=== PATIENT | female | born 1995 | race African-American/Black ===

== ENCOUNTER 2022-04-21 15:57 | Emergency (ER) | payer OTHER, SELFPAY ==
[2022-04-21 16:00] VITALS: BP 106/62; PULSE 96; RESP 16; TEMP 36.6; O2SAT 96
[2022-04-21 17:18] LABS: Basophils Percent Auto 0.5 % (0.2-1.2); Eosinophils Absolute Auto 0.1 K/mm3 (0-0.3); Eosinophils Percent Auto 1.3 % (0-4.4); Hematocrit 38.4 % (37.0-47.0); Immature Granulocyte Absolute 0.01 K/mm3 (0.00-0.031); Immature Granulocyte Percent A 0.2 % (0-0.5); Lymphocytes Absolute Auto 1.16 K/mm3 (0.9-3.2); Lymphocytes Percent Auto 19.2 % (18.3-44.2); Mean Corpuscular HGB Conc 33.9 g/dl (32-36); Mean Corpuscular Hemoglobin 33.1 pg (26-34); Mean Corpuscular Volume 97.7 fl (80-100); Mean Platelet Volume 9.3 fl (7.4-10.4); Monocytes Absolute Auto 0.4 K/mm3 (0.1-0.6); Monocytes Percent Auto 6.8 % (2.6-8.5); Neutrophils Absolute Auto 4.4 K/mm3 (1.3-6.7); Platelet Count Result 203 k/mm3 (150-375); Red Blood Count 3.93 M/mm3 (4.2-5.4); Red Cell Distribution Width 11.7 % (11.5-14.5)
[2022-04-21 17:30] LABS: Alanine Aminotransferase 39 U/L (6-35); Albumin Level 4.8 g/dL (3.5-5.1); Alkaline Phosphatase 53 U/L (38-126); Anion Gap 5 mmol/L (8-16); Aspartate Amino Transferase 30 U/L (14-36); Bilirubin,Total 0.6 mg/dL (0.2-1.3); Blood Urea Nitrogen 15 mg/dL (7-17); Calcium 8.9 mg/dL (8.4-10.2); Carbon Dioxide 26 mmol/L (22-30); Chloride 102 mmol/L (98-107); Estimated CRCL calculation 78 ml/min; Estimated Glomerular Filt Rate > 60; Glucose 132 mg/dL (65-110); Potassium 3.2 mmol/L (3.4-5.0); Sodium 133 mmol/L (137-145)
--- NOTE | 2022-04-21 18:04 | ED.FEMALEGU ---
HPI - Female Genitourinary General Chief complaint: Vaginal Bleeding Stated complaint: 6 wks , passed fetus in toilet Time Seen by Provider: 04/21/22 16:45 Source: patient Mode of arrival: ambulatory Limitations: no limitations History of Present Illness HPI Narrative: 27-year-old female presents today with complaints of vaginal bleeding and possible passing of a clot/fetus in the toilet today. Patient seen at [facility] [place] [place] in [place] on Friday for threatened miscarriage. Beta hCG on Friday was 2410 hemoglobin was in the 13's. Patient currently has no pain. Patient denies heavy vaginal bleeding, dizziness, chest pain, or shortness of breath. Related Data Allergies Allergy/AdvReac Type Severity Reaction Status Date / Time No Known Allergies Allergy Unverified 04/21/22 16:02 Review of Systems Review of Systems: CONSTITUTIONAL: Denies fever, chills, or sweats. EYES: Denies visual changes, redness, or discharge. ENT: Denies rhinorrhea, congestion, sore throat, or otalgia. CARDIOVASCULAR: Denies chest pain, palpitations, or edema. RESPIRATORY: Denies cough or dyspnea. GASTROINTESTINAL: Denies abdominal pain, nausea, vomiting, or diarrhea. GENITOURINARY: Vaginal bleeding with possible passing of a clot/fetus. Denies dysuria or hematuria. SKIN: Denies rash or itching. MUSCULOSKELETAL: Denies back pain, joint pain, or myalgia. NEUROLOGIC: Denies headache, numbness, dizziness, or weakness. PSYCHIATRIC: Denies anxiety or depression. Exam Narrative: GENERAL: Well-appearing, well-nourished, and in no acute distress. HEAD: Normocephalic, atraumatic. EYES: PERRLA and EOMI. NECK: Supple. No adenopathy or masses. No carotid bruits or JVD CHEST: Clear to auscultation. No respiratory distress. No wheezes rales or rhonchi HEART: Regular rate and rhythm. No murmur heard. Normal peripheral pulses. ABDOMEN: Soft, nontender, nondistended, normal active bowel sounds. : Patient declined pelvic exam at this time. Patient had pelvic exam and ultrasound done on Friday. SKIN: Warm, dry, no rash. NEURO: No focal deficits. Alert and oriented x3. PSYCH: Normal mood and affect. Course Course Emergency Course: 27-year-old female recently seen at another hospital on Friday. Patient was discharged with diagnosis of threatened miscarriage. Patient here with complaints of possible passing of fetus. Patient currently declining pelvic exam. Labs reviewed with patient. Patient aware she is currently having a miscarriage. She is instructed to follow-up with OB and call them on Friday. Vital Signs Vital signs: Vital Signs Temperature 36.6 C 04/21/22 16:00 Pulse Rate 96 04/21/22 16:00 Respiratory Rate 16 04/21/22 16:00 Blood Pressure 106/62 04/21/22 16:00 Pulse Oximetry 96 04/21/22 16:00 Oxygen Delivery Room Air 04/21/22 16:00 Temperature 36.6 C 04/21/22 16:00 Pulse Rate 96 04/21/22 16:00 Respiratory Rate 16 04/21/22 16:00 Blood Pressure 106/62 04/21/22 16:00 Pulse Oximetry 96 04/21/22 16:00 Oxygen Delivery Room Air 04/21/22 16:00 MDM - Female Genitourinary MDM Narrative Medical decision making narrative: 27-year-old female HPI as noted. Patient just seen in another emergency department on Friday. Patient declining vaginal exam at this time. Beta hCG on Friday was 2410 and today beta-hCG is 1613. Patient is B+. Hemoglobin today 13. RhoGAM not needed. Diagnosed with spontaneous . Patient is a 43 to follow-up with OB Friday. Differential Diagnosis Differential diagnosis: Likely other (Spontaneous , vaginal bleeding in ) Lab Data Result diagrams: 04/21/22 17:12 04/21/22 17:12 Labs: Lab Results 04/21/22 04/21/22 04/21/22 Range/Units 17:12 17:12 17:12 WBC 6.0 (4.5-10.0) K/mm3 RBC 3.93 L (4.2-5.4) M/mm3 Hgb 13.0 (12.0-15.0) g/dL Hct 38.4 (37.0-47.0) % MCV 97.7 (80-100) fl MCH 33.1 (26-34
== END 2022-04-21 18:30 | disposition home or self-care (01) ==
PROVIDERS: Emergency Provider Nurse Practitioner Family
DX: O03.9 Complete or unspecified spontaneous abortion without complication (principal)
CPT/HCPCS: 36415; 80053; 84702; 85025; 86900; 86901; 99283

== ENCOUNTER 2023-05-06 06:41 | Emergency (ER) | payer OTHER, SELFPAY ==
[2023-05-06 06:46] VITALS: BP 148/75; PULSE 93; RESP 14; TEMP 36.6; O2SAT 100
[2023-05-06 07:18] VITALS: BP 120/75; PULSE 78; RESP 18; O2SAT 100
--- NOTE | 2023-05-06 08:04 | PC.NURSE ---
pt LWBS, unable to wait. pt left with steady gait.
== END 2023-05-06 08:05 | disposition left against medical advice (07) ==
DX: G44.209 Tension-type headache, unspecified, not intractable (principal)
CPT/HCPCS: 99199

== ENCOUNTER 2024-06-05 22:45 | Outpatient (CLI) | payer OTHER, SELFPAY ==
--- NOTE | 2024-06-05 23:19 | PC.NURSE ---
Domi was notified via phone of the patient arriving to the OB department with complaints of generalized itching that started two weeks ago on her hands and feet has since spread all over. CNM notified that the patient has a OB at [facility] and was told via provider to go to the ER for her symptoms. notified that patient has taken Benadryl and it has not been working to reduce the itching. Anitra Pereyra gave orders to get a CMP, Bile Acids, and to get an NST.
[2024-06-06 00:33] LABS: Appearance Urine Clear (Clear); Bilirubin Urine Negative (Negative); Blood Urine Negative (Negative); Color Urine Yellow (Yellow); Glucose Urine UA Negative (Negative); Ketones Urine Negative (Negative); Leukocyte Esterase Ur Negative LEU/UL (Negative); Nitrate Urine Negative (Negative); Protein Urine Negative (Negative); Specific Grav Ur 1.011 (1.001-1.035); Urobilinogen Urine 0.2 mg/dL (<2.0); pH Urine 7.5 (5.0-9.0)
[2024-06-06 00:48] LABS: Add Urine Microscopic? NO
[2024-06-06 00:49] LABS: Alanine Aminotransferase 21 U/L (6-35); Albumin Level 3.7 g/dL (3.5-5.1); Alkaline Phosphatase 131 U/L (38-126); Anion Gap 7 mmol/L (4-12); Aspartate Amino Transferase 27 U/L (14-36); Bilirubin,Total 0.3 mg/dL (0.2-1.3); Blood Urea Nitrogen 8 mg/dL (7-17); Calcium 8.9 mg/dL (8.4-10.2); Carbon Dioxide 24 mmol/L (22-30); Chloride 105 mmol/L (98-107); Estimated Glomerular Filt Rate > 60; Glucose 67 mg/dL (65-110); Potassium 3.7 mmol/L (3.4-5.0); Sodium 136 mmol/L (137-145)
--- NOTE | 2024-06-06 01:30 | PC.NURSE ---
Domi in department for delivery. Update given to CNM on lab results. Anitra Pereyra reviewed tracing and talked to patient at the bedside. New orders received at this time for Ursodiol 300mg first dose given at time of care. RX sent to pharmacy.
--- NOTE | 2024-06-06 01:41 | OBADM ---
This patient, Irina Cuba, admitted to the OB room for observation. Patient/family oriented to hospital policies and general routines including ID bracelet, bed and alarms, visiting hours, pain management, procedures, bathroom and other care routines, personal items, smoking policy, room service/diet, and visiting hours. Patient/Family are encouraged to report perceived risks to care and to ask questions if they do not understand what they are told or what they should do.
[2024-06-06 02:04] VITALS: BMI 23.3
[2024-06-06] MEDS: ursodioL 300 MG CAPSULE PO (02:15)
[2024-06-12 18:57] LABS: Chenodeoxycholic Acid 1.6 umol/L (< OR = 3.9); Cholic Acid 0.6 umol/L (< OR = 2.8); Deoxycholic Acid <0.5 umol/L (< OR = 2.3); Total Bile Acids 2.2 umol/L (< OR = 8.3)
== END 2024-06-06 02:44 | disposition home or self-care (01) ==
PROVIDERS: Advanced Practice Midwife; Visit Provider Obstetrics & Gynecology
DX: Z34.90 Encounter for supervision of normal pregnancy, unspecified, unspecified trimester (principal); Z3A.00 Weeks of gestation of pregnancy not specified
CPT/HCPCS: 36415; 59025; 80053; 81003; 82542; A9270

== ENCOUNTER 2024-12-02 17:01 | Emergency (ER) | payer OTHER, SELFPAY ==
--- NOTE | ~2024-12-02 | CT_ITS ---
EXAMINATION: CT abdomen pelvis wo con DATE: 12/02/2024 19:22 INDICATION: Abdomen pain TECHNIQUE: Computed tomography (CT) of the abdomen and pelvis was performed without intravenous contr ast. The dose-length product was 192.92 mGy-cm. Automated exposure control and iterative reconstruction technique were employed. COMPARISON: None. FINDINGS: Lung bases are unremarkable. Heart size normal. No significant pleural or pericardial effus ion. The liver, spleen, pancreas, adrenal glands and kidneys are unremarkable for noncontrast CT. Gal lbladder is present. Nonobstructive bowel gas pattern. No free air or free fluid. No hydronephrosis. There are pelvic phleboliths. No lymphadenopathy. No acute osseous abnormality. IMPRESSION: 1. No acute abdominal abnormality. Reviewed, dictated and finalized at location A. [employer]
[2024-12-02 17:13] VITALS: BP 129/93; PULSE 76; RESP 18; TEMP 36.6; O2SAT 100
--- NOTE | 2024-12-02 17:31 | ED_ITS ---
HPI - Abdominal Pain General Chief Complaint: Abdominal Pain <Essie Johnson APRN - Last Filed: 12/02/24 17:33> Stated Complaint: ABDOMINAL BURNING <Essie Johnson APRN - Last Filed: 12/02/24 17:33> Time Seen by Provider: 12/02/24 17:20 <Essie Johnson APRN - Last Filed: 12/02/24 17:33> Focused HPI: Patient is a 29-year-old female who presents to the ER with vomiting and nausea that has been going on for approximately 2-3 weeks. She endorses a history of celiac disease, GERD, asthma. Patient reports she often has bouts of vomiting and nausea but has gotten exceptionally worse recently. She also endorses upper abdominal pain and ?a strange taste in my mouth. Patient endorses coughing and reports she will be sleeping and wake up ?choking. She endorses daily marijuana use to help increase her p.o. intake. Patient denies urinary symptoms, shortness of breath, lower abdominal pain, or back pain. GENERAL: Well-appearing, well-nourished, and in no acute distress. HEAD: Normocephalic, atraumatic. CHEST: Clear to auscultation. ?No respiratory distress. HEART: Regular rate and rhythm.? NEURO: ?Alert and oriented x3. Patient screened in triage and initial orders placed.? ?Additional care and disposition to be based upon?diagnostic testing and treatment. <Essie Jhonson APRN - Last Filed: 12/02/24 17:33> Related Data Home Medications: Home Medications ?Medication ?Instructions ?Recorded ?Confirmed ?Last Taken ?Type albuterol sulfate 90 mcg/actuation inhalation 06/06/24 Unknown History aerosol inhaler vitamins no.119-iron tablet PO 06/06/24 Unknown History fumarate 29 mg-folic acid 1 mg tablet (Se-Lizet-19) <Essie Johnson APRN - Last Filed: 12/02/24 17:33> Allergies/Adverse Reactions: Allergies Allergy/AdvReac Type Severity Reaction Status Date / Time Latex, Natural Rubber Allergy Rash Verified 12/02/24 18:02 <Essie Johnson APRN - Last Filed: 12/02/24 17:33> Review of Systems 2 Review of Systems: CONSTITUTIONAL: Denies fever GASTROINTESTINAL: Reports abdominal pain, nausea, vomiting <Pat Schneider PA-C - Last Filed: 12/02/24 19:53> All systems reviewed & are unremarkable except as noted in HPI and below < Pat Schneider PA-C - Last Filed: 12/02/24 19:53> PMFSH Past Medical History Medical History: Medical History (Updated 12/02/24 @ 19:50 by Pat Schneider PA-C) History of gastroesophageal reflux (GERD) <Essie Johnson RESIDENT ASSISTANT - Last Filed: 12/02/24 17:33> Social History Social History: Social History (Updated 12/02/24 @ 19:50 by Pat Schneider PA-C) Substance use: current Substance use type: marijuana <Essie Johnson, RESIDENT ASSISTANT - Last Filed: 12/02/24 17:33> Exam 2 Narrative: GENERAL: Well-appearing, well-nourished, and in no acute distress. HEAD: Normocephalic, atraumatic. EYES: EOMI. CHEST: Clear to auscultation. No respiratory distress. No wheezes rales or rhonchi HEART: Regular rate and rhythm. No murmur heard. Normal peripheral pulses. ABDOMEN: Soft, nontender, nondistended, normal active bowel sounds. EXTREMITIES: Normal range of motion. No edema. SKIN: Warm, dry, no rash. NEURO: No focal deficits. Alert and oriented x3. PSYCH: Normal mood and affect <Pat Schneider PA-C - Last Filed: 12/02/24 19:53> Course Course Emergency Course: Patient updated on her workup and agrees with plan of care <Pat Schneider PA-C - Last Filed: 12/02/24 19:53> Vital Signs Vital signs: Vital Signs Temperature 97.9 F 12/02/24 17:13 Pulse Rate 76 12/02/24 17:13 Respiratory Rate 18 12/02/24 17:13 Blood Pressure 129/93 H 12/02/24 17:13 Pulse Oximetry 100 12/02/24 17:13 Oxygen Delivery Room Air 12/02/24 17:13 Temperature 97.9 F 12/02/24 17:13 Pulse Rate 76 12/02/24 17:13 Respiratory Rate 18 12/02/24 17:13 Blood Pressure 129/93 H 12/02/24 17:13 Pulse Oximetry 100 12/02/24 17:13 Oxygen Delivery Room Air 12/02/24 17:13 <Essie Johnson, RESIDENT ASSISTANT - Last Filed: 12/02/24 17:33> Vital Signs Temperature 97.9 F 12/02/24 17:13 Pulse Rate 76 12/02/24 17:13 Respiratory Rate 18 12/02/24 17:13 Blood Pressure 129/93 H 12/02/24 17:13 Pulse Oximetry 100 12/02/24 17:13 Oxygen Delivery Room Air 12/02/24 17:13 Temperature 97.9 F 12/02/24 17:13 Pulse Rate 76 12/02/24 17:13 Respiratory Rate 18 12/02/24 17:13 Blood Pressure 129/93 H 12/02/24 17:13 Pulse Oximetry 100 12/02/24 17:13 Oxygen Delivery Room Air 12/02/24 17:13 <Pat Schneider PA-C - Last Filed: 12/02/24 19:53> MDM - Abdominal Pain MDM Narrative Medical decision making narrative: Patient presents the emergency department for abdominal discomfort, nausea and vomiting. Reporting severe acid reflux. She is afebrile and nontoxic appearing. Her vitals are stable. Cbc without leukocytosis. Metabolic panel and lipase without concerning findings. Urine without evidence of infection. CT abdomen and pelvis without concerning findings. Patient resting comfortably. Updated on her workup. 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 She was given warnings to return to the ER <Pta Schneider PA-C - Last Filed: 12/02/24 19:53> Differential Diagnosis Differential diagnosis: Likely gastroenteritis, pancreatitis and other (GERD, esophagitis, biliary colic) <Pat Schneider PA-C - Last Filed: 12/02/24 19:53> Lab Data Attestation: I reviewed the patient's lab results. <Pat Schneider PA-C - Last Filed: 12/02/24 19:53> Result diagrams: 12/02/24 17:41 12/02/24 17:41 <Essie Johnson, RESIDENT ASSISTANT - Last Filed: 12/02/24 17:33> Labs: Lab Results 12/02/24 12/02/24 12/02/24 Range/Units 17:41 18:03 18:42 WBC 5.4 (4.5-10.0) K/mm3 RBC 3.81 L (4.2-5.4) M/mm3 Hgb 11.5 L (12.0-15.0) g/dL Hct 35.1 L (37.0-47.0) % MCV 92.1 (80-100) fl MCH 30.2 (26-34) pg MCHC 32.8 (32-36) g/dl RDW 16.4 H (11.5-14.5) % Plt Count 223 (150-375) k/mm3 MPV 9.7 (7.4-10.4) fl Immature Gran % (Auto) 0.2 (0-0.5) % Neut % (Auto) 48.7 (45.5-73.1) % Lymph % (Auto) 35.2 (18.3-44.2) % Schley % (Auto) 8.7 H (2.6-8.5) % Eos % (Auto) 6.3 H (0-4.4) % Baso % (Auto) 0.9 (0.2-1.2) % Lymph # (Auto) 1.91 (0.9-3.2) K/mm3 Schley # (Auto) 0.5 (0.1-0.6) K/mm3 Eos # (Auto) 0.3 (0-0.3) K/mm3 Baso # (Auto) 0.1 (0.0-0.1) K/mm3 Abs Immat Gran (auto) 0.01 (0.00-0.031) K/mm3 Absolute Neuts (auto) 2.7 (1.3-6.7) K/mm3 Absolute Nucleated RBC 0.000 (0.0-0.012) K/mm3 Nucleated RBC % 0.0 (0.0-0.2) % Sodium 137 (137-145) mmol/L Potassium 3.8 (3.4-5.0) mmol/L Chloride 105 (98-107) mmol/L Carbon Dioxide 27 (22-30) mmol/L Anion Gap 5 (4-12) mmol/L BUN 16 (7-17) mg/dL Creatinine 0.78 (0.7-1.0) mg/dL Estim Creat Clear Calc 80 ml/min Estimated GFR > 60 (59 - ) Glucose 81 (65-110) mg/dL Calcium 9.1 (8.4-10.2) mg/dL Total Bilirubin 0.5 (0.2-1.3) mg/dL AST 29 (14-36) U/L ALT 21 (6-35) U/L Alkaline Phosphatase 53 (38-126) U/L Total Protein 7.0 (6.3-8.2) g/dL Albumin 4.5 (3.5-5.1) g/dL Lipase 102 (23-300) U/L Beta HCG, Quant < 2.39 mIU/ML Urine Color Yellow (Yellow) Urine Appearance Clear (Clear) Urine pH 6.5 (5.0-9.0) Ur Specific [place] 1.020 (1.001-1.035) Urine Protein Negative (Negative) mg/dL Urine Glucose (UA) Negative (Negative) mg/dL Urine Ketones Negative (Negative) mg/dL Ur Blood (Man) Negative (Negative) Urine Nitrate Negative (Negative) Urine Bilirubin Negative (Negative) Urine Urobilinogen 0.2 (<2.0) mg/dL Leukocyte Esterase Rfl Trace H (Negative) LEE/UL Urine RBC 0-2 (0-2) /hpf Urine WBC 0-5 (0-3) /hpf Ur Squamous Epith Cells None seen (Few) /hpf Urine Bacteria None seen /hpf Urine Casts 0-2 POC Urine HCG, Qual Negative (Negative) Influenza A (RT-PCR) Negative (Negative) Influenza B (RT-PCR) Negative (Negative) RSV (RT-PCR) Negative (Negative) SARS-CoV-2 RNA (RT-PCR) Negative (Negative) <Essie Johnson, RESIDENT ASSISTANT - Last Filed: 12/02/24 17:33> Lab Results 12/02/24 12/02/24 12/02/24 Range/Units 17:41 18:03 18:42 WBC 5.4 (4.5-10.0) K/mm3 RBC 3.81 L (4.2-5.4) M/mm3 Hgb 11.5 L (12.0-15.0) g/dL Hct 35.1 L (37.0-47.0) % MCV 92.1 (80-100) fl MCH 30.2 (26-34) pg MCHC 32.8 (32-36) g/dl RDW 16.4 H (11.5-14.5) % Plt Count 223 (150-375) k/mm3 MPV 9.7 (7.4-10.4) fl Immature Gran % (Auto) 0.2 (0-0.5) % Neut % (Auto) 48.7 (45.5-73.1) % Lymph % (Auto) 35.2 (18.3-44.2) % Schley % (Auto) 8.7 H (2.6-8.5) % Eos % (Auto) 6.3 H (0-4.4) % Baso % (Auto) 0.9 (0.2-1.2) % Lymph # (Auto) 1.91 (0.9-3.2) K/mm3 Schley # (Auto) 0.5 (0.1-0.6) K/mm3 Eos # (Auto) 0.3 (0-0.3) K/mm3 Baso # (Auto) 0.1 (0.0-0.1) K/mm3 Abs Immat Gran (auto) 0.01 (0.00-0.031) K/mm3 Absolute Neuts (auto) 2.7 (1.3-6.7) K/mm3 Absolute Nucleated RBC 0.000 (0.0-0.012) K/mm3 Nucleated RBC % 0.0 (0.0-0.2) % Sodium 137 (137-145) mmol/L Potassium 3.8 (3.4-5.0) mmol/L Chloride 105 (98-107) mmol/L Carbon Dioxide 27 (22-30) mmol/L Anion Gap 5 (4-12) mmol/L BUN 16 (7-17) mg/dL Creatinine 0.78 (0.7-1.0) mg/dL Estim Creat Clear Calc 80 ml/min Estimated GFR > 60 (59 - ) Glucose 81 (65-110) mg/dL Calcium 9.1 (8.4-10.2) mg/dL Total Bilirubin 0.5 (0.2-1.3) mg/dL AST 29 (14-36) U/L ALT 21 (6-35) U/L Alkaline Phosphatase 53 (38-126) U/L Total Protein 7.0 (6.3-8.2) g/dL Albumin 4.5 (3.5-5.1) g/dL Lipase 102 (23-300) U/L Beta HCG, Quant < 2.39 mIU/ML Urine Color Yellow (Yellow) Urine Appearance Clear (Clear) Urine pH 6.5 (5.0-9.0) Ur Specific [place] 1.020 (1.001-1.035) Urine Protein Negative (Negative) mg/dL Urine Glucose (UA) Negative (Negative) mg/dL Urine Ketones Negative (Negative) mg/dL Ur Blood (Man) Negative (Negative) Urine Nitrate Negative (Negative) Urine Bilirubin Negative (Negative) Urine Urobilinogen 0.2 (<2.0) mg/dL Leukocyte Esterase Rfl Trace H (Negative) LEE/UL Urine RBC 0-2 (0-2) /hpf Urine WBC 0-5 (0-3) /hpf Ur Squamous Epith Cells None seen (Few) /hpf Urine Bacteria None seen /hpf Urine Casts 0-2 POC Urine HCG, Qual Negative (Negative) Influenza A (RT-PCR) Negative (Negative) Influenza B (RT-PCR) Negative (Negative) RSV (RT-PCR) Negative (Negative) SARS-CoV-2 RNA (RT-PCR) Negative (Negative) <Pat Schneider PA-C - Last Filed: 12/02/24 19:53> Imaging Data Radiologist's impression: ITS Impressions Abdomen/Pelvis CT 12/02/24 19:27 IMPRESSION: 1. No acute abdominal abnormality. <Essie Johnson APRN - Last Filed: 12/02/24 17:33> ITS Impressions Abdomen/Pelvis CT 12/02/24 19:27 IMPRESSION: 1. No acute abdominal abnormality. <JANA Kingston Last Filed: 12/02/24 19:53> Critical Care Time Critical Care Time Critical Care Time: No <JANA Kingston Last Filed: 12/02/24 19:53> Discharge Plan Discharge Clinical Impression: Abdominal pain Qualifiers: Abdominal location: epigastric Qualified Code(s): R10.13 - Epigastric pain <Essie Johnson APRN - Last Filed: 12/02/24 17:33> Patient Disposition: Home, Self-Care <Essie Johnson APRN - Last Filed: 12/02/24 17:33> Condition: Improved <Essie Johnson APRN - Last Filed: 12/02/24 17:33> Instructions: GERD (Gastroesophageal Reflux Disease) (ED), Abdominal Pain (ED) <Essie Johnson APRN - Last Filed: 12/02/24 17:33> Additional Instructions: Return to the ER if you experience fever, abdominal pain with nausea and vomiting, you are unable to keep down liquids or solids, blood in the stool, pain or burning with urination, blood in the urine or any other symptoms that are concerning to you Small, frequent meals. [place] diet. Remain well hydrated. Continue your omeprazole. Avoid spicy/acidic foods. Avoid anti-inflammatories. Avoid eating just before bedtime Follow up with your motion picture actor <Essie Johnson APRN - Last Filed: 12/02/24 17:33> Patient Language: Arabic <Essie Johnson APRN - Last Filed: 12/02/24 17:33> Prescriptions: New ondansetron 4 mg tablet,disintegrating 4 mg PO Q8H PRN (Reason: nausea and vomiting) Qty: 14 0RF No Action albuterol sulfate 90 mcg/actuation HFA aerosol inhaler INHALATION Se-Lizet-19 29 mg iron- 1 mg tablet PO ursodiol 300 mg Capsule 300 mg PO BID Qty: 14 0RF <Essie Johnson APRN - Last Filed: 12/02/24 17:33> Follow-up/Referrals: UNKNOWN,DOCTOR [Primary Care Provider] - <Essie Johnson APRN - Last Filed: 12/02/24 17:33>
[2024-12-02 17:49] LABS: Basophils Absolute Auto 0.1 K/mm3 (0.0-0.1); Basophils Percent Auto 0.9 % (0.2-1.2); Eosinophils Absolute Auto 0.3 K/mm3 (0-0.3); Eosinophils Percent Auto 6.3 % (0-4.4); Hematocrit 35.1 % (37.0-47.0); Hemoglobin 11.5 g/dL (12.0-15.0); Immature Granulocyte Absolute 0.01 K/mm3 (0.00-0.031); Immature Granulocyte Percent A 0.2 % (0-0.5); Lymphocytes Absolute Auto 1.91 K/mm3 (0.9-3.2); Lymphocytes Percent Auto 35.2 % (18.3-44.2); Mean Corpuscular HGB Conc 32.8 g/dl (32-36); Mean Corpuscular Hemoglobin 30.2 pg (26-34); Mean Corpuscular Volume 92.1 fl (80-100); Mean Platelet Volume 9.7 fl (7.4-10.4); Monocytes Absolute Auto 0.5 K/mm3 (0.1-0.6); Monocytes Percent Auto 8.7 % (2.6-8.5); Neutrophils Absolute Auto 2.7 K/mm3 (1.3-6.7); Neutrophils Percent Auto 48.7 % (45.5-73.1); Platelet Count Result 223 k/mm3 (150-375); Red Blood Count 3.81 M/mm3 (4.2-5.4); Red Cell Distribution Width 16.4 % (11.5-14.5); White Blood Count 5.4 K/mm3 (4.5-10.0)
[2024-12-02 18:00] LABS: Alanine Aminotransferase 21 U/L (6-35); Albumin Level 4.5 g/dL (3.5-5.1); Alkaline Phosphatase 53 U/L (38-126); Anion Gap 5 mmol/L (4-12); Aspartate Amino Transferase 29 U/L (14-36); Bilirubin,Total 0.5 mg/dL (0.2-1.3); Blood Urea Nitrogen 16 mg/dL (7-17); Calcium 9.1 mg/dL (8.4-10.2); Carbon Dioxide 27 mmol/L (22-30); Chloride 105 mmol/L (98-107); Estimated CRCL calculation 80 ml/min; Estimated Glomerular Filt Rate > 60; Glucose 81 mg/dL (65-110); Lipase 102 U/L (23-300); Potassium 3.8 mmol/L (3.4-5.0); Sodium 137 mmol/L (137-145)
[2024-12-02] MEDS: LIDOCAINE 2% VISC SOLN 15 ML UDC 20 ML PO (18:01)
[2024-12-02] MEDS: MAG HYDROX/AL HYDROX/SIMETH 30 ML UDC PO (18:01)
[2024-12-02 18:15] LABS: Beta HCG Quantitative < 2.39 mIU/ML
[2024-12-02 18:16] LABS: Add Urine Microscopic? YES; Appearance Urine Clear (Clear); Bacteria Urine None Seen /hpf; Bilirubin Urine Negative (Negative); Blood Urine Negative (Negative); Color Urine Yellow (Yellow); Glucose Urine UA Negative (Negative); Ketones Urine Negative (Negative); Leukocyte Esterase Ur Trace LEU/UL (Negative); Nitrate Urine Negative (Negative); Non Pathogenic Casts 0-2; Protein Urine Negative (Negative); RBC Urine 0-2 /hpf (0-2); Squamous Epithelial Cell Urine None Seen /hpf (Few); Urobilinogen Urine 0.2 mg/dL (<2.0); WBC Urine 0-5 /hpf (0-3); pH Urine 6.5 (5.0-9.0)
[2024-12-02 18:25] LABS: Influenza A QL RT-PCR Negative (Negative); Influenza B QL RT-PCR Negative (Negative); RSV RNA, RT-PCR Negative (Negative); SARS-CoV-2 RNA PCR Negative (Negative)
[2024-12-02 18:43] LABS: BEDSIDEPREGUCG Negative (Negative)
[2024-12-02] MEDS: ONDANSETRON INJ 4 MG/2 ML VIAL IV PUSH (18:57)
[2024-12-02] MEDS: FAMOTIDINE 20 MG/2 ML VIAL IV PUSH (18:57)
[2024-12-02 20:16] VITALS: BP 126/88; PULSE 82; RESP 16; O2SAT 99
[2024-12-02 20:17] VITALS: BP 126/88; PULSE 82; RESP 16; O2SAT 99
== END 2024-12-02 20:19 | disposition home or self-care (01) ==
PROVIDERS: Registered Nurse; Emergency Provider Physician Assistant
DX: R10.13 Epigastric pain (principal); J45.909 Unspecified asthma, uncomplicated; K90.0 Celiac disease; K21.9 Gastro-esophageal reflux disease without esophagitis; Z20.822 Contact with and (suspected) exposure to COVID-19
CPT/HCPCS: 36415; 74176; 80053; 81001; 81025; 83690; 84702; 85025; 87637; 96374; 96375; 99284; A9270; J2405

== ENCOUNTER 2025-05-31 06:43 | Emergency (ER) | payer OTHER, SELFPAY ==
--- OUTSIDE RECORDS SUMMARY | 2025-05-31 06:45 | XMS_ITS | Data Portability ---
Author Organization [facility] Address [address] [place] [address] Assessment No assessment recorded. Plan of Treatment Reminders Order Date Submit Date Provider Last Modified By Organization Details Last Modified Time Details Appointments None recorded. Lab CMP, serum or plasma 2024 025 [facility] (Lab), [address] [place], [address], 20:36:55 CBC 2024 025 [facility] (Lab), [address] [place], [address], 20:57:38 CBC w/ auto diff 2021 022 [facility] (Lab), [address] [place], [address], 20:25:31 CMP, serum or plasma 2021 [facility] (Lab), [address] [place], [address], 20:45:54 Referral endocrinol ogy referral 2021 [facility] , [address], [address], [place], [address], 16:55:15 Procedures esophagoga stroduoden oscopy with esophageal dilation (PROC) - PATIENT TO FOLLOW UP 2 WEEKS IN CLINIC 2024 025 [facility] (Surgery Sched), [address] [place], [address], 15:24:39 Surgeries None recorded. Imaging None recorded. Medication Orders ondansetro n 4 mg disintegra ting tablet 2024 025 [facility][id number], [address], [place], [place], [id number], 5 11:08:16 famotidine 20 mg tablet 2024 025 [facility] #[id number], [address], [place], [place], [id number], 5 11:09:00 docusate sodium 100 mg capsule [address] [facility][id number], [address], [place], [place], [id number], 11:05:24 omeprazole 40 mg capsule,de layed release 2021 [facility] #[id number], [address], [place], [place], [id number], 10:43:14 Patient TargetsNo targets recorded. Patient InstructionsNo instructions recorded. Reason for Referral Endocrinology Referral for A bnormal weight loss Referring Physician: Wayne Jordan, Gastroenterology, Encounter Date: 09/06/2022 Results Created Date Observation Date Name Description Value Unit Range Abnormal Flag Note LastModifiedBy Organization Detail LastModifiedTime 09/06/2009/06/2022 CBC W/DIF F WBC 4.3 K/uL 3.4-10 .8 Not Available [facility] (Lab) [address], [place], [address], 09/06/2022 20:25:31 09/06/20 22 09/06/2022 CBC W/DIF F red blood count 3.9 M/uL 4.2-5. 4 low Not Available [facility] (Lab) [address], [place], [address], 09/06/2022 20:25:31 09/06/20 22 09/06/2022 CBC W/DIF F hemoglobin 13.1 g/dL 11.5-1 5.5 Not Available [facility] (Lab) [address], [place], [address], 09/06/2022 20:25:31 09/06/20 22 09/06/2022 CBC W/DIF F hematocrit 37.5 % 36.0-4 8.0 Not Available [facility] (Lab) [address] [facility], [place], [address], 09/06/2022 20:25:31 09/06/20 22 09/06/2022 CBC W/DIF F MCV 97 fL 80-95 high Not Available [facility] (Lab) [address] [facility], [place], [address], 09/06/2022 20:25:31 09/06/20 22 09/06/2022 CBC W/DIF F MCH 34 pg 27-32 high Not Available [facility] (Lab) [address], [place], [address], 09/06/2022 20:25:31 09/06/20 22 09/06/2022 CBC W/DIF F MCHC 35 g/dL 32-36 Not Available [facility] (Lab) [address] [place], [address], 09/06/2022 20:25:31 09/06/20 22 09/06/2022 CBC W/DIF F platelets 241 K/uL 155-37 9 Not Available [facility] (Lab) [address] [place], [address], 09/06/2022 20:25:31 09/06/20 22 09/06/2022 CBC W/DIF F RDW 12.4 % 11.5-1 4.5 Not Available [facility] (Lab) [address] [place], [address], 09/06/2022 20:25:31 09/06/20 22 09/06/2022 CBC W/DIF F MPV 10.5 fL 8.9-12 .7 Not Available [facility] (Lab) [address] [facility], [place], [address], 09/06/2022 20:25:31 09/06/20 22 09/06/2022 CBC W/DIF F NRBC (auto) 0 % Not Available [facility] (Lab) [address] [facility], [place], [address], 09/06/2022 20:25:31 09/06/20 22 09/06/2022 CBC W/DIF F neutrophils absolute 2.2 K/uL 1.4-7. 0 Not Available [facility] (Lab) [address] [facility], [place], [address], 09/06/2022 20:25:31 09/06/20 22 09/06/2022 CBC W/DIF F lymphs (absolute) 1.1 K/uL 0.7-3. 1 Not Available [facility] (Lab) [address] [place], [address], 09/06/2022 20:25:31 09/06/20 22 09/06/2022 CBC W/DIF F monocytes (absolute) 0.4 K/uL 0.1-0. 9 Not Available [facility] (Lab) [address] [place], [address], 09/06/2022 20:25:31 09/06/20 22 09/06/2022 CBC W/DIF F eos (absolute) 0.5 K/uL 0.0-0. 4 high Not Available [facility] (Lab) [address] [place], [address], 09/06/2022 20:25:31 09/06/20 22 09/06/2022 CBC W/DIF F baso (absolute) 0.1 K/uL 0.0-0. 3 Not Available [facility] (Lab) [address] [facility], [place], [address], 09/06/2022 20:25:31 09/06/20 22 09/06/2022 CBC W/DIF F immature grans( abs) 0.0 K/uL Not Available [facility] (Lab) [address] [facility], [place], [address], 09/06/2022 20:25:31 09/06/20 22 09/06/2022 CBC W/DIF F neut % 51.8 % 40.0-7 4.0 Not Available [facility] (Lab) [address] [facility], [place], [address], 09/06/2022 20:25:31 09/06/20 22 09/06/2022 CBC W/DIF F lymphs % 26.1 % 14.0-4 6.0 Not Available [facility] (Lab) [address] [facility], [place], [address], 09/06/2022 20:25:31 09/06/20 22 09/06/2022 CBC W/DIF F mono % 8.2 % 4.0-12 .0 Not Available [facility] (Lab) [address] [facility], [place], [address], 09/06/2022 20:25:31 09/06/20 22 09/06/2022 CBC W/DIF F eos % 13 % 0-5 high Not Available [facility] (Lab) [address] [facility], [place], [address], 09/06/2022 20:25:31 09/06/20 22 09/06/2022 CBC W/DIF F baso % 1.2 % 0.0-1. 0 high Not Available [facility] (Lab) [address] [facility], [place], [address], 09/06/2022 20:25:31 09/06/20 22 09/06/2022 CBC W/DIF F immature grans% 0.0 % Not Available [facility] ([facility]) [address] [facility], [place], [address], 09/06/2022 20:25:31 09/06/20 22 09/06/2022 COMPR EHENS CITLALLI METAB OLIC PANEL glucose, serum 82 mg/dL 65-99 Not Available [facility] (Lab) [address] [place], [address], 09/06/2022 20:45:54 09/06/20 22 09/06/2022 COMPR EHENS CITLALLI METAB OLIC PANEL BUN 15 mg/dL 8-26 Not Available [facility] (Lab) [address] [facility], [place], [address], 09/06/2022 20:45:54 09/06/20 22 09/06/2022 COMPR EHENS CITLALLI METAB OLIC PANEL creatinine, serum 0.67 mg/dL 0.50-1 .40 Not Available [facility] (Lab) [address] [facility], [place], [address], 09/06/2022 20:45:54 09/06/20 22 09/06/2022 COMPR EHENS CITLALLI METAB OLIC PANEL BUN/creatnin e ratio 21.9 Not Available [facility] (Lab) [address] [place], [address], 09/06/2022 20:45:54 09/06/20 22 09/06/2022 COMPR EHENS CITLALLI METAB OLIC PANEL sodium, serum 136.0 mmol/ L 136.0- 144.0 Not Available [facility] (Lab) [address] [place], [address], 09/06/2022 20:45:54 09/06/20 22 09/06/2022 COMPR EHENS CITLALLI METAB OLIC PANEL potassium, serum 4.0 mmol/ L 3.5-5. 3 Not Available [facility] (Lab) [address] [place], [address], 09/06/2022 20:45:54 09/06/20 22 09/06/2022 COMPR EHENS CITLALLI METAB OLIC PANEL chloride, serum 102 mmol/ l 101-11 1 Not Available [facility] (Lab) [address], [place], [address], 09/06/2022 20:45:54 09/06/20 22 09/06/2022 COMPR EHENS CITLALLI METAB OLIC PANEL carbon dioxide total 25.2 mmol/ L 21.0-3 2.0 Not Available [facility] (Lab) [address], [place], [address], 09/06/2022 20:45:54 09/06/20 22 09/06/2022 COMPR EHENS CITLALLI METAB OLIC PANEL aniongp 13.0 mmol/ L Not Available [facility] (Lab) [address], [place], [address], 09/06/2022 20:45:54 09/06/20 22 09/06/2022 COMPR EHENS CITLALLI METAB OLIC PANEL calcium, serum 9.3 mg/dL 8.2-10 .0 Not Available [facility] (Lab) [address] [place], [address], 09/06/2022 20:45:54 09/06/20 22 09/06/2022 COMPR EHENS CITLALLI METAB OLIC PANEL total protein 6.7 g/dL 6.7-8. 2 Not Available [facility] (Lab) [address] [place], [address], 09/06/2022 20:45:54 09/06/20 22 09/06/2022 COMPR EHENS CITLALLI METAB OLIC PANEL albumin, serum 4.5 g/dL 3.5-5. 5 Not Available [facility] (Lab) [address] [place], [address], 09/06/2022 20:45:54 09/06/20 22 09/06/2022 COMPR EHENS CITLALLI METAB OLIC PANEL total globulin 2.2 g/dL 1.5-4. 5 Not Available [facility] (Lab) [address], [place], [address], 09/06/2022 20:45:54 09/06/20 22 09/06/2022 COMPR EHENS CITLALLI METAB OLIC PANEL agratio 2.0 Not Available [facility] (Lab) [address] [facility], [place], [address], 09/06/2022 20:45:54 09/06/20 22 09/06/2022 COMPR EHENS CITLALLI METAB OLIC PANEL bilt 0.3 mg/dL 0.0-1. 2 Not Available [facility] (Lab) [address] [place], [address], 09/06/2022 20:45:54 09/06/20 22 09/06/2022 COMPR EHENS CITLALLI METAB OLIC PANEL AST 31.0 U/L 10.0-4 2.0 Not Available [facility] (Lab) [address] [facility], [place], [address], 09/06/2022 20:45:54 09/06/20 22 09/06/2022 COMPR EHENS CITLALLI METAB OLIC PANEL ALT 24.6 U/L 10.0-6 0.0 Not Available [facility] (Lab) [address] [place], [address], 09/06/2022 20:45:54 09/06/20 22 09/06/2022 COMPR EHENS CITLALLI METAB OLIC PANEL alk phos 59.1 IU/L 42.0-1 21.0 Not Available [facility] (Lab) [address] [place], [address], 09/06/2022 20:45:54 09/06/20 22 09/06/2022 COMPR EHENS CITLALLI METAB OLIC PANEL osmol 272.0 mOsm/ L 275.0- 301.0 low Not Available [facility] (Lab) [address] [place], [address], 09/06/2022 20:45:54 09/06/20 22 09/06/2022 COMPR EHENS CITLALLI METAB OLIC PANEL eGFR 123 mL/mi n/1.7 3 >=60 Not Available [facility] (Lab) [address] [place], [address], 09/06/2022 20:45:54 12/17/19 24 12/25/2023 Human papil amita virus 16+18 +31+3 3+35+ 39+45 +51+5 2+56+ 58+59 +66+6 8 DNA [Pres ence] in Cervi x by Probe with signa l ampli ficat ion pathology report final diagnosis narrative Commen t abnormal Diagn osis Comme nt (A) 12/25 11:12 AM [facility] ([facility] ) Not Available Not Available 01/12/2025 10:19:03 12/17/19 24 12/25/2023 Human papil amita virus 16+18 +31+3 3+35+ 39+45 +51+5 2+56+ 58+59 +66+6 8 DNA [Pres ence] in Cervi x by Probe with signa l ampli ficat ion recommendati on Commen t abnormal Recom menda tion Comme nt (A) 12/25 11:12 AM [facility] ([facility] ) Not Available Not Available 01/12/2025 10:19:03 12/17/19 24 12/25/2023 Human papil amita virus 16+18 +31+3 3+35+ 39+45 +51+5 2+56+ 58+59 +66+6 8 DNA [Pres ence] in Cervi x by Probe with signa l ampli ficat ion statement of adequacy [interpretat ion] of cervical or vaginal smear or scraping by cyto stain Commen t Speci men Adequ acy Comme nt 12/25 11:12 AM [facility] ([facility] ) Not Available Not Available 01/12/2025 10:19:03 12/17/19 24 12/25/2023 Human papil amita virus 16+18 +31+3 3+35+ 39+45 +51+5 2+56+ 58+59 +66+6 8 DNA [Pres ence] in Cervi x by Probe with signa l ampli ficat ion performed by Hui Amor rmed by Anabel nt 12/25 11:12 AM [facility] ([facility] ) Not Available Not Available 01/12/2025 10:19:03 12/17/19 24 12/25/2023 Human papil amita virus 16+18 +31+3 3+35+ 39+45 +51+5 2+56+ 58+59 +66+6 8 DNA [Pres ence] in Cervi x by Probe with signa l ampli ficat ion electronical ly signed by Hui Mendoza d by Comme nt 12/25 11:12 AM [facility] ([facility] ) Not Available Not Available 01/12/2025 10:19:03 12/17/19 24 12/25/2023 Human papil amita virus 16+18 +31+3 3+35+ 39+45 +51+5 2+56+ 58+59 +66+6 8 DNA [Pres ence] in Cervi x by Probe with signa l ampli ficat ion microscopic observation [identifier] in specimen by other stain . Comme nt . 12/25 11:12 AM [facility] ([facility] ) Not Available Not Available 01/12/2025 10:19:03 12/17/19 24 12/25/2023 Human papil amita virus 16+18 +31+3 3+35+ 39+45 +51+5 2+56+ 58+59 +66+6 8 DNA [Pres ence] in Cervi x by Probe with signa l ampli ficat ion pathologist provided ICD10 Hui irvin Provi ded ICD10 Comme nt 12/25 11:12 AM [facility] ([facility] ) Not Available Not Available 01/12/2025 10:19:03 12/17/19 24 12/25/2023 Human papil amita virus 16+18 +31+3 3+35+ 39+45 +51+5 2+56+ 58+59 +66+6 8 DNA [Pres ence] in Cervi x by Probe with signa l ampli ficat ion note Commen t Note Comme nt 12/25 11:12 AM [facility] ([facility] ) Not Available Not Available 01/12/2025 10:19:03 12/17/19 24 12/25/2023 Human papil amita virus 16+18 +31+3 3+35+ 39+45 +51+5 2+56+ 58+59 +66+6 8 DNA [Pres ence] in Cervi x by Probe with signa l ampli ficat ion iglbp CPT code automation Commen t IGLBP CPT Code Autom ation Comme nt 12/25 11:12 AM [facility] ([facility] ) Not Available Not Available 01/12/2025 10:19:03 12/17/19 24 12/25/2023 Human papil amita virus 16+18 +31+3 3+35+ 39+45 +51+5 2+56+ 58+59 +66+6 8 DNA [Pres ence] in Cervi x by Probe with signa l ampli ficat ion note Commen t Note Comme nt 12/25 11:12 AM [facility] ([facility] ) Not Available Not Available 01/12/2025 10:19:03 12/17/19 24 12/25/2023 Human papil amita virus 16+18 +31+3 3+35+ 39+45 +51+5 2+56+ 58+59 +66+6 8 DNA [Pres ence] in Cervi x by Probe with signa l ampli ficat ion Unknown Analyte Perfor med at: 01 - [facility] [address] [place] [place], [place] [address] Lab Direct or: Marisol Rodas MD, Perfor med at: 02 - [facility] [place] [address] [facility], [place], [place] [address] Lab Direct or: Catrachito Marino MD, Specim en Commen t: No. of contai ners.. 01 ThinPr ep Vial Perfo rmed at: 01 - [facility] [place] [address] , [place] [address] Lab Direc tor: Maris monaco MD, Phone : [phone] Perfo rmed at: 02 - [facility] [place] [address] [address] [address] [facility] , [place] [address] Lab Direc tor: Catrachito mahoney MD, Phone : [phone] Speci men Comme nt: No. of conta iners ..01 ThinP rep Vial Not Available Not Available 01/12/2025 10:19:03 12/17/19 24 12/25/2023 Human papil amita virus 16+18 +31+3 3+35+ 39+45 +51+5 2+56+ 58+59 +66+6 8 DNA [Pres ence] in Cervi x by Probe with signa l ampli ficat ion interpretati on and review of laboratory results Abnorm al Not Available Not Available 10:19:03 12/17/19 24 12/17/2023 HIV 1+2 Ab+HI V1 p24 Ag [Pres ence] in Serum or Plasm a by Immun oassa y HIV 1+2 Ab+HIV1 P24 Ag [presence] in serum or plasma by immunoassay Non Reacti ve text: non reacti ve HIV1/ 2 Ab + P24 Ag Non React citlalli Non React citlalli 12/17 3:35 PM [facility] SUPER[facility] [facility] Not Available Not Available 01/12/2025 10:19:03 12/17/19 24 12/17/2023 HIV 1+2 Ab+HI V1 p24 Ag [Pres ence] in Serum or Plasm a by Immun oassa y Unknown Analyte No Labora tory eviden ce of HIV infect ion. No Labor atory evide nce of HIV infec tion. Not Available Not Available 01/12/2025 10:19:03 12/17/19 24 12/17/2023 HIV 1+2 Ab+HI V1 p24 Ag [Pres ence] in Serum or Plasm a by Immun oassa y interpretati on and review of laboratory results Normal Not Available Not Available 12/19 10:19:03 12/17/19 24 12/17/2023 Hepat itis C virus Ab [Pres ence] in Serum hepatitis C virus Ab [presence] in serum Non Reacti ve text: non reacti ve HCV Antib coco Scree n Non React citlalli Non React citlalli 12/17 3:15 PM [facility] SU[employer] [facility] Not Available Not Available 01/12/2025 10:19:03 12/17/19 24 12/17/2023 Hepat itis C virus Ab [Pres ence] in Serum Unknown Analyte Non Reacti ve - Antibo dies to Hepati tis C virus (HCV) were not detect ed, result does not exclud e early acute HCV infect ion. Non React citlalli - Antib odies to Hepat itis C virus (HCV) were not detec jaswant, resul t does not exclu de early acute HCV infec tion. Not Available Not Available 01/12/2025 10:19:03 12/17/19 24 12/17/2023 Hepat itis C virus Ab [Pres ence] in Serum interpretati on and review of laboratory results Normal Not Available Not Available 12/19 10:19:03 03/02/20 24 03/02/2024 CBC W Auto Diffe renti al panel - Blood leukocytes [#/volume] in blood by automated count 8.8 text: 4.0 - 10.7 x10e9/ L WBC 8.8 4.0 - 10.7 x10E9 /L 03/02 8:34 PM CDT [facility] Not Available Not Available 01/12/2025 10:18:54 03/02/20 24 03/02/2024 CBC W Auto Diffe renti al panel - Blood erythrocytes [#/volume] in blood by automated count 2.97 text: 3.90 - 5.20 x10e12 /L low RBC Count 2.97 (L) 3.90 - 5.20 x10E1 2/L 03/02 8:34 PM CDT [facility] Not Available Not Available 01/12/2025 10:18:54 03/02/20 24 03/02/2024 CBC W Auto Diffe renti al panel - Blood hemoglobin [mass/volume ] in blood 10.1 g/dL low: 11.9g/ dLhigh : 15.8g/ dL low Hemog lobin 10.1 (L) 11.9 - 15.8 g/dL 03/02 8:34 PM CDT [facility] Not Available Not Available 01/12/2025 10:18:54 03/02/20 24 03/02/2024 CBC W Auto Diffe dominga al panel - Blood hematocrit [volume fraction] of blood by automated count 28.8 % low: 34.8%h igh: 46.1% low Hemat ocrit 28.8 (L) 34.8 - 46.1 % 03/02 8:34 PM CDT [facility] Not Available Not Available 01/12/2025 10:18:54 03/02/20 24 03/02/2024 CBC W Auto Diffe dominga al panel - Blood MCV [entitic volume] by automated count 97 fL low: 80fLhi gh: 98fL MCV 97.0 80.0 - 98.0 fL 03/02 8:34 PM CDT [facility] Not Available Not Available 01/12/2025 10:18:54 03/02/20 24 03/02/2024 CBC W Auto Diffe dominga cabrera panel - Blood MCH [entitic mass] by automated count 34 pg low: 26.7pg high: 33.6pg high MCH 34.0 (H) 26.7 - 33.6 pg 03/02 8:34 PM CDT [facility] Not Available Not Available 01/12/2025 10:18:54 03/02/20 24 03/02/2024 CBC W Auto Diffe dominga al panel - Blood MCHC [mass/volume ] by automated count 35.1 g/dL low: 31.7g/ dLhigh : 36.3g/ dL MCHC 35.1 31.7 - 36.3 g/dL 03/02 8:34 PM CDT [facility] Not Available Not Available 01/12/2025 10:18:54 03/02/20 24 03/02/2024 CBC W Auto Diffe dominga al panel - Blood erythrocyte distribution width [ratio] by automated count 13.3 % low: 11.3%h igh: 14.8% RDW-C V 13.3 11.3 - 14.8 % 03/02 8:34 PM CDT [facility] Not Available Not Available 01/12/2025 10:18:54 03/02/20 24 03/02/2024 CBC W Auto Diffe renti al panel - Blood platelets [#/volume] in blood by automated count 212 text: 150 - 420 x10e9/ L Plate let Count 212 150 - 420 x10E9 /L 03/02 8:34 PM CDT [facility] Not Available Not Available 01/12/2025 10:18:54 03/02/20 24 03/02/2024 CBC W Auto Diffe renti al panel - Blood platelet mean volume [entitic volume] in blood by automated count 10.4 fL low: 7.8fLh igh: 11.4fL MPV 10.4 7.8 - 11.4 fL 03/02 8:34 PM CDT [facility] Not Available Not Available 01/12/2025 10:18:54 03/02/20 24 03/02/2024 CBC W Auto Diffe renti al panel - Blood neutrophils/ 100 leukocytes in blood by automated count 66.8 % low: 41%hig h: 74% Neutr ophil % 66.8 41.0 - 74.0 % 03/02 8:34 PM CDT [facility] Not Available Not Available 01/12/2025 10:18:54 03/02/20 24 03/02/2024 CBC W Auto Diffe renti al panel - Blood lymphocytes/ 100 leukocytes in blood by automated count 19.4 % low: 17%hig h: 47% Lymph ocyte % 19.4 17.0 - 47.0 % 03/02 8:34 PM CDT [facility] Not Available Not Available 01/12/2025 10:18:54 03/02/20 24 03/02/2024 CBC W Auto Diffe renti al panel - Blood monocytes/10 0 leukocytes in blood by automated count 8.4 % low: 3%high : 11% Monoc yte % 8.4 3.0 - 11.0 % 03/02 8:34 PM CDT [facility] Not Available Not Available 01/12/2025 10:18:54 03/02/20 24 03/02/2024 CBC W Auto Diffe renti al panel - Blood eosinophils/ 100 leukocytes in blood by automated count 4.9 % low: 0%high : 7% Eosin ophil % 4.9 0.0 - 7.0 % 03/02 8:34 PM CDT [facility] Not Available Not Available 01/12/2025 10:18:54 03/02/20 24 03/02/2024 CBC W Auto Diffe renti al panel - Blood basophils/10 0 leukocytes in blood by automated count 0.2 % low: 0%high : 1.6% Basop hil % 0.2 0.0 - 1.6 % 03/02 8:34 PM CDT [facility] Not Available Not Available 01/12/2025 10:18:54 03/02/20 24 03/02/2024 CBC W Auto Diffe renti al panel - Blood immature granulocytes /100 leukocytes in blood by automated count 0.3 % low: 0%high : 1% Immat ure Granu locyt es % 0.3 0.0 - 1.0 % 03/02 8:34 PM CDT [facility] Not Available Not Available 01/12/2025 10:18:54 03/02/20 24 03/02/2024 CBC W Auto Diffe renti al panel - Blood neutrophils [#/volume] in blood by automated count 5.89 text: 1.60 - 7.50 x10e9/ L Neutr ophil Absol [place] 5.89 1.60 - 7.50 x10E9 /L 03/02 8:34 PM CDT [facility] Not Available Not Available 01/12/2025 10:18:54 03/02/20 24 03/02/2024 CBC W Auto Diffe renti al panel - Blood lymphocytes [#/volume] in blood by automated count 1.71 text: 1.00 - 4.40 x10e9/ L Lymph ocyte Absol [place] 1.71 1.00 - 4.40 x10E9 /L 03/02 8:34 PM CDT [facility] Not Available Not Available 01/12/2025 10:18:54 03/02/20 24 03/02/2024 CBC W Auto Diffe renti al panel - Blood monocytes [#/volume] in blood by automated count 0.74 text: 0.15 - 1.00 x10e9/ L Monoc yte Absol [place] 0.74 0.15 - 1.00 x10E9 /L 03/02 8:34 PM CDT [facility] Not Available Not Available 01/12/2025 10:18:54 03/02/20 24 03/02/2024 CBC W Auto Diffe renti al panel - Blood eosinophils [#/volume] in blood 0.43 text: 0.00 - 0.60 x10e9/ L Eosin ophil Absol [place] 0.43 0.00 - 0.60 x10E9 /L 03/02 8:34 PM CDT [facility] Not Available Not Available 01/12/2025 10:18:54 03/02/20 24 03/02/2024 CBC W Auto Diffe renti al panel - Blood basophils [#/volume] in blood by automated count 0.02 text: 0.00 - 0.13 x10e9/ L Basop hil Absol [place] 0.02 0.00 - 0.13 x10E9 /L 03/02 8:34 PM CDT [facility] Not Available Not Available 01/12/2025 10:18:54 03/02/20 24 03/02/2024 CBC W Auto Diffe renti al panel - Blood interpretati on and review of laboratory results Abnorm al Not Available Not Available 10:18:54 03/02/20 24 03/02/2024 Compr ehens citlalli metab olic 1999 panel - Serum or Plasm a glucose [mass/volume ] in serum or plasma 67 mg/dL low: 70mg/d Lhigh: 105mg/ dL low Gluco se 67 (L) 70 - 105 mg/dL 03/02 8:53 PM CDT [facility] Not Available Not Available 01/12/2025 10:18:54 03/02/20 24 03/02/2024 Compr ehens citlalli metab olic 2000 panel - Serum or Plasm a sodium [moles/volum e] in serum or plasma 137 mmol/ L low: 136mmo l/Lhig h: 145mmo l/L Sod[place] m 137 136 - 145 mmol/ L 03/02 8:53 PM CDT [facility] Not Available Not Available 01/12/2025 10:18:54 03/02/20 24 03/02/2024 Compr ehens citlalli metab olic 1999 panel - Serum or Plasm a potassium [moles/volum e] in serum or plasma 3.3 mmol/ L low: 3.5mmo l/Lhig h: 5.1mmo l/L low Potas sium 3.3 (L) 3.5 - 5.1 mmol/ L 03/02 8:53 PM CDT [facility] Not Available Not Available 01/12/2025 10:18:54 03/02/20 24 03/02/2024 Compr YOOSEens citlalli metab olic 1999 panel - Serum or Plasm a chloride [moles/volum e] in serum or plasma 108 mmol/ L low: 98mmol /Lhigh : 107mmo l/L high Chlor [place] 108 (H) 98 - 107 mmol/ L 03/02 8:53 PM CDT [facility] Not Available Not Available 01/12/2025 10:18:54 03/02/20 24 03/02/2024 Compr YOOSEens citlalli metab olic 1999 panel - Serum or Plasm a carbon dioxide, total [moles/volum e] in serum or plasma 20 mmol/ L low: 22mmol /Lhigh : 29mmol /L low CO2 20 (L) 22 - 29 mmol/ L 03/02 8:53 PM CDT [facility] Not Available Not Available 01/12/2025 10:18:54 03/02/20 24 03/02/2024 Compr YOOSEens citlalli metab olic 1999 panel - Serum or Plasm a calcium [mass/volume ] in serum or plasma 8.4 mg/dL low: 8.4mg/ dLhigh : 10.4mg /dL Calci um 8.4 8.4 - 10.4 mg/dL 03/02 8:53 PM CDT [facility] Not Available Not Available 01/12/2025 10:18:54 03/02/20 24 03/02/2024 Compr ehens citlalli metab olic 1999 panel - Serum or Plasm a anion gap in blood 9 mmol/ L low: 6mmol/ Lhigh: 16mmol /L Anion Gap 9 6 - 16 mmol/ L 03/02 8:53 PM CDT [facility] Not Available Not Available 01/12/2025 10:18:54 03/02/20 24 03/02/2024 Compr ens citlalli metab [facility] 1999 panel - Serum or Plasm a urea nitrogen [mass/volume ] in serum or plasma 10 mg/dL low: 5.3mg/ dLhigh : 18.7mg /dL BUN 10 5.3 - 18.7 mg/dL 03/02 8:53 PM CDT [facility] Not Available Not Available 01/12/2025 10:18:54 03/02/20 24 03/02/2024 Compr ens citlalli metab [facility] 1999 panel - Serum or Plasm a creatinine [mass/volume ] in serum or plasma 0.57 mg/dL low: 0.57mg /dLhig h: 1.11mg /dL Creat inine 0.57 0.57 - 1.11 mg/dL 03/02 8:53 PM CDT [facility] Not Available Not Available 01/12/2025 10:18:54 03/02/20 24 03/02/2024 Compr YOOSEens citlalli metab ic 1999 panel - Serum or Plasm a alkaline phosphatase [enzymatic activity/vol ume] in serum or plasma 45 U/L low: 40U/Lh igh: 150U/L Alkal ine Phosp hatas e 45 40 - 150 U/L 03/02 8:53 PM CDT [facility] Not Available Not Available 01/12/2025 10:18:54 03/02/20 24 03/02/2024 Compr YOOSEens citlalli metab olic 1999 panel - Serum or Plasm a alanine aminotransfe rase [enzymatic activity/vol ume] in serum or plasma 10 U/L low: 0U/Lhi gh: 55U/L ALT 10 0 - 55 U/L 03/02 8:53 PM CDT [facility] Not Available Not Available 01/12/2025 10:18:54 03/02/20 24 03/02/2024 Compr [employer] citlalli [employer] olic 1999 panel - Serum or Plasm a aspartate aminotransfe rase [enzymatic activity/vol ume] in serum or plasma 13 U/L low: 5U/Lhi gh: 34U/L AST 13 5 - 34 U/L 03/02 8:53 PM CDT [facility] Not Available Not Available 01/12/2025 10:18:54 03/02/20 24 03/02/2024 Compr YOOSEens citlalli [employer] olic 1999 panel - Serum or Plasm a protein [mass/volume ] in serum or plasma 6 text: 6.4 - 8.3 gm/dL low Prote in Total 6.0 (L) 6.4 - 8.3 gm/dL 03/02 8:53 PM CDT [facility] Not Available Not Available 01/12/2025 10:18:54 03/02/20 24 03/02/2024 Compr [employer] citlalli [employer] olic 1999 panel - Serum or Plasm a albumin [mass/volume ] in serum or plasma 3 text: 3.4 - 5.0 gm/dL low Album in 3.0 (L) 3.4 - 5.0 gm/dL 03/02 8:53 PM CDT [facility] Not Available Not Available 01/12/2025 10:18:54 03/02/20 24 03/02/2024 Compr [employer] citlalli [employer] 1999 panel - Serum or Plasm a bilirubin.to radha [mass/volume ] in serum or plasma 0.1 mg/dL low: 0.2mg/ dLhigh : 1.2mg/ dL low Bilir ubin Total 0.1 (L) 0.2 - 1.2 mg/dL 03/02 8:53 PM CDT [facility] Not Available Not Available 01/12/2025 10:18:54 03/02/20 24 03/02/2024 Compr [employer] citlalli [employer] olic 2000 panel - Serum or Plasm a glomerular filtration rate/1.73 sq M.predicted [volume rate/area] in serum, plasma or blood by creatinine-b ased formula (CKD-epi) text: >=90 mL/min /1.73 m2 eGFR by CKD-E PI >90 >=90 mL/mi n/1.7 3 m2 03/02 8:53 PM CDT [facility] Not Available Not Available 01/12/2025 10:18:54 03/02/20 24 03/02/2024 Compr ehens citlalli metab olic 2000 panel - Serum or Plasm a interpretati on and review of laboratory results Abnorm al Not Available Not Available 10:18:54 12/14/19 25 12/14/2024 COMPR EHENS CITLALLI METAB OLIC PANEL sodium 140 mmol/ L 134-14 4 normal Not Available [facility] (Lab) [address] [place], [address], 12/14/2024 20:36:55 12/14/19 25 12/14/2024 COMPR EHENS CITLALLI METAB OLIC PANEL potassium 3.5 mmol/ L 3.5-5. 2 normal Not Available [facility] (Lab) [address] [place], [address], 12/14/2024 20:36:55 12/14/19 25 12/14/2024 COMPR EHENS CITLALLI METAB OLIC PANEL chloride 104 mmol/ L 96-106 normal Not Available [facility] (Lab) [address] [place], [address], 12/14/2024 20:36:55 12/14/19 25 12/14/2024 COMPR EHENS CITLALLI METAB OLIC PANEL carbon dioxide 24 mmol/ L 20-29 normal Not Available [facility] (Lab) [address] [place], [address], 12/14/2024 20:36:55 12/14/19 25 12/14/2024 COMPR EHENS CITLALLI METAB OLIC PANEL anion gap 15.0 mmol/ L Not Available [facility] (Lab) [address] [place], [address], 12/14/2024 20:36:55 12/14/19 25 12/14/2024 COMPR EHENS CITLALLI METAB OLIC PANEL blood urea nitrogen 16 mg/dL 6-20 normal Not Available [facility] ([facility] [address] [place], [address], 12/14/2024 20:36:55 12/14/19 25 12/14/2024 COMPR EHENS CITLALLI METAB OLIC PANEL creatinine 0.83 mg/dL 0.76-1 .27 normal Not Available [facility] (Lab) [address], [place], [address], 12/14/2024 20:36:55 12/14/19 25 12/14/2024 COMPR EHENS CITLALLI METAB OLIC PANEL glomerular filtration rate 98 mL/mi n/1 Not Available [facility] (Lab) [address], [place], [address], 12/14/2024 20:36:55 12/14/19 25 12/14/2024 COMPR EHENS CITLALLI METAB OLIC PANEL BUN creatinine ratio 19 9-[address] [facility] (Lab) [address], [place], [address], 12/14/2024 20:36:55 12/14/19 25 12/14/2024 COMPR EHENS CITLALLI METAB OLIC PANEL glucose 83 mg/dL 70-99 normal Not Available [facility] (Lab) [address], [place], [address], 12/14/2024 20:36:55 12/14/19 25 12/14/2024 COMPR EHENS CITLALLI METAB OLIC PANEL osmolality calculated 280 275-29 5 normal Not Available [facility] (Lab) [address], [place], [address], 12/14/2024 20:36:55 12/14/19 25 12/14/2024 COMPR EHENS CITLALLI METAB OLIC PANEL calcium 9.1 mg/dL 8.7-10 .2 normal Not Available [facility] (Lab) [address] [place], [address], 12/14/2024 20:36:55 12/14/19 25 12/14/2024 COMPR EHENS CITLALLI METAB OLIC PANEL bilirubin total 0.3 mg/dL 0.0-1. 2 normal Not Available [facility] (Lab) [address] [place], [address], 12/14/2024 20:36:55 12/14/19 25 12/14/2024 COMPR EHENS CITLALLI METAB OLIC PANEL aspartate amino transferase 26 IU/L 0-[address] [facility] (Lab) [address] [place], [address], 12/14/2024 20:36:55 12/14/19 25 12/14/2024 COMPR EHENS CITLALLI METAB OLIC PANEL alanine aminotransfe rase 22 IU/L 0-32 normal Not Available [facility] (Lab) [address] [place], [address], 12/14/2024 20:36:55 12/14/19 25 12/14/2024 COMPR EHENS CITLALLI METAB OLIC PANEL total protein 7.0 g/dL 6.0-8. 5 normal Not Available [facility] (Lab) [address], [place], [address], 12/14/2024 20:36:55 12/14/19 25 12/14/2024 COMPR EHENS CITLALLI METAB OLIC PANEL albumin level 4.7 g/dL 4.0-5. 0 normal Not Available [facility] (Lab) [address] [place], [address], 12/14/2024 20:36:55 12/14/19 25 12/14/2024 COMPR EHENS CITLALLI METAB OLIC PANEL globulin 2.3 g/dL 1.5-4. 5 normal Not Available [facility] (Lab) [address] [place], [address], 12/14/2024 20:36:55 12/14/19 25 12/14/2024 COMPR EHENS CITLALLI METAB OLIC PANEL albumin globulin ratio 2.0 1.2-2. 2 normal Not Available [facility] (Lab) [address] [place], [address], 12/14/2024 20:36:55 12/14/19 25 12/14/2024 COMPR EHENS CITLALLI METAB OLIC PANEL alkaline phosphatase 51 IU/L 44-121 normal Not Available [facility] ([facility] [address], [place], [address], 12/14/2024 20:36:55 12/14/19 25 12/14/2024 COMPL ETE BLOOD COUNT NO DIFF white blood count 4.2 x10e3 /uL 3.4-10 .8 normal Not Available [facility] (Lab) [address], [place], [address], 12/14/2024 20:57:38 12/14/19 25 12/14/2024 COMPL ETE BLOOD COUNT NO DIFF red blood count 3.62 x10e6 /uL 3.77-5 .28 low Not Available [facility] (Lab) [address], [place], [address], 12/14/2024 20:57:38 12/14/19 25 12/14/2024 COMPL ETE BLOOD COUNT NO DIFF hemoglobin 11.0 g/dL 11.1-1 5.9 low Not Available [facility] ([facility] [address] [place], [address], 12/14/2024 20:57:38 12/14/19 25 12/14/2024 COMPL ETE BLOOD COUNT NO DIFF hematocrit 33.3 % 34.0-4 6.6 low Not Available [facility] (Lab) [address] [place], [address], 12/14/2024 20:57:38 12/14/19 25 12/14/2024 COMPL ETE BLOOD COUNT NO DIFF mean corpuscular volume 92 fL 79-97 normal Not Available [facility] (Lab) [address] [place], [address], 12/14/2024 20:57:38 12/14/19 25 12/14/2024 COMPL ETE BLOOD COUNT NO DIFF mean corpuscular hemoglobin 30.4 pg 26.6-3 3.0 normal Not Available [facility] (Lab) [address] [place], [address], 12/14/2024 20:57:38 12/14/19 25 12/14/2024 COMPL ETE BLOOD COUNT NO DIFF mean corpuscular HGB conc 33.0 g/dL 31.5-3 5.7 normal Not Available [facility] (Lab) [address] [place], [address], 12/14/2024 20:57:38 12/14/19 25 12/14/2024 COMPL ETE BLOOD COUNT NO DIFF red cell distribution width 16.2 % 11.5-1 4.5 high Not Available [facility] (Lab) [address] [facility], [place], [address], 12/14/2024 20:57:38 12/14/19 25 12/14/2024 COMPL ETE BLOOD COUNT NO DIFF platelet count 201 x10e3 /uL 150-45 0 normal Not Available [facility] (Lab) [address] [facility], [place], [address], 12/14/2024 20:57:38 12/14/19 25 12/14/2024 COMPL ETE BLOOD COUNT NO DIFF mean platelet volume 10.6 fL 8.9-12 .7 normal Not Available [facility] (Lab) [address] [place], [address], 12/14/2024 20:57:38 12/14/19 25 12/14/2024 COMPL ETE BLOOD COUNT NO DIFF nucleated red blood cells auto 0 % 0-0 normal Not Available [facility] (Lab) [address] [place], [address], 12/14/2024 20:57:38 Result Notes None recorded. Medical Equipment None Reported. Allergies Allergen ID Allergen Name Allergen Category Reaction Reaction Severity Criticality Documentation Date Start Date Code Code System Note Provider Name and Address Organization Details Recorded Time 080206 wheat gluten extract food Not available Not available Not available 09/06/2022 [id number] 81 RxNorm Elida Rincon [place], [place] - [place] 2 10:23:52 No known drug allergies Medications Name Sig Start Date Stop Date Status Note LastModified by Organization Details LastModified Time celecoxib 200 mg capsule TAKE 1 CAPSULE BY MOUTH EVERY 12 HOURS NEEDED. TAKE WITH FOOD. active Not Available Not Available No t Available cyclobenzap rine 10 mg tablet TAKE 1 TABLET BY MOUTH TWICE DAILY NEEDED FOR MUSCLE SPASMS OR PAIN. DO NOT DRIVE OR OPERATE HEAVY MACHINERY WHILE TAKING MEDICATIO N active Not Available Not Available No t Available methocarbam ol 500 mg tablet TAKE 1 TABLET BY MOUTH EVERY 8 HOURS active Not Available Not Available No t Available buspirone 5 mg tablet TK 1 T PO BID 09/06 completed Not Available Not Available Not Available hydrocodone 7.5 mg-ibuprofe n 200 mg tablet TAKE 1 TABLET BY MOUTH EVERY 8 HOURS NEEDED FOR PAIN CONTROL active Not Available Not Available No t Available nystatin 100,000 unit/mL oral suspension SHAKE LIQUID AND TAKE 5 ML BY MOUTH FOUR TIMES DAILY active Not Available Not Available No t Available labetalol 200 mg tablet active Not Available Not Available Not Available clindamycin HCl 300 mg capsule TAKE 1 CAPSULE BY MOUTH TWICE DAILY 05/27 completed Not Available Not Available Not Available fluconazole 150 mg tablet TAKE 1 TABLET BY MOUTH DAILY FOR FUNGAL INFECTION active Not Available Not Available No t Available fluconazole 200 mg tablet TAKE 1 TABLET BY MOUTH AT END OF ANTIBIOTI CS OR WHEN SYMPTOMS START AND 1 TABLET 72 HOURS LATER active Not Available Not Available No t Available metronidazo le 0.75 % (37.5 mg/5 gram) vaginal gel INSERT 1 APPLICATO RFUL VAGINALLY EVERY DAY AT BEDTIME FOR 5 DAYS active Not Available Not Available No t Available prednisone 20 mg tablet active Not Available Not Available Not Available miconazole nitrate 2 % vaginal cream FOLLOW PACKAGE DIRECTION S active Not Available Not Available No t Available clotrimazol e 1 % vaginal cream INSERT 1 APPLICATO RFUL VAGINALLY DAILY FOR 7 DAYS active Not Available Not Available No t Available metronidazo le 500 mg tablet 09/06 completed Not Available Not Available Not Available hydroxyzine HCl 50 mg tablet TAKE 1 TABLET BY MOUTH THREE TIMES DAILY NEEDED FOR BREAKTHRO UGH ANXIETY active Not Available Not Available No t Available nifedipine ER 30 mg tablet,exte nded release active Not Available Not Available Not Available amlodipine 5 mg tablet TAKE 1 TABLET BY MOUTH DAILY FOR HIGH BLOOD PRESSURE active Not Available Not Available No t Available omeprazole 40 mg capsule,del ayed release TAKE 1 CAPSULE BY MOUTH DAILY active Not Available Not Available No t Available tramadol 50 mg tablet TAKE 1 TABLET BY MOUTH EVERY 8 HOURS NEEDED FOR PAIN active Not Available Not Available No t Available acetaminoph en 500 mg tablet active Not Available Not Available Not Available famotidine 20 mg tablet TAKE 1 TABLET BY MOUTH TWICE DAILY active Not Available Not Available No t Available methocarbam ol 750 mg tablet active Not Available Not Available Not Available ciprofloxac in 0.3 % eye drops PLACE 1 TO 2 DROPS INTO RIGHT EYE FOUR TIMES DAILY FOR 5 DAYS active Not Available Not Available No t Available diazepam 2 mg tablet TAKE 1 TABLET BY MOUTH EVERY 8 HOURS NEEDED active Not Available Not Available No t Available pantoprazol e 40 mg tablet,kiya yed release TAKE 1 TABLET BY MOUTH EVERY DAY BEFORE A MEAL 12/14 completed Not Available Not Available Not Available oseltamivir 75 mg capsule active Not Available Not Available Not Available lidocaine 5 % topical patch PLACE 1 PATCH ONTO THE SKIN DAILY FOR 30 DAYS. REMOVE & DISCARD PATCH WITHIN 12 HOURS 09/06 completed Not Available Not Available Not Available ursodiol 300 mg capsule TAKE 1 CAPSULE BY MOUTH TWICE DAILY active Not Available Not Available No t Available docusate sodium 100 mg capsule Take up to 3 capsules daily as needed for constipat ion active Not Available Not Available No t Available sertraline 25 mg tablet TAKE 1 TABLET BY MOUTH DAILY FOR ANXIETY active Not Available Not Available No t Available aspirin 81 mg chewable tablet CHEW AND SWALLOW 2 TABLETS BY MOUTH EVERY DAY active Not Available Not Available No t Available montelukast 10 mg tablet TAKE 1 TABLET BY MOUTH EVERY DAY AT BEDTIME FOR ASTHMA active Not Available Not Available No t Available amoxicillin 400 mg/5 mL oral suspension TAKE 7 ML BY MOUTH TWICE A DAY FOR 10 DAYS (DISCARD REMAINDER ) 09/06 completed Not Available Not Available Not Available ibuprofen 600 mg tablet TAKE 1 TABLET (600 MG TOTAL) BY MOUTH EVERY 8 (EIGHT) HOURS NEEDED. active Not Available Not Available No t Available polyethylen e glycol 3350 17 gram/dose oral powder active Not Available Not Available Not Available methylpredn isolone 4 mg tablets in a dose pack FOLLOW PACKAGE DIRECTION S active Not Available Not Available No t Available ibuprofen 100 mg/5 mL oral suspension TAKE 30 ML (600 MG TOTAL) BY MOUTH EVERY 6 (SIX) HOURS NEEDED FOR PAIN OR FEVER. 09/06 completed Not Available Not Available Not Available albuterol sulfate HFA 90 mcg/actuati on aerosol inhaler INHALE 2 PUFFS BY MOUTH EVERY 6 HOURS NEEDED FOR WHEEZING active Not Available Not Available No t Available norethindro ne (contracept citlalli) 0.35 mg tablet TAKE 1 TABLET BY MOUTH DAILY AT SAME TIME EVERY DAY active Not Available Not Available No t Available celecoxib 100 mg capsule TAKE 1 CAPSULE BY MOUTH EVERY DAY FOR LEFT SHOULDER PAIN active Not Available Not Available No t Available ondansetron 4 mg disintegrat ing tablet DISSOLVE 1 TABLET ON THE TONGUE EVERY DAY FOR 7 DAYS active Not Available Not Available No t Available clotrimazol e 1 % topical cream APPLY GRAM TOPICALLY TO THE AFFECTED AREA THREE TIMES DAILY active Not Available Not Available No t Available sertraline 50 mg tablet TAKE 1 TABLET BY MOUTH DAILY active Not Available Not Available No t Available naproxen 500 mg tablet TAKE 1 TABLET BY MOUTH TWICE DAILY WITH FOOD active Not Available Not Available No t Available Symbicort 160 mcg-4.5 mcg/actuati on HFA aerosol inhaler INHALE 2 PUFFS BY MOUTH TWICE DAILY FOR ASTHMA active Not Available Not Available No t Available FeroSul 325 mg (65 mg iron) tablet active Not Available Not Available Not Available levonorgest rel 1.5 mg tablet active Not Available Not Available Not Available Vitamins Plus Low Iron 27 mg iron-1 mg tablet active Not Available Not Available Not Available Se- 19 29 mg iron-1 mg tablet TAKE 1 TABLET BY MOUTH EVERY DAY active Not Available Not Available No t Available Vitals Date Recorded Body height Respiratory rate Body mass index (BMI) Body weight Heart rate Oxygen saturation Oxygen saturation in Arterial blood by Pulse oximetry Body temperature Systolic And Diastolic Provider Name and Address Organization Details Last Updated DateTime 5 162.56 cm 18 /min 20.9 kg/m2 34273.4 7 g 65 /min 99 % 99 % 97.6 [degF] 159/97 mm[Hg] Akiko Tee [place] - [place] 5 11:00:03 Date Recorded Body height Body temperature Respiratory rate Body mass index (BMI) Body weight Heart rate Oxygen saturation Oxygen saturation in Arterial blood by Pulse oximetry Systolic And Diastolic Provider Name and Address Organization Details Last Updated DateTime 2 162.56 cm 97.2 [degF] 18 /min 17.8 kg/m2 44481.1 7 g 66 /min 100 % 100 % 107/65 mm[Hg] Elida Rincon [facility] 2 10:25:11 Social History Question Answer Notes LastModified by [employer] Details LastModified Time Tobacco Smoking Status Never Smoker Elida Rincon null, [facility] 09/06/2022 10:23:38 Do You Have An Advance Directive? No Information n ot available 09/06/2022 In The 14 Days Before Symptom Onset, Have You Had Close Contact With A Laboratory-confirm ed COVID-19 While That Case Was Ill? No Information n ot available 09/06/2022 In The 14 Days Before Symptom Onset, Have You Had Close Contact With A Person Who Is Under Investigation For COVID-19 While That Person Was Ill? No Information not available 09/06/2022 Have You Been To An Area Known To Be High Risk For COVID-19? No Information not available 09/06/2022 Do You Have A Medical Power Of Grape Pruner? No Information not available 09/06/2022 What Was The Date Of Your Most Recent Tobacco Screening? 12/14/2024 [email or web address] Information not available 12/14/2024 Sex: Unknown Functional Status None recorded. Mental Status None recorded. Family History Nothing Reported. Medical History No medical history recorded. Gynecological HistoryNo gynecological history recorded. Obstetrics History GPAL:G 0 P 0 0 0 0 Past Encounters Encounter ID Performer Location Encounter Start Date Encounter Closed Date Diagnosis/Indication Diagnosis SNOMED-CT Code Diagnosis ICD10 Code Diagnosis Note [id number] Maribell Fox DO [facility] [address] [place] [address] 09/06/2022 10:14:36 09/10/2022 10:00:23 Gastroesophageal reflux disease without esophagitis 554986314 K21.9 Celiac disease 306961345 K90.0 remain on gluten free diet Abnormal weight loss 267 007968 R63.4 Constipation 85968206 K5 9.00 [id number] [facility] [address] [place] [address] 12/14/2024 10:37:22 12/14/2024 12:19:18 Nausea and vomiting 17599294 R11.2 Zofran PRN until EGD Esophageal dysphagia 408 44526 R13.19 liquids > solids. Proceed with EGD for further eval and dilation for probable stricture. Epigastric pain 10808226 R10.13 d/c omeprazole . Has had to self increase to TID for nausea and not getting any relief. Trial famotidine 20 mg BID, await EGD results Health Concerns Section Related Observation LastModified by Organization Detai ls LastModified Time None Recorded Concern Status LastModified by Organization Details LastModified Time None Recorded Advance Directives Directive N: Payers Insurance Date Sequence Insurance Name Policy Number Policy Cruz Covered Member ID Cruz Member ID Guarantor Name 08/18/2023 1 [facility] - DOS PRIOR TO 2021 (MEDICAID REPLACEMENT - HMO) Irina Cuba [id number] Irina Cuba 03/04/2018 1 [facility] (MEDICAID HMO) [id number] Irina Cuba [id number] Irina Cuba 11/26/2019 1 [place] [employer] [place] [employer] Irina Cuba [id number] Irina Cuba Notes Date Note Type Note Provider Name and Address Organization Details Recorded Time 09/06/2022 text/html Patient presents today c/o nausea, GERD, constipation, and weight loss. Patient was seen by GI at outside facility and was told she had celiac's disease. Last EGD June 2021. She has been on a gluten free diet for 1 year and noticed improvement in symptoms. Today c/o constipation with BM every 2-3 days. Thinks may be due to her diet. When she is constipated she feels anal contractions. Has anorectal pain with passing gas. She has tried tablets for lactose intolerance, but those made her nausea. Has not tried stool softeners, enemas, laxatives, etc. She is nauseous every day. Has tried a medication for GERD in the past, but the med was not gluten free and she was sick to her stomach. Patient states she eats and then is immediately hungry. She has been working with an outside provider regarding concern over blood sugar, but is unsatisfied with the providers recommendation to just drink orange juice or eat candy wheh her sugar is low. She is concerned about weight loss and never feeling full. States she eats and immediately is hungry again. Yesterday tracked blood sugars and reports a reading of 140 before eating, 20 minutes later after eating 102, then an additional 30 minutes later 82. Baseline weight 115, today 103. WAYNE MIRANDA [address], [place], [address], [facility] - [facility] 09/06/2022 11:09:42 12/14/2024 text/html Patient presents today for follow up. Last seen 2021. Has been taking omeprazole 40 mg without relief. Patient self increased dose to TID recently to try to get relief from acid and constant nausea. Nausea all day, everyday. Was hopeful when she went gluten free nausea would improve and it hasn't. States she feels liquids, especially water, and occasional solids feel stuck in distal esophagus. Water increases nausea and will vomit back up. Previous EGD 2020 at [facility] WAYNE MIRANDA [address], [place], [address], [place] - [facility] 12/14/2024 11:21:20 OBGyn Episode No OBEpisode recorded.
--- OUTSIDE RECORDS SUMMARY | 2025-05-31 06:45 | XMS_ITS | Data Portability ---
Author Organization [facility], Main Office Address [address] [place] [address] Assessment No assessment recorded. Plan of Treatment Reminders Order Date Submit Date Provider Last Modified By Organization Details Last Modified Time Details Appointments None recorded. Lab pancreatic elastase, stool 2022 023 [facility], [address], [place], [address], 3 17:01:54 fecal fat, qualitative , stool 2022 023 [facility], [address], [place], [address], 3 17:01:54 food allergen panel, serum 2022 023 [facility], [address], [place], [address], 3 17:01:55 Referral None recorded. Procedures None recorded. Surgeries None recorded. Imaging NM, thyroid scan, w/ uptake 2022 023 [facility] (Imaging), [address], [place], [address], 17:06:57 Medication Orders None recorded. Patient TargetsNo targets recorded. Patient InstructionsNo instructions recorded. Reason for Referral None Reported. Results Created Date Observation Date Name Description Value Unit Range Abnormal Flag Note LastModifiedBy Organization Detail LastModifiedTime 10/24/20 22 10/31/2022 HEMOG LOBIN A1C hemoglobin A1C 5.0 %_of_ total _HGB <5.7 normal For the purpo se of miguel ruiz for the prese nce of diabe madeleine: <5.7% Consi stent with the absen ce of diabe madeliene 5.7-6 .4% Consi stent with incre ased risk for diabe madeleine (pred iabet es) > or =6.5% Consi stent with diabe madeleine This assay resul t is consi stent with a decre ased risk of diabe madeleine. Curre ntly, no conse nsus exist s dejah michel use of hemog lobin A1c for diagn osis of diabe madeleine in child abner. Accor ding to Ameri can Diabe madeleine Assoc iatio n (ADA) guide lines , hemog lobin A1c <7.0% repre sents optim al contr ol in non-p regna nt diabe tic patie nts. Diffe rent metri cs may apply to speci fic patie nt popul ation s. Stand ards of Medic al Care in Diabe madeleine(A DA). Not Available [facility] [address] [place], [address], 10/31/2022 19:38:00 10/24/20 22 10/31/2022 TSH+F REE T4 TSH 0.82 mIU/L normal Refer ence Range > or = 20 Years 0.40- 4.50 Pregn david Range s First trime ster 0.26- 2.66 Secon d trime ster 0.55- 2.73 Third trime ster 0.43- 2.91 Not Available [facility] [address] [place], [address], 10/31/2022 19:38:00 10/24/20 22 10/31/2022 TSH+F REE T4 T4, free 1.0 NG/dL 0.8-1. 8 normal Not Available [facility] [address] [place], [address], 10/31/2022 19:38:00 10/24/20 22 10/31/2022 T3, FREE T3, free 2.9 pg/mL 2.3-4. 2 normal Not Available [facility] [address] [address] [place], [address], 10/31/2022 19:37:59 10/24/20 22 10/31/2022 VITAM IN B12/F OLATE , SERUM PANEL vitamin B12 910 pg/mL 200-11 00 normal Not Available [address], [address], 10/31/2022 19:37:59 10/24/20 22 10/31/2022 VITAM IN B12/F OLATE , SERUM PANEL folate, serum 6.7 NG/mL normal Refer ence Range Low: <3.4 Borde rline : 3.4-5 .4 Lynn l: >5.4 Not Available [address] [address] [place], [address], 10/31/2022 19:37:59 10/24/20 22 10/31/2022 CORTI VIKAS, A.M. cortisol, A.M. 20.6 mcg/d L normal Refer ence Range 8 a.m. (7-9 a.m.) Speci men: 4.0-2 2.0 Not Available [address], [address], 10/31/2022 19:37:59 10/24/20 22 10/31/2022 INSUL IN insulin 3.4 uIU/m L normal Refer ence Range < or = 19.6 Risk: Optim al < or = 19.6 Moder ate NA High >19.6 Adult cardi ovasc ular event risk categ ory cut point s (opti mal, moder ate, high) are based on [facility] popul ation data from 11/05 11. This insul in assay shows stron g cross -reac tivit y for some insul in analo gs (lisp ro, aspar t, and glarg ine) and much lower cross -reac tivit y with other s (dete john, gluli sine) . Not Available [facility] [address], [address], 10/31/2022 19:37:58 10/24/20 22 10/31/2022 C-PEP TIDE C-peptide 1.33 NG/mL 0.80-3 .85 normal Not Available [address], [address], 10/31/2022 19:37:58 10/24/20 22 10/31/2022 THYRO ID PEROX IDASE ANTIB ODIES thyroid peroxidase antibodies 1 IU/mL <9 normal Not Available [address], [address], 10/31/2022 19:37:57 10/24/20 22 10/31/2022 IA-2 ANTIB NIURKA ia-2 antibody <5.4 U/mL <5.4 This test was perfo rmed using the IA-2 Antib niurka SHIVA metho d which is stand sandra padilla st the WHO Refer ence Reage nt 97/55 0. The refer ence range repor jaswant was estab lishe d speci fical ly for this test metho d. Not Available [address], [address], 10/31/2022 19:37:57 10/24/20 22 10/31/2022 CBC (INCL UDES DIFF/ PLT) white blood cell count 4.9 thous and/u L 3.8-10 .8 normal Not Available [address], [address], 10/31/2022 19:37:56 10/24/20 22 10/31/2022 CBC (INCL UDES DIFF/ PLT) red blood cell count 3.90 aristides on/uL 3.80-5 .10 normal Not Available [address], [address], 10/31/2022 19:37:56 10/24/20 22 10/31/2022 CBC (INCL UDES DIFF/ PLT) hemoglobin 13.0 g/dL 11.7-1 5.5 normal Not Available [address], [address], 10/31/2022 19:37:56 10/24/20 22 10/31/2022 CBC (INCL UDES DIFF/ PLT) hematocrit 37.9 % 35.0-4 5.0 normal Not Available [address], [address], 10/31/2022 19:37:56 10/24/20 22 10/31/2022 CBC (INCL UDES DIFF/ PLT) MCV 97.2 fL 80.0-1 00.0 normal Not Available [address], [address], 10/31/2022 19:37:56 10/24/20 22 10/31/2022 CBC (INCL UDES DIFF/ PLT) MCH 33.3 pg 27.0-3 3.0 high Not Available [address], [address], 10/31/2022 19:37:56 10/24/20 22 10/31/2022 CBC (INCL UDES DIFF/ PLT) MCHC 34.3 g/dL 32.0-3 6.0 normal Not Available [address], [address], 10/31/2022 19:37:56 10/24/20 22 10/31/2022 CBC (INCL UDES DIFF/ PLT) RDW 12.0 % 11.0-1 5.0 normal Not Available [address], [address], 10/31/2022 19:37:56 10/24/20 22 10/31/2022 CBC (INCL UDES DIFF/ PLT) platelet count 274 thous and/u L 140-40 0 normal Not Available [address] [place], [address], 10/31/2022 19:37:56 10/24/20 22 10/31/2022 CBC (INCL UDES DIFF/ PLT) MPV 10.8 fL 7.5-12 .5 normal Not Available [address], [address], 10/31/2022 19:37:56 10/24/20 22 10/31/2022 CBC (INCL UDES DIFF/ PLT) absolute neutrophils 2808 cells /uL 1500-7 800 normal Not Available [address], [address], 10/31/2022 19:37:56 10/24/20 22 10/31/2022 CBC (INCL UDES DIFF/ PLT) absolute lymphocytes 1186 cells /uL 850-39 00 normal Not Available [address], [address], 10/31/2022 19:37:56 10/24/20 22 10/31/2022 CBC (INCL UDES DIFF/ PLT) absolute monocytes 500 cells /uL 200-95 0 normal Not Available [address], [address], 10/31/2022 19:37:56 10/24/20 22 10/31/2022 CBC (INCL UDES DIFF/ PLT) absolute eosinophils 368 cells /uL 15-500 normal Not Available [address], [address], 10/31/2022 19:37:56 10/24/20 22 10/31/2022 CBC (INCL UDES DIFF/ PLT) absolute basophils 39 cells /uL 0-200 normal Not Available [address], [address], 10/31/2022 19:37:56 10/24/20 22 10/31/2022 CBC (INCL UDES DIFF/ PLT) neutrophils 57.3 % normal Not Available [facility] [address] [address] [place], [address], 10/31/2022 19:37:56 10/24/20 22 10/31/2022 CBC (INCL UDES DIFF/ PLT) lymphocytes 24.2 % normal Not Available [address] [place], [address], 10/31/2022 19:37:56 10/24/20 22 10/31/2022 CBC (INCL UDES DIFF/ PLT) monocytes 10.2 % normal Not Available [facility] [address], [address], 10/31/2022 19:37:56 10/24/20 22 10/31/2022 CBC (INCL UDES DIFF/ PLT) eosinophils 7.5 % normal Not Available [address], [address], 10/31/2022 19:37:56 10/24/20 22 10/31/2022 CBC (INCL UDES DIFF/ PLT) basophils 0.8 % normal Not Available [address], [address], 10/31/2022 19:37:56 10/24/20 22 10/31/2022 ALDOS RONAK E/KWAN SMA RENIN ACTIV ITY RATIO ,LC/M S/MS aldosterone, lc/MS/MS 3 NG/dL Adult Refer ence Range s for Aldos ronak e: Uprig ht 8:00- 10:00 am < or = 28 ng/dL Uprig ht 4:00- 6:00 pm < or = 21 ng/dL Supin e 8:00- 10:00 am 3-16 ng/dL This test was devel oped and its emmanuel tical perfo rmanc e susan cteri stics have been deter mined by [facility] Morales trancaitlin . It has not been clear ed or appro cristopher by FDA. This assay has been valid ated pursu ant to the CLIA regul ation s and is used for clini joby purpo ses. Not Available [facility] [address] [address] [place], [address], 10/31/2022 19:37:56 10/24/20 22 10/31/2022 ALDOS RONAK E/KWAN SMA RENIN ACTIV ITY RATIO ,LC/M S/MS plasma renin activity, lc/MS/MS 0.78 NG/mL /h 0.25-5 .82 Not Available [facility] [address] [place], [address], 10/31/2022 19:37:56 10/24/20 22 10/31/2022 ALDOS RONAK E/KWAN SMA RENIN ACTIV ITY RATIO ,LC/M S/MS margarito/pra ratio 3.8 ratio 0.9-28 .9 Not Available [facility] [address] [address] [place], [address], 10/31/2022 19:37:56 10/24/20 22 10/31/2022 TSI (THYR OID STIMU LATIN G IMMUN OGLOB ULIN) tsi <89 %_bas padma <140 Thyro id stimu latin g immun oglob ulins (TSI) can engag e the TSH medical records receptionist tors resul ting in hyper thyro idism in Grave s' disea se patie nts. TSI level s can be usefu l in monit oring the clini joby outco me of Grave s' disea se as well as asses sing the poten tial for hyper thyro idism from mater nal-f etal trans ceasar. TSI resul ts great er than or equal to (>=) 140% of the Refer ence Contr ol are consi dered posit citlalli. NOTE: A serum TSH level great er than 350 micro -Inte rnati onal Units /mL can inter fere with the TSI bioas say and poten tiall y give false posit citlalli resul ts. Patie nts who are pregn ant and are suspe cted of havin g hyper thyro idism shoul d have both TSI and human Chori onic Gonad otrop in (hCG) tests measu red. A serum hCG level great er than 40,62 5 mIU/m L can inter fere with the TSI bioas say and may give false negat citlalli resul ts. In these patie nts it is recom martha d that a secon d TSI be obtai enedelia when the hCG kris ntrat ion falls below 40,62 5 mIU/m L (usua lly after appro ximat brandon 20-we eks gesta tion) . The emmanuel tical perfo rmanc e ussan cteri stics of this assay have been deter mined by [facility] jason Bills . The modif icati ons have not been clear ed or appro cristopher by the FDA. This assay has been valid ated pursu ant to the CLIA regul ation s and is used for clini joby purpo ses. Not Available [facility] [address] [place], [address], 10/31/2022 19:37:56 10/24/20 22 10/31/2022 GLUTA HUONG ACID DECAR BOXYL ASE 65 AB glutamic acid decarboxylas e 65 Ab <5 IU/mL <5 This test was perfo rmed using the GAD65 SHIVA metho d, which is stand ardiz ed again st the Inter natio nal refer ence prepa ratio n 97/55 0. Not Available [facility] [address] [place], [address], 10/31/2022 19:37:55 10/24/20 22 10/31/2022 IODIN E, SERUM /PLAS MA iodine, serum/plasma 53 mcg/L 52-109 This test was devel oped and its emmanuel tical perfo rmanc e susan cteri stics have been deter mined by [employer]. It has not been clear ed or appro cristopher by the U.S. Food and Drug Admin istra tion. This assay has been valid ated pursu ant to the CLIA regul ation s and is used for clini joby purpo ses. Not Available [address], [address], 10/31/2022 19:37:55 10/24/20 22 10/31/2022 ACTH, PLASM A acth, plasma 18 pg/mL 6-50 Refer ence range appli es only to speci mens colle cted betwe en 7am-1 0am. Not Available [address], [address], 10/31/2022 19:37:54 10/24/20 22 10/31/2022 COMPR EHENS CITLALLI METAB OLIC PANEL glucose 81 mg/dL 65-99 normal Fasti ng refer ence inter digna Not Available [address], [address], 10/31/2022 19:37:54 10/24/20 22 10/31/2022 COMPR EHENS CITLALLI METAB OLIC PANEL urea nitrogen (BUN) 12 mg/dL 7-25 normal Not Available [address], [address], 10/31/2022 19:37:54 10/24/20 22 10/31/2022 COMPR EHENS CITLALLI METAB OLIC PANEL creatinine 0.70 mg/dL 0.50-0 .96 normal Not Available [address], [address], 10/31/2022 19:37:54 10/24/20 22 10/31/2022 COMPR EHENS CITLALLI METAB OLIC PANEL eGFR 121 mL/mi n/1.7 3m2 > or = 60 normal The eGFR is based on the CKD-E PI 2020 equat ion. To calcu late the new eGFR from a previ ous Creat inine or Cysta tin C resul t, go to https :[email or web address] [email or web address] leiva/piter nava s/ kdoqi /gfr% 5Fcal culat or Not Available [address] [place], [address], 10/31/2022 19:37:54 10/24/20 22 10/31/2022 COMPR EHENS CITLALLI METAB OLIC PANEL BUN/creatini ne ratio not applic able (calc ) 6-22 Not Available [address], [address], 10/31/2022 19:37:54 10/24/20 22 10/31/2022 COMPR EHENS CITLALLI METAB OLIC PANEL sodium 139 mmol/ L 135-14 6 normal Not Available [address], [address], 10/31/2022 19:37:54 10/24/20 22 10/31/2022 COMPR EHENS CITLALLI METAB OLIC PANEL potassium 4.1 mmol/ L 3.5-5. 3 normal Not Available [address], [address], 10/31/2022 19:37:54 10/24/20 22 10/31/2022 COMPR EHENS CITLALLI METAB OLIC PANEL chloride 104 mmol/ L 98-110 normal Not Available [address], [address], 10/31/2022 19:37:54 10/24/20 22 10/31/2022 COMPR EHENS CITLALLI METAB OLIC PANEL carbon dioxide 26 mmol/ L 20-32 normal Not Available [address], [address], 10/31/2022 19:37:54 10/24/20 22 10/31/2022 COMPR EHENS CITLALLI METAB OLIC PANEL calcium 9.5 mg/dL 8.6-10 .2 normal Not Available [address], [address], 10/31/2022 19:37:54 10/24/20 22 10/31/2022 COMPR EHENS CITLALLI METAB OLIC PANEL protein, total 6.9 g/dL 6.1-8. 1 normal Not Available [address], [address], 10/31/2022 19:37:54 10/24/20 22 10/31/2022 COMPR EHENS CITLALLI METAB OLIC PANEL albumin 4.3 g/dL 3.6-5. 1 normal Not Available [address], [address], 10/31/2022 19:37:54 10/24/20 22 10/31/2022 COMPR EHENS CITLALLI METAB OLIC PANEL globulin 2.6 g/dL_ (calc ) 1.9-3. 7 normal Not Available [address], [address], 10/31/2022 19:37:54 10/24/20 22 10/31/2022 COMPR EHENS CITLALLI METAB OLIC PANEL albumin/glob ulin ratio 1.7 (calc ) 1.0-2. 5 normal Not Available [address], [address], 10/31/2022 19:37:54 10/24/20 22 10/31/2022 COMPR EHENS CITLALLI METAB OLIC PANEL bilirubin, total 0.4 mg/dL 0.2-1. 2 normal Not Available [address], [address], 10/31/2022 19:37:54 10/24/20 22 10/31/2022 COMPR EHENS CITLALLI METAB OLIC PANEL alkaline phosphatase 83 U/L 31-125 normal Not Available [address], [address], 10/31/2022 19:37:54 10/24/20 22 10/31/2022 COMPR EHENS CITLALLI METAB OLIC PANEL AST 22 U/L 10-30 normal Not Available [address] [place], [address], 10/31/2022 19:37:54 10/24/20 22 10/31/2022 COMPR EHENS CITLALLI METAB OLIC PANEL ALT 23 U/L 6-29 normal Not Available [address], [address], 10/31/2022 19:37:54 10/24/20 22 10/31/2022 IRON AND TOTAL IRON NOHEMI NG CAPAC ITY iron, total 65 mcg/d L 40-190 normal Not Available [address], [address], 10/31/2022 19:37:54 10/24/20 22 10/31/2022 IRON AND TOTAL IRON NOHEMI NG CAPAC ITY iron binding capacity 358 mcg/d L_(ca lc) 250-45 0 normal Not Available [address], [address], 10/31/2022 19:37:54 10/24/20 22 10/31/2022 IRON AND TOTAL IRON NOHEMI NG CAPAC ITY % saturation 18 %_(ca lc) 16-45 normal Not Available [address], [address], 10/31/2022 19:37:54 02/25/20 23 02/24/2023 GLUCO SE KYLEIGH ANCE 2HR dose 75 gms Not Available [facility] (Lab) [address] [place], [address], 02/24/2023 17:49:18 02/25/20 23 02/24/2023 GLUCO SE KYLEIGH ANCE 2HR fasting glucose 84 mg/dL 70-105 Not Available [facility] (Lab) [address] [place], [address], 02/24/2023 17:49:18 02/25/20 23 02/24/2023 GLUCO SE KYLEIGH ANCE 2HR 1 hour glucose 150 mg/dL [facility] PJ FOR THE DIAGN OSIS OF DIABE MADELEINE: FASTI NG GLUCO SE 2 HR POST- LOAD GLUCO SE DIAGN OSIS <100 <140 NORMO GLYCE ORLIN 110-1 25 140-1 99 IFG* OR IGT* >125 >199 DIABE MADELEINE *IFG- IMPAI RED FASTI NG GLUCO SE IGT-I MPAIR ED GLUCO SE KYLEIGH ANCE NOT E: A DIAGN OSIS OF DIABE MADELEINE MUST BE CONFI RMED ON A SUBSE QUENT DAY BY MEASU REMEN T OF A FASTI NG GLUCO SE, 2HR POST- LOAD GLUCO SE OR RANDO M GLUCO SE (IF SYMPT OMS ARE PRESE NT) (REFE RENCE : CELINA PAYNE [facility]) Not Available [facility] (Lab) [address] [place], [address], 02/24/2023 17:49:18 02/25/20 23 02/24/2023 GLUCO SE KYLEIGH ANCE 2HR 2 hour glucose 98 mg/dL -140 Not Available [facility] (Lab) [address] [place], [address], 02/24/2023 17:49:18 09/06/20 22 08/27/2022 XR, cervi joby spine , 4 or 5 view No observ ation record ed. [id number] Not Available 01/16/2023 01:49:49 09/06/20 22 08/27/2022 XR, shoul katelyn No observ ation record ed. [id number] Not Available 01/16/2023 01:49:49 12/23/19 23 12/23/2022 US, thyro id No observ ation record ed. [id number] [facility] Add On Lab Orders [address] [place], [address], 01/16/2023 01:49:49 12/23/19 23 12/23/2022 US, head + neck, soft tissu e [facility] [address] [place] [address] [facility] Access ion #: [id number] Sex: F : 1994 6 Locati on: RAD Attend ing Physic beverley: RAMIREZ BARNES Orderi ng Physic beverley: RAMIREZ BARNES Exam Date: 12/23/19 23 2:37 PM Exam Name: US NECK HEAD SOFT TISSUE Admitt ing Diagno sis(es ): RADIOL OGY REPORT - FINAL EXAM: US NECK HEAD SOFT TISSUE HISTOR Y: goiter COMPAR MER: None. TECHNI QUE: Ultras ound evalua tion of the thyroi d gland was perfor med. FINDIN GS: Right thyroi d lobe: The right lobe of the thyroi d gland measur es 5.3 x 2 x 1.4 cm. The thyroi d parenc hyma is homoge neous demons tratin g a 0.5 x 0.3 x 0.4 cm comple x nodule no abnorm al color Dopple r blood flow or suspic ious calcif icatio ns. Left thyroi d lobe: The left lobe of the thyroi d gland measur es 4.9 x 1.7 x Page [address] [place] [address] [facility] Name[facility] IRINA CUBA Access ion #: [id number] Sex: F : 1994 6 Exam Date: 12/23/19 23 2:37 PM Exam Name: US NECK HEAD SOFT TISSUE Admitt ing Diagno sis(es ): 1.5 cm cm. The thyroi d parenc hyma is homoge neous withou t solid nodule s or cystic lesion s. No abnorm al color Dopple r blood flow or suspic ious calcif icatio ns. Isthmu s: The thyroi d isthmu s measur es 0.29 mm in width. The thyroi d parenc hyma is homoge neous withou t solid nodule s or cystic lesion s. No abnorm al color Dopple r blood flow or suspic ious calcif icatio ns. IMPRES SHIVA: Ti-Rad s 3: Mildly suspic ious recomm end annual survei llance . Create d and electr onical ly signed by: Mathew schmitz MD Signed Date: 12/23/19 4:51 PM (CT) Dictat ed by: Mathew schmitz MD (CT) (CT) Page 2 of 2 [id number] [facility] (Imaging) [address] [place], [address], 01/16/2023 01:49:49 Result Notes None recorded. Problems Name Problem SNOMED Code Status Onset Date Resolution Date Notes Provider Name and Address Organization Details Recorded Time Gastroesophag eal reflux disease without esophagitis 004820665 Active 2021 Not Available [facility] 3 01:48:40 Celiac disease 183022848 Active Not Available [facility] 3 01:48:40 Dizziness 968376021 Active 2021 Not Available [facility] 3 01:48:40 Dizziness of unknown cause 824534101 Active 2021 Not Available [facility] 3 01:48:40 Specialized medical examination Active 2021 Not Available [facility] 3 01:48:40 Thyroid nodule 643992516 Active 2022 Ramirez Barnes MD [address], [address] , [facility] 3 16:58:52 Unintentional weight loss 233408994 Active 2022 Ramirez Barnes MD [address], [address] , [facility] 3 16:59:58 Problem Notes None recorded. Procedures Surgical History Date Name Laterality Status Provider Name and Address Organization Details Recorded Time other completed Not Available [facility] 12/2022 01:47:46 Imaging Results None recorded. Procedure Notes None recorded. Medical Equipment None Reported. Medications Name Sig Start Date Stop Date Status Note LastModified by Organization Details LastModified Time cyclobenzap rine 10 mg tablet TAKE 1 TABLET BY MOUTH EVERY 8 HOURS active Not Available Not Available No t Available fluconazole 100 mg tablet 02/25 completed Not Available Not Available Not Available methocarbam ol 500 mg tablet TAKE 1 TABLET BY MOUTH EVERY 8 HOURS active Not Available Not Available No t Available hydrocodone 7.5 mg-ibuprofe n 200 mg tablet TAKE 1 TABLET BY MOUTH EVERY 8 HOURS NEEDED FOR PAIN CONTROL 02/25 completed Not Available Not Available Not Available nystatin 100,000 unit/mL oral suspension SHAKE LIQUID AND TAKE 5 ML BY MOUTH FOUR TIMES DAILY 02/25 completed Not Available Not Available Not Available clindamycin HCl 300 mg capsule TAKE 1 CAPSULE BY MOUTH TWICE DAILY FOR 7 DAYS active Not Available Not Available No t Available fluconazole 150 mg tablet TAKE 1 TABLET BY MOUTH NOW AND 1 TABLET ON DAYS 2-5 active Not Available Not Available No t Available metronidazo le 0.75 % (37.5 mg/5 gram) vaginal gel INSERT 1 APPLICATO RFUL VAGINALLY EVERY DAY AT BEDTIME FOR 5 DAYS active Not Available Not Available No t Available metronidazo le 500 mg tablet active Not Available Not Available Not Available amlodipine 5 mg tablet Take 1 tablet every day by oral route. 02/25 completed Not Available Not Available Not Available omeprazole 40 mg capsule,del ayed release TAKE 1 CAPSULE BY MOUTH EVERY DAY active Not Available Not Available No t Available diazepam 2 mg tablet TAKE 1 TABLET BY MOUTH EVERY 8 HOURS NEEDED 02/25 completed Not Available Not Available Not Available pantoprazol e 40 mg tablet,kiya yed release TAKE 1 TABLET BY MOUTH EVERY DAY BEFORE A MEAL 02/25 completed Not Available Not Available Not Available lidocaine 5 % topical patch 07/25 completed Not Available Not Available Not Available docusate sodium 100 mg capsule TAKE 1 CAPSULE BY MOUTH EVERY DAY 02/25 completed Not Available Not Available Not Available montelukast 10 mg tablet TAKE 1 TABLET BY MOUTH EVERY DAY AT BEDTIME FOR ASTHMA 02/25 completed Not Available Not Available Not Available ibuprofen 600 mg tablet 12/12 completed Not Available Not Available Not Available methylpredn isolone 4 mg tablets in a dose pack FOLLOW PACKAGE DIRECTION S active Not Available Not Available No t Available albuterol sulfate HFA 90 mcg/actuati on [...] No t Available Vitals Date Recorded Body mass index (BMI) Body height Oxygen saturation Oxygen saturation in Arterial blood by Pulse oximetry Heart rate Respiratory rate Body temperature Body weight Provider Name and Address Organization Details Last Updated DateTime 2 17.9 kg/m2 162.56 cm 98 % 98 % 72 /min 12 /min 98.6 [degF] 24792.6 1 g Not Available [facility] 3 01:48:04 Date Recorded Body mass index (BMI) Body height Oxygen saturation Oxygen saturation in Arterial blood by Pulse oximetry Heart rate Body temperature Body weight Systolic And Diastolic Provider Name and Address Organization Details Last Updated DateTime 2 19.2 kg/m2 162.56 cm 98 % 98 % 79 /min 97.2 [degF] 48313.3 5 g 104/72 mm[Hg] Not Available [facility] 3 01:48:04 Date Recorded Body height Body mass index (BMI) Body weight Body temperature Respiratory rate Heart rate Systolic And Diastolic Provider Name and Address Organization Details Last Updated DateTime 3 162.56 cm 18.6 kg/m2 67242.6 9 g 97.6 [degF] 18 /min 62 /min 125/79 mm[Hg] ALLYN Chong [place] [facility] 3 16:45:52 Date Recorded Body mass index (BMI) Body height Heart rate Body temperature Body weight Systolic And Diastolic Provider Name and Address Organization Details Last Updated DateTime 2 17.9 kg/m2 162.56 cm 90 /min 97.3 [degF] 03225.0 4 g 112/80 mm[Hg] Not Available [facility] 3 01:48:04 Social History Question Answer Notes LastModified by Organizat ion Details LastModified Time Tobacco Smoking Status Never Smoker Azalea Aiken RN [facility], [place] - [place] [employer] [facility] 02/25/2023 16:31:28 What Is Your Level Of Caffeine Consumption? None [id number] Information not available 01/16/2023 In The 14 Days Before Symptom Onset, Have You Had Close Contact With A Laboratory-confirm ed COVID-19 While That Case Was Ill? No Information n ot available 02/25/2023 In The 14 Days Before Symptom Onset, Have You Had Close Contact With A Person Who Is Under Investigation For COVID-19 While That Person Was Ill? No Information not available 02/25/2023 What Type Of Diet Are You Following? REGULAR [id number] Information not available 01/16/2023 Have You Ever Been Counseled For Unhealthy Alcohol Use? No Information not available 02/25/2023 Do You Have Any Pets? No Information not available 02/25/2023 What Is Your Relationship Status? Single [id number] Information not available 01/16/2023 Do You Use Your Seat Belt Or Car Seat Routinely? Yes Information not available 02/25/2023 Have You Recently Traveled Abroad? No Information not available 02/25/2023 Do You Have Any Dietary Restrictions? No Information not available 02/25/2023 Sex: Female Functional Status Question Answer Note LastModified by Organizat ion Details LastModified Time Do you use any illicit or recreational drugs? No Information not available 02/25/2023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
--- OUTSIDE RECORDS SUMMARY | 2025-05-31 06:45 | XMS_ITS | Encounter Summary ---
Author Organization [facility] Care Team Providers Care Studio Technician Video Operator Name Role Phone Leigh Nagy MD Primary Care Provider Kamala Donis Primary Care Provider [phone] Davey Benton MD Unavailable [phone] No, Physician Primary Care Provider [phone] Fay Ayala NP Primary Care Provider [phone] Encounter Details Date Type Department Care Team (Latest Contact Info) Description 07/15/2017 Orders Only [facility]IN[facility] Provider, MD Rolando [address] [place] [address] Social History Tobacco Use Types Packs/Day Years Used Date Smoking Tobacco: Never Assessed Comments Unknown Sex and Gender Information Value Date Recorded Sex Assigned at Not on file Legal Sex Female 9:13 PM PROCESSING REP Gender Identity Not on file Sexual Orientation Not on file documented as of this encounter Plan of Treatment Not on file documented as of this encounter Procedures Procedure Name Priority Date/Time Associated Diagnosis Comments PROCEDURE - RESULT 07/15/2017 12 :00 AM CDT documented in this encounter Results * PROCEDURE - RESULT (07/15/2017 12:00 AM CDT) Narrative 07/15/2017 12:00 AM CDT Ordered by an unspecified provider. Historical Provider Final Res ult documented in this encounter Visit Diagnoses Not on filedocumented in this encounter Care Teams Studio Technician Video Operator Relationship Specialty Start Date End Date Leigh Nagy MD [address] [facility] [place] [address] PCP - General 01/01/19 08/23/20 Kamala Donis PA [address] [place] [address] PCP - General Family Medicine 08/24/20 05/21/21 No, Physician PCP - General 05/24/21 11/13/23 Fay Ayala NP [address] [place] [place] [address] PCP - General Family Medicine 11/14/23 Davey Benton MD [address] [place] [address] Consulting Physician Family Medicine 08/24/20 05/21/21 documented as of this encounter
--- OUTSIDE RECORDS SUMMARY | 2025-05-31 06:45 | XMS_ITS | Data Portability ---
Author Organization [facility], [facility] Address [address] [place] [address] Care Team Providers Care Joss House Keeper Name Role Phone [facility] Assessment Encounter Date Assessment Date Assessment LastModified by Organization Details LastModified Time 04/03/2023 04/03/2023 Declined STI screen. - Reviewed vulvar hygiene: avoid tight or moist clothing, soaps, Vagisil and other wipes, cotton underwear only and sleep without, unscented detergent - Start probiotic [email or web address] Not available 04/03/2023 15:05:22 Plan of Treatment Reminders Order Date Submit Date Provider Last Modified By Organization Details Last Modified Time Details Appointments None recorded. Lab test, urine 2023 024 [facility], [address] [place], [address], 4 12:22:26 bacterial vaginosis + vaginitis panel, vaginal 2022 023 [facility], [address] [place], [address], 3 09:27:26 biopsy, tissue - ecc 2022 023 [email or web address] [facility], [address] [facility], [place], [address], 3 15:14:00 biopsy, tissue - 11 o'clock 2022 023 SAÚL [facility], [address] [place], [address], 3 16:48:30 biopsy, tissue - 1 o'clock 2022 023 [email or web address] [facility], [address] [facility], [place], [address], 3 15:14:01 biopsy, tissue - 4 o'clock 2022 023 [email or web address] [facility], [address] [facility], [place], [address], 3 15:14:01 biopsy, tissue - 7 o'clock 2022 023 [email or web address] [facility], [address] [place], [address], 3 15:14:01 test, urine 2022 023 [email or web address] [facility], [address] [place], [address], 3 13:17:33 bacterial vaginosis + vaginitis panel, vaginal 2022 023 [facility] [employer] [place], [address] [place], [address], 3 15:55:07 pap, LB 2022 023 [facility], [address] [place], [address], 3 11:31:20 unlisted lab - Pap reflex hold 2022 023 [email or web address] [place], [address] [place], [address], 3 16:26:17 Referral None recorded. Procedures None recorded. Surgeries None recorded. Imaging US, transvagi nal 2023 024 [email or web address] [facility], [address] [place], [address], 4 12:16:41 US, pelvis 2021 022 laura [facility], [address] [place], [address], 2 20:04:30 Medication Orders Vitamins with Minerals 28 mg iron-800 mcg tablet 2023 024 [id number], [address], [place], [place], [id number], 4 17:14:32 clindamyc in HCl 300 mg capsule [address] [id number], [address], [place], [place], [id number], 3 13:28:14 fluconazo le 150 mg tablet [address] [id number], [address], [place], [place], [id number], 3 13:28:18 Patient TargetsNo targets recorded. Patient Instructions Encounter Date Encounter Id Patient Instructions Last Modified By Organization Details Last Modified Time 02/19/2023 [id number] learning about dietary guidelines Not available 02/19/2023 14:46:49 eating healthy foods: care instructions Not available 02/19/2023 14:46:49 bacterial vaginosis: care instructions Not available 02/19/2023 14:46:49 04/03/2023 [id number] vaginitis: care instructions [email or web address] Not available 04/03/2023 15:03:01 11/19/2023 [id number] gluten-free diet: care instructions Not available 11/25/2023 17:50:14 *SAB precautions: f/u immediately if 1) temp>101.0, 2) abdominal pain, 3) vaginal bleeding greater than 1 pad/hr for greater than 2 hours RTC in 3 to 4 weeks for your initial OB visit, sooner if problems, questions, or concerns. Not available 11/25/2023 17:40:08 Discussed common concerns during *nausea of - advised patient to keep cracker at the bedside to eat before getting out of bed in the morning, eat smaller more frequent meals during the day, and avoid mixing solids and liquids in the same meal. add protein snack at bedtime; Vit B6 & unisom as needed * vitamins and DHA *Avoidance of heavy exertion increase fluid intake rest - *Instructed that it is important for women to get the whooping cough vaccine in the third trimester of every ; *COVID vaccine - reviewed ACOG recommendations; Advised to avoid sick contacts, practice social distancing, good handwashing. If you develop respiratory symptoms, fever, cough, or shortness of breath you should contact healthcare provider immediately. *Flu vaccine as indicated *Toxoplasmosis precautions discussed *Physical/sexual activity discussed *Nutrition discussed * Environmental/wo rk hazards discussed *Tobacco and alcohol avoidance discussed Not available 11/25/2023 17:38:25 Reason for Referral None Reported. Results Created Date Observation Date Name Description Value Unit Range Abnormal Flag Note LastModifiedBy Organization Detail LastModifiedTime 02/20/2002/21/2023 VAGIN ITIS PLUS STD PANEL bacterial vaginosis BV POS negati ve abnormal Not [place], [address], 02/21/2023 15:55:07 02/20/20 23 02/21/2023 VAGIN ITIS PLUS STD PANEL adam species C. spp neg negati ve normal [place], [address], 02/21/2023 15:55:07 02/20/20 23 02/21/2023 VAGIN ITIS PLUS STD PANEL adam glabrata C. gla neg negati ve normal Not Available [address], [address], 02/21/2023 15:55:07 02/20/20 23 02/21/2023 VAGIN ITIS PLUS STD PANEL trichomonas vaginalis CV/TV TRICH neg negati ve normal Not Available [address], [address], 02/21/2023 15:55:07 02/20/20 23 02/21/2023 VAGIN ITIS PLUS STD PANEL chlamydia trachomatis CT neg negati ve normal This repor t is inten ded for us in clini joby monit oring and manag ement of patie nts. It is not inten ded for use in medic al-le gal appli catio n. Not Available [address], [address], 02/21/2023 15:55:07 02/20/20 23 02/21/2023 VAGIN ITIS PLUS STD PANEL neisseria gonorrhoeae GC neg negati ve normal This repor t is inten ded for us in clini joby monit oring and manag ement of patie nts. It is not inten ded for use in medic al-le gal appli catio n. Not Available [address], [address], 02/21/2023 15:55:07 02/20/20 23 02/28/2023 THINP REP TIS PAP clinical information: normal None given Not Available [facility] [address] [place], [address], 02/28/2023 11:31:20 02/20/20 23 02/28/2023 THINP REP TIS PAP LMP: normal None given Not Available [facility] [address] [address] [place], [address], 02/28/2023 11:31:20 02/20/20 23 02/28/2023 THINP REP TIS PAP prev. Pap: normal None given Not Available [address], [address], 02/28/2023 11:31:20 02/20/20 23 02/28/2023 THINP REP TIS PAP prev. BX: normal None given Not Available [address], [address], 02/28/2023 11:31:20 02/20/20 23 02/28/2023 THINP REP TIS PAP source: normal Cervi x Not Available [address] [place], [address], 02/28/2023 11:31:20 02/20/20 23 02/28/2023 THINP REP TIS PAP statement of adequacy: normal Satis facto ry for evalu ation . Endoc ervic al/tr ansfo rmati on zone compo nent prese nt. 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 To steven t in maint vinay flannery the highe st degre e of accur acy and corre latio n betwe en cytol ogic and histo logic findi ngs, pleas e forwa rd follo w-up data for subse quent biops ies perfo rmed by any other non-Q uest labor atory . Not Available [address] [address] [place], [address], 02/28/2023 11:31:20 02/20/20 23 02/28/2023 THINP REP TIS PAP cytotechnolo gist: normal MVB, CT( CP) CT Scree sara Locat ion: [address] [address] [place] [address] Not Available [address] [address] [place], [address], 02/28/2023 11:31:20 02/20/20 23 02/28/2023 THINP REP TIS PAP pathologist: normal Lynn bass M.D., Board Certi fied in Anato syd Patho logy and Cytop athol ogy. Phone : [phone] (elec troni c signa ture) Not Available [address] [address], [place], [address], 02/28/2023 11:31:20 02/20/20 23 02/28/2023 THINP REP TIS PAP comment EXPLA NATOR Y NOTE: The Pap is a scree sara test for cervi joby cance r. It is not a diagn ostic test and is subje ct to false negat divine and false posit divine resul ts. It is most relia ble when a satis facto ry sampl e, regul galen obtai enedelia, is submi tted with relev ant clini joby findi ngs and histo ry, and when the Pap resul t is evalu ated along with histo ronn and curre nt clini joby infor matio n. Not Available [facility] [address] [address] [place], [address], 02/28/2023 11:31:20 03/24/20 23 03/27/2023 TISSU E PATHO LOGY clinical information Abnor mal Papan icola ou smear Not Available [address] [address] [place], [address], 03/27/2023 16:48:29 03/24/20 23 03/27/2023 TISSU E PATHO LOGY pathologist Ann mahoney M.D., Board Certi fied in Anato syd Patho logy and Clini joby Patho logy [phone] (elec troni c signa ture) Not Available [facility] [address] [address] [place], [address], 03/27/2023 16:48:29 03/24/20 23 03/27/2023 TISSU E PATHO LOGY report notes The curre nt biops y findi ngs are less advan anel than would be antic ipate d based on the recen t cytol ogy smear (s). Previ ous biops y histo ry noted . Pleas e corre late and follo w clini marcelino . This test (p16) was perfo rmed using a kit that has not been clear ed or appro cristopher by the FDA. The emmanuel tical perfo rmanc e susan cteri stics of this test have been deter mined by [facility]er. Perfo rmanc e susan cteri stics refer to the emmanuel tical perfo rmanc e of the test. Not Available [facility] [place] [address] [address] [place], [address], 03/27/2023 16:48:29 03/24/20 23 03/27/2023 TISSU E PATHO LOGY A source Endoc ervix , curet tage Not Available [facility] [address] [address] [place], [address], 03/27/2023 16:48:29 03/24/20 23 03/27/2023 TISSU E PATHO LOGY A gross description Speci men is recei cristopher in forma kimberly, label ed with multi ple patie nt ident ifier s and consi sts of multi ple fragm ents of mucoi d mater ial aggre gatin g to 0.2 x 0.2 x 0.1 cm, irreg ular in shape and yello w-whi te in color . The speci men is entir brandon submi tted in one casse tte. Gross exam( s) perfo rmed at: [facility] [place] [address] [place] [address] [place], [place] [address] Labor atory Direc tor: KAYLEY Mahoney MD Not Available [facility] [address] [place], [address], 03/27/2023 16:48:29 03/24/20 23 03/27/2023 TISSU E PATHO LOGY A diagnosis Fragm ents of benig n endoc ervic al epith elium with mucus . Not Available [facility] [address] [place] [address] [place], [address], 03/27/2023 16:48:29 03/24/20 23 03/27/2023 TISSU E PATHO LOGY B source Cervi x, 11 o'ethel ck, biops y Not Available [facility] [address] [address] [place], [address], 03/27/2023 16:48:29 03/24/20 23 03/27/2023 TISSU E PATHO LOGY B gross description Speci men is recei cristopher in forma kimberly, label ed with multi ple patie nt ident ifier (s) and consi sts of 2 fragm ent(s ) of tissu e aggre gatin g to 1.0 x 0.3 x 0.2 cm, irreg ular in shape and yello w-whi te in color . The speci men is entir brandon submi tted in one casse tte. Not Available [facility] [address] [place] [address] [place], [address], 03/27/2023 16:48:29 03/24/20 23 03/27/2023 TISSU E PATHO LOGY B diagnosis Mild chron ic cervi citis . There is no evide nce of dyspl tita. Not Available [facility] [address] [address] [address] , [place], [address], 03/27/2023 16:48:29 03/24/20 23 03/27/2023 TISSU E PATHO LOGY C source Cervi x, 1 o'ethel ck, biops y Not Available [facility] [address] , [place], [address], 03/27/2023 16:48:29 03/24/20 23 03/27/2023 TISSU E PATHO LOGY C gross description Speci men is recei cristopher in forma kimberly, label ed with multi ple patie nt ident ifier s and consi sts of one fragm ent of tissu e measu ring 0.4 x 0.3 x 0.2 cm, irreg ular in shape and yello w-whi te in color . The speci men is entir brandon submi tted in one casse tte. Not Available [address] , [place], [address], 03/27/2023 16:48:29 03/24/20 23 03/27/2023 TISSU E PATHO LOGY C diagnosis Low-g rade squam ous intra epith elial lesio n (АЛЕКСАНДР 1). Not Available [address] , [place], [address], 03/27/2023 16:48:29 03/24/2003/27/2023 TISSU E PATHO LOGY C comment Low-g rade disea se partl y invol ves atypi joby squam ous metap lasia ; speci al stain ing (p16) suppo rts the diagn osis (all posit divine and requi red negat divine contr ols stain ed appro priat brandon). Not Available [facility] [address] [address] [place], [address], 03/27/2023 16:48:29 03/24/20 23 03/27/2023 TISSU E PATHO LOGY D source Cervi x, 4 o'ethel ck, biops y Not Available [facility] [address] [address] [place], [address], 03/27/2023 16:48:29 03/24/20 23 03/27/2023 TISSU E PATHO LOGY D gross description Speci men is recei cristopher in forma kimberly, label ed with multi ple patie nt ident ifier s and consi sts of one fragm ent of tissu e measu ring 0.3 x 0.2 x 0.2 cm, irreg ular in shape and yello w-whi te in color . The speci men is entir brandon submi tted in one casse tte. Not Available [facility] [address] [address] [address] , [place], [address], 03/27/2023 16:48:29 03/24/20 23 03/27/2023 TISSU E PATHO LOGY D diagnosis Low-g rade squam ous intra epith elial lesio n (АЛЕКСАНДР 1). Not Available [facility] [address] [address] [place], [address], 03/27/2023 16:48:29 03/24/20 23 03/27/2023 TISSU E PATHO LOGY D comment A small focus of low-g rade disea se is noted . Trans forma tion zone not ident ified . Not Available [facility] [place] [address] [place], [address], 03/27/2023 16:48:29 03/24/20 23 03/27/2023 TISSU E PATHO LOGY E source Cervi x, 7 o'ethel ck, biops y Not Available [facility] [place] [address] [place], [address], 03/27/2023 16:48:29 03/24/20 23 03/27/2023 TISSU E PATHO LOGY E gross description Speci men is recei cristopher in forma kimberly, label ed with multi ple patie nt ident ifier s and consi sts of one fragm ent of tissu e measu ring 0.3 x 0.3 x 0.2 cm, irreg ular in shape and yello w-whi te in color . The speci men is entir brandon submi tted in one casse tte. Not Available [facility] [address] [address] , [place], [address], 03/27/2023 16:48:29 03/24/20 23 03/27/2023 TISSU E PATHO LOGY E diagnosis Low-g rade squam ous intra epith elial lesio n (АЛЕКСАНДР 1). Not Available [facility] [address] [address] [address] , [place], [address], 03/27/2023 16:48:29 03/24/20 23 03/27/2023 TISSU E PATHO LOGY E comment Trans forma tion zone not ident ified . Not Available [facility] [address] [address] , [place], [address], 03/27/2023 16:48:29 03/24/20 23 03/24/2023 pregn david test, urine HCG negati ve Not Available [facility] [address] [place], [address], 03/24/2023 13:16:55 04/03/20 23 04/07/2023 VAGIN ITIS PANEL bacterial vaginosis BV POS negati ve abnormal Not Available [address], [address], 04/08/2023 09:27:26 04/03/20 23 04/07/2023 VAGIN ITIS PANEL adam species C. spp neg negati ve normal Not Available [address], [address], 04/08/2023 09:27:26 04/03/20 23 04/07/2023 VAGIN ITIS PANEL adam glabrata C. gla neg negati ve normal Not Available [address], [address], 04/08/2023 09:27:26 04/03/20 23 04/07/2023 VAGIN ITIS PANEL trichomonas vaginalis CV/TV TRICH neg negati ve normal Not Available [address], [address], 04/08/2023 09:27:26 11/19/19 24 11/19/2023 pregn david test, urine HCG positi ve Not Available [address], [address], 11/18/2023 10:35:24 07/09/20 22 US, pelvi s No observ ation record ed. [address], [address], 07/09/2022 11:43:39 07/12/20 22 07/09/2022 US, pelvi s No observ ation record ed. [email or web address], [place], [id number], 07/14/2022 13:52:18 11/21/19 24 11/19/2023 US, trans vagin al No observ ation record ed. [email or web address] [address], [place], [id number], 11/25/2023 13:45:16 Result Notes None recorded. Problems Name Problem SNOMED Code Status Onset Date Resolution Date Notes Provider Name and Address Organization Details Recorded Time Pregnanc y, childbir th and puerperi um finding Completed 201702/19/2023 Encounte r for supervis ion of normal first pregnanc y, first trimeste r; Progress : Stable Added By: Nancy Narvaez Add to Current Problems : YES ProblemS tatus: Current Ayla Britsch null, [place] [facility] 3 02:09:45 Vaginola bial hernia Completed 201902/19/2023 Other specifie d noninfla mmatory disorder s of vagina; Progress : Stable Added By: Cornelia Brock Add to Current Problems : YES ProblemS tatus: Current Ayla Britsch null, [place] [facility] 3 02:09:42 Syphilis test finding [id number] Completed 201902/19/2023 Encounte r for screenin g for infectio ns with a predomin antly sexual mode of transmis asad; Progress : Stable Added By: Luther Lewis Add to Current Problems : YES ProblemS tatus: Current Ayla Britsch null, [place] [facility] 3 02:09:47 Gestatio n period, 9 weeks 285183 Completed 201702/19/2023 9 weeks gestatio n of pregnanc y; Progress : Stable Added By: Nancy Narvaez Add to Current Problems : YES ProblemS tatus: Current Ayla Britsch null, [place] [facility] 3 02:09:59 Atypical squamous cells of undeterm ined signific ance on cervical Papanico laou smear [id number] Completed 201902/19/2023 Atypical squamous cells of undeterm ined signific ance on cytologi c smear of cervix (ASC-US) ; Progress : Stable Added By: Luther Lewis Add to Current Problems : YES ProblemS tatus: Current Ayla Britsch null, [place] [facility] 3 02:09:53 Sampling of vagina for Papanico laou smear Completed 201902/19/2023 Encounte r for gynecolo gical examinat ion (general ) (routine ) without abnormal findings ; Progress : Stable Added By: Arianna Lindsay Add to Current Problems : YES ProblemS tatus: Current Ayla Britsch null, [place] [facility] 3 02:09:50 Leukorrh ea 518021048 Completed 201308/18/2014 Physiolo gic vaginal discharg e; Progress : Stable Added By: Liana Ernst Add to Current Problems : NO ProblemS tatus: Resolve Vaginal Discharg e; Progress : Stable Added By: Darryn Sanford Add to Current Problems : NO ProblemS tatus: Resolve; Start Date : 04/29/20 14 Not Available [facility] 2 19:46:28 Acute vaginiti s [id number] Completed 201902/19/2023 Acute vaginiti s; Progress : Stable Added By: Luther Lewis Add to Current Problems : YES ProblemS tatus: Current Ayla Britsch null, [facility] IV 3 02:09:36 Human papillom avirus deoxyrib onucleic acid detected , high risk on cervical specimen [id number] Completed 201902/19/2023 Cervical high risk human papillom avirus (HPV) DNA test positive ; Progress : Stable Added By: Luther Lewis Add to Current Problems : YES ProblemS tatus: Current Ayla Britsch null, [facility] [email or web address] 3 02:09:56 Screenin g for malignan t neoplasm of cervix Completed 201908/10/2023 Encounte r for screenin g for malignan t neoplasm of cervix; Progress : Stable Added By: Arianna Lindsay Add to Current Problems : YES ProblemS tatus: Current Ayla Britsch null, [email or web address] 3 23:36:17 Antenata l screenin g Completed 201702/19/2023 Encounte r for other specifie d antenata l screenin g; Progress : Stable Added By: Nancy Narvaez Add to Current Problems : YES ProblemS tatus: Current Ayla Britsch null, [facility] 3 02:09:34 Bacteria l vaginosi s 829173295 Active 2022 MARY Combs [address] [facility], [place], [address] , [place] [facility] [email or web address] IV 3 14:46:27 Celiac disease 391801189 Active 2023 Luther Sweet Debbie [address], [address] , [facility] [email or web address] IV 4 12:23:27 Multinod ular goiter 626355069 Active 2023 Kellygaby Lewis [address], [address] , [facility] [email or web address] IV 4 17:29:39 Thyroid nodule 178180832 Active 2023 Luther Micki Lewis, [address], [address] , [facility] [email or web address] IV 4 17:29:54 Problem Notes None recorded. Procedures Surgical History Date Name Laterality Status Provider Name and Address Organization Details Recorded Time 3 Colposcopy - Cervix completed Beatrice Ayala VINAY [address] [place] [address], [address], [facility] [email or web address] IV 03/24/2023 13:15:27 3 Date of Last [email or web address] 08/10/2023 23:37:17 Imaging Results None recorded. Procedure Notes None recorded. Medical Equipment None Reported. Allergies No known drug allergies Medications Name Sig Start Date Stop Date Status Note LastModified by Organization Details LastModified Time celecoxib 200 mg capsule TAKE 1 CAPSULE BY MOUTH EVERY 12 HOURS NEEDED. TAKE WITH FOOD. active Not Available Not Available No t Available cyclobenz aprine 10 mg tablet TAKE 1 TABLET BY MOUTH TWICE DAILY NEEDED FOR MUSCLE SPASMS OR PAIN. DO NOT DRIVE OR OPERATE HEAVY MACHINER Y WHILE TAKING MEDICATI ON active Not Available Not Available No t Available fluconazo le 100 mg tablet 07/09 completed Not Available Not Available Not Available methocarb donato 500 mg tablet TAKE 1 TABLET BY MOUTH EVERY 8 HOURS 04/03 completed Not Available Not Available Not Available hydrocodo ne 7.5 mg-ibupro fen 200 mg tablet TAKE 1 TABLET BY MOUTH EVERY 8 HOURS NEEDED FOR PAIN CONTROL 02/19 completed Not Available Not Available Not Available nystatin 100,000 unit/mL oral suspensio n SHAKE LIQUID AND TAKE 5 ML BY MOUTH FOUR TIMES DAILY 04/03 completed Not Available Not Available Not Available clindamyc in HCl 300 mg capsule TAKE 1 CAPSULE BY MOUTH TWICE DAILY active Not Available Not Available No t Available fluconazo le 150 mg tablet take 1 tablet (150 mg) by oral route once after completi on of antibiot ics if experien cing symptoms of yeast infectio n 03/20 completed Not Available Not Available Not Available fluconazo le 200 mg tablet TAKE 1 TABLET BY MOUTH AT END OF ANTIBIOT ICS OR WHEN SYMPTOMS START AND 1 TABLET 72 HOURS LATER active Not Available Not Available No t Available metronida zole 0.75 % (37.5 mg/5 gram) vaginal gel INSERT 1 APPLICAT ORFUL VAGINALL Y EVERY DAY AT BEDTIME FOR 5 DAYS 08/10 completed Not Available Not Available Not Available hydroxyzi ne HCl 50 mg tablet TAKE 1 TABLET BY MOUTH THREE TIMES DAILY NEEDED FOR BREAKTHR OUGH ANXIETY active Not Available Not Available No t Available amlodipin e 5 mg tablet TAKE 1 TABLET BY MOUTH DAILY FOR HIGH BLOOD PRESSURE active Not Available Not Available No t Available omeprazol e 40 mg capsule,d elayed release TAKE 1 CAPSULE BY MOUTH DAILY active Not Available Not Available No t Available tramadol 50 mg tablet TAKE 1 TABLET BY MOUTH EVERY 8 HOURS NEEDED FOR PAIN 11/18 completed Not Available Not Available Not Available Vitamin tablet Take 1 tablet(s ) by mouth daily 12/11 completed Multivit segal Tablet Allow Substitu tion: True Refill Denied: No Not Available Not Available Not Available famotidin e 20 mg tablet TAKE 1 TABLET BY MOUTH TWICE DAILY active Not Available Not Available No t Available methocarb donato 750 mg tablet TAKE 1 TABLET BY MOUTH FOUR TIMES DAILY NEEDED FOR MUSCLE SPASMS active Not Available Not Available No t Available Flagyl 500 mg tablet Take 1 tablet(s ) by mouth bid for 7 days 08/10 completed Not Available Not Available Not Available diazepam 2 mg tablet TAKE 1 TABLET BY MOUTH EVERY 8 HOURS NEEDED 02/19 completed Not Available Not Available Not Available pantopraz ole 40 mg tablet,de layed release TAKE 1 TABLET BY MOUTH EVERY DAY BEFORE A MEAL 02/19 completed Not Available Not Available Not Available ursodiol 300 mg capsule TAKE 1 CAPSULE BY MOUTH TWICE DAILY active Not Available Not Available No t Available docusate sodium 100 mg capsule TAKE 1 CAPSULE BY MOUTH EVERY DAY active Not Available Not Available No t Available sertralin e 25 mg tablet TAKE 1 TABLET BY MOUTH DAILY FOR ANXIETY active Not Available Not Available No t Available monteluka st 10 mg tablet TAKE 1 TABLET BY MOUTH EVERY DAY AT BEDTIME FOR ASTHMA 04/03 completed Not Available Not Available Not Available methylpre dnisolone 4 mg tablets in a dose pack FOLLOW PACKAGE DIRECTIO NS 03/20 completed Not Available Not Available Not Available albuterol sulfate HFA 90 mcg/actua tion aerosol inhaler INHALE 2 PUFFS BY MOUTH EVERY 6 HOURS NEEDED FOR WHEEZING active Not Available Not Available No t Available norethind cristina (contrace ptive) 0.35 mg tablet TAKE 1 TABLET BY MOUTH DAILY AT SAME TIME EVERY DAY active Not Available Not Available No t Available celecoxib 100 mg capsule TAKE 1 CAPSULE BY MOUTH EVERY DAY FOR LEFT SHOULDER PAIN active Not Available Not Available No t Available ondansetr on 4 mg disintegr ating tablet DISSOLVE 1 TABLET ON THE TONGUE EVERY DAY FOR 7 DAYS active Not Available Not Available No t Available clotrimaz ole 1 % topical cream APPLY GRAM TOPICALL Y TO THE AFFECTED AREA THREE TIMES DAILY 11/19 completed Not Available Not Available Not Available sertralin e 50 mg tablet TAKE 1 TABLET BY MOUTH DAILY active Not Available Not Available No t Available naproxen 500 mg tablet TAKE 1 TABLET BY MOUTH EVERY 12 HOURS NEEDED FOR PAIN active Not Available Not Available No t Available Vitamins with Minerals 28 mg iron-800 mcg tablet Take 1 tablet every day by oral route for 30 days. 2023 active Not Available Not Available Not Avai lable amlodipin e 02/19 completed amLODIPi ne RxNorm: 031289 Allow Substitu tion: False Refill Denied: No Refill DateOccu rred: 02/22/20 20 Edited by: Cecily eyes, Guerda ) on 03/13/20 20 Stopped by: Cecily eyes, Guerda ) on Not Available Not Available Not Available ProAir HFA 2017 active ProAir HFA RxNorm: 362666 Allow Substitu tion: True Refill Denied: No Refill DateOccu rred: 11/16/20 18 Edited by: Arianna Gore ) on 02/22/20 20 Stopped by: les(Arianna Mena ) on Not Available Not Available Not Available Symbicort 160 mcg-4.5 mcg/actua tion HFA aerosol inhaler INHALE 2 PUFFS BY MOUTH TWICE DAILY FOR ASTHMA active Not Available Not Available No t Available Se-Lizet 19 29 mg iron-1 mg tablet TAKE 1 TABLET BY MOUTH EVERY DAY active Not Available Not Available No t Available Vitals Date Recorded Body height Body mass index (BMI) Body weight Systolic And Diastolic Provider Name and Address Organization Details Last Updated DateTime 11/19/2023 162.56 cm 18.5 kg/m2 26898.98 g 118/72 mm[Hg] Carolyn Murphyer [facility] [email or web address] [facility] 11/19/2023 12:03:00 Date Recorded Body height Body mass index (BMI) Body weight Body temperature Systolic And Diastolic Provider Name and Address Organization Details Last Updated DateTime 02/19/2023 162.56 cm 18.9 kg/m2 78338.1 6 g 97.6 [degF] 98/60 mm[Hg] Aylarobin Sanchez [facility] [email or web address] IV 3 14:24:27 Date Recorded Body height Body mass index (BMI) Body weight Systolic And Diastolic Provider Name and Address Organization Details Last Updated DateTime 03/24/2023 162.56 cm 18.5 kg/m2 23244.54 g 122/80 mm[Hg] Florachelsey BrowningLuke [facility] [email or web address] [facility] 03/24/2023 13:00:31 Date Recorded Body height Body mass index (BMI) Body weight Body temperature Systolic And Diastolic Provider Name and Address Organization Details Last Updated DateTime 04/03/2023 162.56 cm 18.8 kg/m2 83249.4 4 g 98 [degF] 100/70 mm[Hg] Yessica Cuello [facility] [email or web address] [facility] 3 14:43:59 Date Recorded Body height Body mass index (BMI) Body weight Body temperature Systolic And Diastolic Provider Name and Address Organization Details Last Updated DateTime 07/09/2022 162.56 cm 18.3 kg/m2 30048.6 7 g 98 [degF] 110/66 mm[Hg] Lucy Shaw [employer] 11:44:37 Social History Question Answer Notes LastModified by Organizat ion Details LastModified Time Tobacco Smoking Status Never Smoker Lucy Shaw null, [employer] 04/29/2022 11:38:57 Are You Blind Or Do You Have Difficulty Seeing? No Information not available 04/29/2022 Are You Deaf Or Do You Have Serious Difficulty Hearing? No Information not available 04/29/2022 What Type Of Diet Are You Following? GLUTENFREE Information not available 04/29/2022 Which Illicit Or Recreational Drugs Have You Used? Marijuana Information not available 04/29/2022 How Many Children Do You Have? 2 Information not available 04/29/2022 What Is Your Relationship Status? Single Information not available 04/29/2022 Are You Sexually Active? Yes Information not available 04/29/2022 Have You Used IV Drugs? No Information not available 04/29/2022 Sex: Unknown Functional Status Question Answer Note LastModified by Organizat ion Details LastModified Time Do you use any illicit or recreational drugs? Yes Information not available 04/29/2022 Do you or have you ever used any other forms of tobacco or nicotine? No Information not available 04/29/2022 What is your level of alcohol consumption? None Information not available 04/29/2022 What is your exercise level? None Information not available 04/29/2022 Mental Status None recorded. Family History Relationship Description Onset Age of this Age Resolved Age Notes LastModified by Organization Details LastModified Time Father No current problems or disability Not available 11:38:15 Mother No current problems or disability Not available 11:38:15 Medical History Condition Response Other Cancer N High Blood Pressure N Colon Cancer N Cytomegalovirus N Hyperthyroidism N MRSA N Blood Transfusion N Herpes (HSV) N Breast Cancer N Lung Cancer N Depression N Hypothyroidism N Incontinence N Panic Attacks N Neurological Disorder N Deep Vein Thrombosis N Anxiety Disorder Y Autoimmune disease N Arthritis N Shingles N Tuberculosis/Positive PPD N Polycystic Ovarian Syndrome N Cervical Cancer N Chlamydia N Hematuria N Stroke N Varicosities N Seasonal allergies N Crohn's Disease N Alzheimer's/Dementia N COPD/Emphysema N Endometriosis N HPV/Genital Warts N IBS (Irritable Bowel Syndrome) N History of Abnormal Pap N High Cholesterol N Liver Disease N Kidney Infection N Fibromyalgia N Ulcer N Kidney Disease N HIV N Gallbladder disease N Von Willebrand disease N Sickle Cell Disease/Trait N ADD/ADHD N Eating Disorder N Diabetes Mellitus (non-insulin dependent ) N Anemia N Ovarian Problems N Multiple Sclerosis N Gonorrhea N Frequent Urinary Tract infections N Osteopenia N Headaches/migraines N GERD (reflux) N Ovarian Cancer N Diabetes (insulin dependent) N Seizures/Epilepsy N Fibroids N Asthma Y Heart Attack N Endometrial Cancer N Lupus N Rubella N Blood Clotting Disorder N Bipolar Disorder N Diabetes Mellitus (during ) N Ulcerative Colitis N Hepatitis N Heart Disease N Pulmonary Embolism N RPR N Chicken Pox N Osteoporosis N Gynecological History Statement/Question Response Flow Heavy Date of last HPV 02/19/2023 Date of LMP 09/14/2023 HPV Vaccine N Duration of Flow (days) 5 Most Recent Mammogram Current Control Method None Age at Menarche 13 Date of Last Colonoscopy Most Recent Bone Density Date of Last Pap Smear 02/19/2023 Obstetrics History GPAL:G 4 P 2 0 2 2 Type Value Full Term 2 Induced 1 Spontaneous 1 Living 2 Total 4 Past Encounters Encounter ID Performer Location Encounter Start Date Encounter Closed Date Diagnosis/Indication Diagnosis SNOMED-CT Code Diagnosis ICD10 Code Diagnosis Note [id number] Leda Whitfield CNM [address] [place] [address] 04/29/2022 11:00:12 04/29/2022 12:40:10 Missed miscarriage 67792335 O02.1 reviewed ultrasound findings. Followup in 2 weeks and PRN Vaginal odor 861709005 N 89.8 [id number] Leda Whitfield CNM [facility] [address] [place] [address] 07/09/2022 11:00:08 07/09/2022 12:49:31 Cyst of ovary 98372489 N83.209 Reviewed ultrasound findings. Pain improved. Followup PRN [id number] Luther Joyano, VINAY [facility] [address] [place] [address] 02/19/2023 13:54:15 02/20/2023 11:14:57 Gynecologic examination 47308880 Z01.419 WWE completedP ap obtainedST I screening- swab obtainedCo ntraceptio n- declinesCB E nml. Discussed breast self-aware nessDiscus sed healthy diet, regular exercise, probiotics Screening for malignant neoplasm of cervix 459625912 Z12.4 Cervical cancer screening is used to find abnormal changes in the cells of the cervix that could lead to cancer. Screening includes the Pap test and, for some women, testing for a virus called human papillomav irus (HPV). The main cause of cervical cancer is infection with HPV. Depression screening 171 838904 Z13.31 Score 15; Irina has reached out to a mental health care provider. She denies SI/thought s of self-harm. Vaginal odor 758930268 N 89.8 Bacterial vaginosis 4197 65982 N76.0 [id number] Beatrice Ayala VINAY [facility] [address] [place] [address] 03/24/2023 12:55:23 03/24/2023 13:18:05 Abnormal cervical Papanicolaou smear 295713453 R87.619 UPT in office is negative. Pt educated on exam findings and samples taken. Pt tolerated procedure well. Pt educated on bleeding precaution s following procedure, to avoid anything in the vagina X 1 week post procedure, and when to notify HCP/go to ER. Samples sent to pathology. Further POC pending pathology results. Discussed the spectrum of abnormal pap smears, the relationsh ip to HPV infection, high and low risk HPV types, cervical dysplasia, cervical cancer, and genital warts. Reviewed HPV as a sexually transmitte d disease, the natural course of most infections and risk factors for infection. Reviewed the difference between LGSIL and HGSIL, and management strategies for each Colposcopy recommende d. Procedure reviewed in detail. [id number] GARRISON HUIZAR MD [facility] [address] [place] [address] 04/03/2023 14:36:19 05/05/2023 04:43:41 Vaginal discharge 547774870 N89.8 N76.0 [id number] MARY Combs [facility] [address] [place] [address] 11/19/2023 11:28:09 11/19/2023 18:37:35 test positive 394358628 Z32.01 64666703 Z33.1 SIUP @ 9.4 weeks gestationE DD 06/19/24- c/w LMP datesFHTs 121 bpm h/o preeclamps iah/o PTD at 36 weeks - induced d/t severe preeclamps iah/o growth restrictio n PMH (+) for:asthma - uses inhaler as neededceli ac disease - diet controlled thyroid noduleanxi ety and depression - not taking medication HSIL pap 02/2023 and colpo showed АЛЕКСАНДР 1 - plan pap at NOB visit Past pregn david history of pre-eclampsia 8999023308 69930 Z87.59 add baseline pre-eclamp dilip labs to NOB labsASA 81 mg after 12 weeks Past pregn david history of premature delivery 070746248 Z87.51 Delivered at 36 weeks gestation d/t preeclamps ia Past pregn david history of growth restriction 659890012 Z87.59 Discussed weight gain in pregnancyB CT 18.5-- 25 to 35 lb Celiac disease 842533180 K90.0 Health Concerns Section Related Observation LastModified by Organization Detai ls LastModified Time None Recorded Concern Status LastModified by Organization Details LastModified Time None Recorded Advance Directives Directive None Recorded Payers Insurance Date Sequence Insurance Name Policy Number Policy Cruz Covered Member ID Cruz Member ID Guarantor Name 05/24/2025 1 [facility] - DOS ON OR AFTER 21 (MEDICAID REPLACEMENT - HMO) Irina Cuba [id number] Irina [place] Notes Date Note Type Note Provider Name and Address Organization Details Recorded Time 07/09/2022 text/html pt is here today to f/u on ovarian cyst. Leda Whitfield, BEL [address] [facility], [place], [address], [facility] - [email or web address] 07/14/2022 20:04:34 02/19/2023 text/html Annual GYNReport ed bypatient.Menstrual cycle:Normal menses Urinary symptoms:No hematuria; No incontinence Vulva:No genital lesion Vagina:Normal vaginal discharge Breast:No breast pain; No breast lump; No nipple discharge Current Contraception: control not practiced Sexual complaints:No sexual complaints; No pain during intercourse; Normal libido Menopausal Symptoms:No menopausal symptoms; Normal vaginal lubrication Psychological symptoms:No depression; No anxiety; No PMDD Irina presents for her annual exam with pap. She reports vaginal discharge and odor. Denies vaginal irritation and pelvic pain. MARY Combs [address] [place], [address], [facility] [employer] 02/22/2023 15:39:56 03/24/2023 text/html Irina is here f or colpo for 02/19/23 HGSIL pap. She is currently sexually active. She declines STI testing. Her LMP was 03/11/23. She has not been sexually active since her LMP. She has a long standing hx of abnormal paps. MARY Werner [address] [facility], [place], [address], [facility] [employer] 03/24/2023 14:09:17 04/03/2023 text/html Pt presents for vaginal discharge.treated last month for BV with clindamycin.felt a little better and restarted s/s again.Hx of celiac disease on gluten free diet- had significant GI s/s with flagyl/ concern for gluten in pills. GARRISON MITCHELL MD [address] [place], [address], [employer] 04/03/2023 15:05:26 11/19/2023 text/html Confir mation VisitReported bypatient.obstetrics and gynecologygravida 5; para 2; US IUP Confirmed; heart tones: (121 bpm); EDC (US): (07/07/2024); GA (LMP): (9.4; TRUONG 06/19/24) Irina presents for a confirmation visit.She was seen in the ER for c/o abdominal cramping. She was told to have two small JULIA, measuring 0.6 cm and one right ovarian cyst 2.1 cm.seen in er for abdominal cramping. 28 y.o. [id number] 09/14/23She denies vaginal bleeding, discharge, abdominal pain, and fever. She denies nausea and vomiting. MARY Combs [address] [facility], [place], [address], [facility] 11/25/2023 17:50:17 OBGyn Episode Ob Episode Information Episode Created Date Number of Fetuses Patient Bloodtype Patient rh Status Prepregnancy Weight lbs Domestic Partner Domestic Partner Phone Father Name Bag Making Machine Operator Status 02/01/20 22 1 CLOSED Fetus Data First Name Last Name Admitted to NICU Weight (g) Sex Living Outcome Pediatric Complications Fetus ID Race Codes Race Delivery Type [phone] [id number] M [id number] Truong Calculation Initial Truong Date Initial Exam Date Initial Exam Provider Initial Ultrasound Date Last Menstrual Period Date Ultra Sound Weeks Gestation 0 Eighteen To Twenty Week Truong Update Ultra Sound Date Fundal Height At Umbil Quickening Date Ultra Sound Latest Weeks Gestation Final Truong Confirmed By Final Truong Confirmed Date Final Truong Date Ultra Sound Latest Days Gestation 0 0 Menstrual History Last Menstrual Date Menses Monthly On Bcp Conception Prior Menses Frequency Hcg Plus Date Menarche Onset Age Delivery Information Delivery Date Delivery Type Labor Anesthesia Weeks Gestation Incision Type Labor Labor Length Hrs Delivered By Post Complications Tubal Sterilization Discharge Date Comments 5 39 false Comments : Asthma was bad at time and she had to see MFM for this Discharge Information Feeding Method Contraceptive Method Maternal HG B and HCT Levels Ob Episode Information Episode Created Date Number of Fetuses Patient Bloodtype Patient rh Status Prepregnancy Weight lbs Domestic Partner Domestic Partner Phone Father Name Bag Making Machine Operator Status 02/01/20 22 1 CLOSED Fetus Data First Name Last Name Admitted to NICU Weight (g) Sex Living Outcome Pediatric Complications Fetus ID Race Codes Race Delivery Type [id number] Truong Calculation Initial Truong Date Initial Exam Date Initial Exam Provider Initial Ultrasound Date Last Menstrual Period Date Ultra Sound Weeks Gestation 0 Eighteen To Twenty Week Truong Update Ultra Sound Date Fundal Height At Umbil Quickening Date Ultra Sound Latest Weeks Gestation Final Truong Confirmed By Final Truong Confirmed Date Final Truong Date Ultra Sound Latest Days Gestation 0 0 Menstrual History Last Menstrual Date Menses Monthly On Bcp Conception Prior Menses Frequency Hcg Plus Date Menarche Onset Age Delivery Information Delivery Date Delivery Type Labor Anesthesia Weeks Gestation Incision Type Labor Labor Length Hrs Delivered By Post Complications Tubal Sterilization Discharge Date Comments 8 None false Discharge Information Feeding Method Contraceptive Method Maternal HG B and HCT Levels Ob Episode Information Episode Created Date Number of Fetuses Patient Bloodtype Patient rh Status Prepregnancy Weight lbs Domestic Partner Domestic Partner Phone Father Name Bag Making Machine Operator Status 02/01/20 22 1 CLOSED Fetus Data First Name Last Name Admitted to NICU Weight (g) Sex Living Outcome Pediatric Complications Fetus ID Race Codes Race Delivery Type 1955.11 [phone] F [id number] Truong Calculation Initial Truong Date Initial Exam Date Initial Exam Provider Initial Ultrasound Date Last Menstrual Period Date Ultra Sound Weeks Gestation 0 Eighteen To Twenty Week Truong Update Ultra Sound Date Fundal Height At Umbil Quickening Date Ultra Sound Latest Weeks Gestation Final Truong Confirmed By Final Truong Confirmed Date Final Truong Date Ultra Sound Latest Days Gestation 0 0 Menstrual History Last Menstrual Date Menses Monthly On Bcp Conception Prior Menses Frequency Hcg Plus Date Menarche Onset Age Delivery Information Delivery Date Delivery Type Labor Anesthesia Weeks Gestation Incision Type Labor Labor Length Hrs Delivered By Post Complications Tubal Sterilization Discharge Date Comments 9 None 36.4 false Comments : Uknown Gender Discharge Information Feeding Method Contraceptive Method Maternal HG B and HCT Levels
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
--- OUTSIDE RECORDS SUMMARY | 2025-05-31 06:45 | XMS_ITS | Encounter Summary ---
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 Answer Date of Assessment Author No 06/06/2015 2:18 PM CDT Tati Kim ra, ILEANA * Is person blind or have serious difficulty seeing? Answer Date of Assessment Author No 06/06/2015 2:18 PM CDT Tati Kim ra, RN * Does person have serious difficulty walking/climbing stairs? Answer Date of Assessment Author No 06/06/2015 2:18 PM CDT Tati Kim ra, RN * Does person have difficulty dressing/bathing? Answer Date of Assessment Author No 06/06/2015 2:18 PM CDT Warren Quiroz RN * Does person have difficulty doing errands alone? Answer Date of Assessment Author No 06/06/2015 2:18 PM CDT Tati Kim ra, RN documented as of this encounter Mental Status * Does person have difficulty concentrating/remembering/making decisions? Answer Entry Date Author No 06/06/2015 2:18 PM CDT Tati Kim ra, RN documented in this encounter Miscellaneous Notes * Telephone Encounter - Marisol Hewitt RN - 01/20/2019 11:54 AM CST Pt called with complaints of recurrent migraines/tension headaches. Pt describes tension and neck pain that is unrelieved by 1000mg Tylenol q6. Pt stated she had spoken with Dr. Campbell at last appointment 01/15 and was to be discussed at next appointment. Pt states she couldn't wait until the 02/12for this to be resolved. Problem appointment for headache management made for 01/28 at 1500. Pt verbalized that she will attend appointment. 

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
--- OUTSIDE RECORDS SUMMARY | 2025-05-31 06:46 | XMS_ITS | Referral Summary ---
Author Organization [address] Address [address] [place] [id number] Care Team Providers Care Sports Leadership Instructor Name Role Phone Fay Ayala DINING ROOM BUSSER Primary Care Provider [phone] Allergies Active Allergy Reactions Criticality Noted Date [...] pain 60 tablet 4 Active PNV with etgllqk-htzc-GW 27 mg iron- 1 mg tabletIndications: Vitamin [...] day 60 tablet 2 4 Active lactic aqzr-bwrgrh-qdlesz ium (Phexxi) 1.8-1-0.4 % gel vaginal gel [...] CV/Pulm: Vital signs stable, within normal limits. #GA Asthma: continue home symbicort and albuterol # [...] # Disposition: Follow up task sent to [facility] scheduling pool. Desires discharge home today. complications: [...] reports prior symptoms of abdominal pain/weight loss/anemia. #GA asthma: continue Symbicort, albuterol #Thyroid nodule: No thyroid disease symptoms, negative prior work-up, follows with Endo via [facility] at [facility], TSH 0.844 on 12/17/23 Thyroid nodule 03/16/2024 Overview (03/16/2024): No thyroid disease symptoms, negative prior work-up, follows with Endo via [facility]lred Knotts at [facility],TSH 0.844 on 12/17/23 Supervision of normal 03/16/2024 [...] education: completed in all 3 trimesters [x] Education Spec: List provided [x] Car seat discussed, patient [...] , as well as referral to a director housekeeping and pulmonary function testing. During delivery, recommend [...] Dates Next Due Tdap 04/16/2024 Varicella 06/28/2024 Social History Tobacco Use Types Packs/Day Years Used Date Smoking Tobacco: Never Smokeless Tobacco: Never Tobacco Cessation:Counseling Given: Not Answered [facility] Utilities Answer Date Recorded In the past 12 months has th e [employer], gas, oil, or water [employer] threatened to shut off services in your [...] often do you attend chur ch or jain services? Never 06/28/2024 Do you belong to any clubs o r organizations such as scientologist groups, unions, fraternal or athletic groups, or [...] things needed for daily living? No 06/28/2024 [place] Depression Scale Answer Date Recorded [place] Depression Scale Total 2 08/27/2024 The thought [...] any time in the past 12 m ont, were you homeless or living in a mcfp (including now)? No 06/28/2024 Personal Safety Answer Date Recorded Have you ever been in or are you currently in a harmful physical or emotional relationship or is someone making you feel afraid or unsafe? 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
[2025-05-31 07:10] VITALS: BP 147/82; PULSE 94; RESP 16; TEMP 36.6; O2SAT 100
--- OUTSIDE RECORDS SUMMARY | 2025-05-31 07:18 | XMS_ITS | Encounter Summary ---
Author Organization [facility] Address [address] [place] [address] Care Team Providers Care Frame Bender Name Role Phone Unavailable Primary Care Provider Unavailabl e Reason for Visit * Reason Onset Date Comments Patient Requested Call 01/20/2019 Encounter Details Date Type Department Care Team (Late st Contact Info) Description 01/20/2019 Telephone [facility] MATERNAL/ EVALUATION UNIT [address] [place] [address] Marisol Lizarraga RN Patient Requested Call Social History Tobacco Use Types Packs/Day Years Used Date Smoking Tobacco: Never Smokeless Tobacco: Never Alcohol Use Standard Drinks/Week Comments No 0 (1 standard drink = 0.6 oz pur e alcohol) Comments Yes Sex and Gender Information Value Date Recorded Sex Assigned at Not on file Legal Sex Female 5:42 AM PEDIATRIC LICENSED PRACTICAL NURSE Gender Identity Not on file Sexual Orientation [...] Pt verbalized that she will attend appointment. ATRIC LICENSED PRACTICAL NURSE documented in this encounter Plan of Treatment Not on file documented as of this encounter Visit Diagnoses Not on filedocumented in this encounter
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
--- OUTSIDE RECORDS SUMMARY | 2025-05-31 07:19 | XMS_ITS | Clinical Summary ---
Author Organization [address] Address [address] [place] [id number] Care Team Providers Care Cut File Clerk Name Role Phone Fay Aayla HUMAN RESOURCES CLERK Primary Care Provider [phone] Allergies Active Allergy Reactions Criticality Noted Date [...] pain 60 tablet 4 Active PNV with keoqujg-hhdy-XE 27 mg iron- 1 mg tabletIndications: Vitamin [...] day 60 tablet 2 4 Active lactic fchd-usznoa-dbkrnf ium (Phexxi) 1.8-1-0.4 % gel vaginal gel [...] CV/Pulm: Vital signs stable, within normal limits. #[place] Asthma: continue home symbicort and albuterol # [...] # Disposition: Follow up task sent to [facility] scheduling pool. Desires discharge home today. complications: [...] reports prior symptoms of abdominal pain/weight loss/anemia. #[place] asthma: continue Symbicort, albuterol #Thyroid nodule: No thyroid disease symptoms, negative prior work-up, follows with Endo via Ml Gant at [facility], TSH 0.844 on 12/17/23 Thyroid nodule 03/16/2024 Overview (03/16/2024): No thyroid disease symptoms, negative prior work-up, follows with Endo via Mlred Knotts at [facility],TSH 0.844 on 12/17/23 Supervision of normal 03/16/2024 [...] education: completed in all 3 trimesters [x] Corporate Webmaster: List provided [x] Car seat discussed, patient [...] , as well as referral to a tube worker and pulmonary function testing. During delivery, recommend [...] Tobacco: Never Tobacco Cessation:Counseling Given: Not Answered [facility] Utilities Answer Date Recorded In the past [...] often do you attend chur ch or taoism services? Never 06/28/2024 Do you belong to any clubs o r organizations such as rastafari groups, unions, fraternal or athletic groups, or [...] things needed for daily living? No 06/28/2024 Gleason Depression Scale Answer Date Recorded Gleason Depression Scale Total 2 08/27/2024 The thought [...] any time in the past 12 m [facility], were you homeless or living in a long-term (including now)? No 06/28/2024 Personal Safety Answer Date Recorded Have you ever been in or are you currently in a harmful physical or emotional relationship or is someone making you feel afraid or unsafe? Denies 06/26/2024 Comments No Sex and Gender Information Value Date Recorded Sex Assigned at Not on file Legal Sex Female 9:13 PM SECURITY CONTROL CENTER OPERATOR Gender Identity Not on file Sexual [...] Kayla bass, Bao dumont MD Complications:None Delivery Location:[facility] ([facility]) Last Filed Vital Signs Vital [...] Screening Completed 1995 , 1995, 1995 Insurance [facility] Advance Directives For more information, please contact: [phone] Documents on File Type Date Recorded Patient Industrial Psychologist Expl anation Advance Directives and Livin g Will 06/18/2024 10:13 PM * Full Code (Latest Code Status on File) Date Activated Date Inactivated Comments 06/27/2024 9:57 AM 06/28/2024 7:49 PM * Full Code Date Activated Date Inactivated Comments 06/26/2024 9:47 PM 06/27/2024 9:57 AM Full CPR in case of cardiopulmonary arrest Care Teams Cut File Clerk Relationship Specialty Start Date End Date Fay Ayala NP [address] [facility] [address] [place] [address] PCP - General Family Medicine 11/14/23
--- OUTSIDE RECORDS SUMMARY | 2025-05-31 07:19 | XMS_ITS | Encounter Summary ---
Author Organization [facility] Care Team Providers Care Fiberglass Boat Finisher Name Role Phone Leigh Nagy MD Primary Care Provider Kamala Donis Primary Care Provider [phone] Davey Benton MD Unavailable [phone]- [phone] No, Physician Primary Care Provider [phone] Fay Ayala NP Primary Care Provider [phone] Encounter Details Date Type Department Care Team (Latest Contact Info) Description 07/15/2017 Orders Only [facility]INCONV Provider, MD Rolando [address] [place] [address] Social History Tobacco Use Types Packs/Day Years Used Date Smoking Tobacco: Never Assessed Comments Unknown Sex and Gender Information Value Date Recorded Sex Assigned at Not on file Legal Sex Female 9:13 PM SIMULATION SPECIALIST Gender Identity Not on file Sexual [...] on filedocumented in this encounter Care Teams Fiberglass Boat Finisher Relationship Specialty Start Date End Date Leigh Nagy MD [address] [facility] [place] [address] PCP - General 01/01/19 08/23/20 Kamala Donis PA [address] [place] [address] PCP - General Family Medicine 08/24/20 05/21/21 No, Physician PCP - General 05/24/21 11/13/23 Fay Ayala NP [address] [place] [address] [place] [address] PCP - General Family Medicine 11/14/23 Davey Benton MD [address] [place] [address] Consulting Physician Family Medicine 08/24/20 05/21/21 documented as of this encounter
--- OUTSIDE RECORDS SUMMARY | 2025-05-31 07:19 | XMS_ITS | Referral Summary ---
Author Organization [address] Address [address] [place] [address] Care Team Providers Care Closing Specialist Name Role Phone Fay Ayala GPS NAVIGATION INSTALLER Primary Care Provider [phone] Allergies Active Allergy Reactions Criticality Noted Date [...] pain 60 tablet 4 Active PNV with jkdugfi-uvbj-TI 27 mg iron- 1 mg tabletIndications: Vitamin [...] day 60 tablet 2 4 Active lactic drrk-hmqprh-ynfmfi ium (Phexxi) 1.8-1-0.4 % gel vaginal gel [...] CV/Pulm: Vital signs stable, within normal limits. #[place] Asthma: continue home symbicort and albuterol # [...] # Disposition: Follow up task sent to [facility] scheduling pool. Desires discharge home today. [...] reports prior symptoms of abdominal pain/weight loss/anemia. #[place] asthma: continue Symbicort, albuterol #Thyroid nodule: No thyroid disease symptoms, negative prior work-up, follows with Endo via Ml Gant at [facility], TSH 0.844 on 12/17/23 Thyroid nodule 03/16/2024 Overview (03/16/2024): No thyroid disease symptoms, negative prior work-up, follows with Endo via Mlred Knotts at [facility],TSH 0.844 on 12/17/23 Supervision of [...] education: completed in all 3 trimesters [x] Diversified Crops Farmworker: List provided [x] Car seat discussed, patient [...] , as well as referral to a steam trap man and pulmonary function testing. During delivery, recommend [...] Tobacco: Never Tobacco Cessation:Counseling Given: Not Answered [facility] Utilities Answer Date Recorded In the past 12 months has th e [employer] gas, oil, or water e-channel threatened to shut off services in your [...] often do you attend chur ch or congregation services? Never 06/28/2024 Do you belong to any clubs o r organizations such as latter day groups, unions, fraternal or athletic groups, or [...] things needed for daily living? No 06/28/2024 Shawnee Depression Scale Answer Date Recorded Shawnee Depression Scale Total 2 08/27/2024 The thought [...] were you homeless or living in a mcc (including now)? No 06/28/2024 Personal Safety Answer Date Recorded Have you ever been in or are you currently in a harmful physical or emotional relationship or is someone making you feel afraid or unsafe? Denies 06/26/2024 Comments No Sex and Gender Information Value Date Recorded Sex Assigned at Not on file Legal Sex Female 9:13 PM BORING MACHINE OPERATOR HELPER Gender Identity Not on file Sexual Orientation [...] Plan of Treatment Not on file Insurance [facility] [id number] [place] [address] [facility] Advance Directives For more information, please contact: [phone] Documents on File Type Date Recorded Patient Hostess Cashier Expl anation Advance Directives and Livin g Will 06/18/2024 10:13 PM * Full Code (Latest Code Status on File) Date Activated Date Inactivated Comments 06/27/2024 9:57 AM 06/28/2024 7:49 PM * Full Code Date Activated Date Inactivated Comments 06/26/2024 9:47 PM 06/27/2024 9:57 AM Full CPR in case of cardiopulmonary arrest Care Teams Closing Specialist Relationship Specialty Start Date End Date Fay Ayala NP [address] [facility] [address] [place] [address] PCP - General Family Medicine 11/14/23
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
== END 2025-05-31 07:57 | disposition home or self-care (01) ==
PROVIDERS: Emergency Provider Emergency Medicine
DX: R51.9 Headache, unspecified (principal); I10 Essential (primary) hypertension; K21.9 Gastro-esophageal reflux disease without esophagitis; Z79.899 Other long term (current) drug therapy
CPT/HCPCS: 99283

== ENCOUNTER 2025-09-28 08:45 | Emergency (ER) | payer MEDICAID, SELFPAY ==
--- OUTSIDE RECORDS SUMMARY | 2025-05-12 18:00 | XMS_ITS | Continuity of Care Document ---
Author Organization [facility] Address [address] [place] [id number] Phone Care Team Providers Care Adjuster Leader Name Role Phone Selene MARKS, Charlie Unavailable Unavailabl e Procedures Procedure Date ELECTROCARDIOGRAM REPORT Advance Directives Directive Yes / No Effective Date File Name No Information Encounters Encounter Description Practice Location Reason(s) For Visit Diagnoses Date Provider Providers Copied on Encounter [facility], [address] [place] [address], [id number], tel:[phone] [facility] No Information Selene Guerra. [address] [place] [address], [id number], . tel:[phone] Referring Provider: Charlie Morton, [address] [place] [address], [id number]. tel:[phone] Family History Family Member Type Diagnosis Age At Onset No Information Payers Payer name Insurance type Covered green party ID Venus eastman(s) [employer] CI [id number] Social History Type Description Quantity Date Captured Comments Sex Female Smoking Status No Information Chief Complaint And Reason For Visit No Information Reason For Referral Reason For Referral No Information History Of Present Illness Encounter Date Complaint History Of Prese nt Illness No Information Functional Status Date Functional Assessmen t No Information Instructions Date Instruction Additional Infor mation No Information Assessments Type Assessment Date No Information Patient Care Teams Name Effective Dates (start - stop) Status Members No Information
--- NOTE | ~2025-09-28 | US_ITS ---
CORRECTED REPORT examination description corrected to US OB <=14 weeks fetus [facility] 09/29/2025 This report was recreated on 09/29/2025. Original report was SIOLOGIST EXAMINATION: US OB <=14 weeks fetus DATE: 09/28/2025 11:55 INDICATION: Bleeding during late first trimester TECHNIQUE: Real-time pelvic ultrasound utilizing both a transvaginal and transabdominal probe was performed. The interpreting radiologist was not present for the study. COMPARISON: None. FINDINGS: The uterus measures 10.2 x 5.0 x 7.0 cm. The endometrial complex measures1.4 cm in thickness at the fundus.There is a 3.1 x 1.6 x 1.6 cm lenticular anechoic fluid collection within the endometrial canal of the lower uterine segment. There is an additional minimal amount of anechoic fluid within the endocervical canal. No evident intrauterine gestational sac. The right ovary measures 5.3 x 3.6 x 5.4 cm. 1.3 similar anechoic cyst/follicle in the right ovary. The left ovary measures 3.3 x 2.5 x 2.0 cm. Vascular flow identified in both ovaries on color Doppler. There is no free fluid in the pelvis. IMPRESSION: 1. Small amount of fluid within the endometrial canal of the lower uterine segment with no evident intrauterine gestational sac. Differential would include early, failed or ectopic . Recommend correlation with any prior outside imaging. Reviewed, dictated and finalized at location A. SIOLOGIST IMPRESSION: 1. Small amount of fluid within the endometrial canal of the lower uterine segm ent with no evident intrauterine gestational sac. Differential would include ea rly, failed or ectopic . Recommend correlation with any prior outside imaging.
[2025-09-28 09:05] VITALS: BP 120/75; PULSE 74; RESP 18; TEMP 36.9; O2SAT 100
--- NOTE | 2025-09-28 09:19 | PC.NURSE ---
while hooking patient up to vital signs patient stated that she feels something coming out of me patient had large amounts of blood on alf pad placed underneath her with large clots present.
--- NOTE | 2025-09-28 09:33 | ED.PREGNANCY ---
HPI - General Chief complaint: [employer] Stated complaint: vag bleed, possible miscarriage Time Seen by Provider: 09/28/25 09:04 Source: patient Mode of arrival: ambulatory Limitations: no limitations History of Present Illness HPI Narrative: This is a 30 year old female that presents to the ER for vaginal bleeding. Reports she was told she would likely have a miscarriage September 06. She started to have bleeding a couple of days ago. Reports increased bleeding today with clots which prompted her to be seen. Reports pelvic cramping. Related Data Home Medications ?Medication ?Instructions ?Recorded ?Confirmed ?Last Taken ?Type albuterol sulfate 90 mcg/actuation inhalation 06/06/24 Unknown History aerosol inhaler vitamins no.119-iron tablet PO 06/06/24 Unknown History fumarate 29 mg-folic acid 1 mg tablet (Se-Lizet 19) Allergies Allergy/AdvReac Type Severity Reaction Status Date / Time Latex, Natural Rubber Allergy Rash Verified 05/31/25 06:43 Review of Systems Review of Systems: All systems reviewed & are unremarkable except as noted in HPI and below PMFSH Past Medical History Medical History (Updated 09/28/25 @ 13:00 by Pat Schneider PA-C) History of gastroesophageal reflux (GERD) Social History Social History (Updated 12/02/24 @ 19:50 by Pat Schneider PA-C) Substance use: current Substance use type: marijuana Exam Narrative: GENERAL: Well-appearing, well-nourished, and in no acute distress. HEAD: Normocephalic, atraumatic. EYES: EOMI. CHEST: Clear to auscultation. No respiratory distress. No wheezes rales or rhonchi HEART: Regular rate and rhythm. No murmur heard. Normal peripheral pulses. ABDOMEN: Soft, nontender, nondistended, normal active bowel sounds. EXTREMITIES: Normal range of motion. No edema. SKIN: Warm, dry, no rash. NEURO: No focal deficits. Alert and oriented x3. PSYCH: Normal mood and affect Course Consultations Consultation #1: Spoke with Dr. Garsia about patient and workup. Will order repeat quantitative beta HCG and she can follow up with her at 11:15 a.m. tomorrow Date: 09/28/25 Vital Signs Vital signs: Vital Signs Temperature 98.4 F 09/28/25 09:05 Pulse Rate 74 09/28/25 09:05 Respiratory Rate 18 09/28/25 09:05 Blood Pressure 120/75 09/28/25 09:05 Pulse Oximetry 100 09/28/25 09:05 Oxygen Delivery Room Air 09/28/25 09:05 Temperature 98.1 F 09/28/25 12:14 Pulse Rate 76 09/28/25 12:14 Respiratory Rate 17 09/28/25 12:14 Blood Pressure 133/64 09/28/25 12:14 Pulse Oximetry 100 09/28/25 12:14 Oxygen Delivery Room Air 09/28/25 09:05 MDM - OB/Uterine Contractions MDM Narrative Medical decision making narrative: This is a 30-year-old female that presents to the emergency department for bleeding in . Reports she was told at the end of last month based on her ultrasound she would likely have a miscarriage. She started bleeding over the last couple of days. Reports bleeding worsened today which prompted her to be seen. Her vitals are stable. Hemoglobin is 10.9. Metabolic panel with mild hypokalemia, potassium was replaced. Ultrasound OB shows small amount of fluid within the endometrial canal of the lower uterine segment with no evident intrauterine gestational sac. Spoke with Dr. Garsia about patient and workup. Will order repeat quantitative beta HCG and she can follow up with her at 11:15 a.m. tomorrow Differential Diagnosis Differential diagnosis: Likely other (Threatened miscarriage, miscarriage) Lab Data Attestation: I reviewed the patient's lab results. 09/28/25 10:09 09/28/25 10:09 Labs: Lab Results 09/28/25 Range/Units 10:09 WBC 8.3 (4.5-10.0) K/mm3 RBC 3.23 L (4.2-5.4) M/mm3 Hgb 10.9 L (12.0-15.0) g/dL Hct 31.2 L (37.0-47.0) % MCV 96.6 (80-100) fl MCH 33.7 (26-34) pg MCHC 34.9 (32-36) g/dl RDW 16.7 H (11.5-14.5) % Plt Count 231 (150-375) k/mm3 MPV 9.2 (7.4-10.4) fl Immature Gran % (Auto) 0.5 (0-0.5) % Neut % (Auto) 75.3 H (45.5-73.1) % Lymph % (Auto) 16.0 L (18.3-44.2) % Vilas % (Auto) 5.1 (2.6-8.5) % Eos % (Auto) 2.5 (0-4.4) % Baso % (Auto) 0.6 (0.2-1.2) % Lymph # (Auto) 1.33 (0.9-3.2) K/mm3 Vilas # (Auto) 0.4 (0.1-0.6) K/mm3 Eos # (Auto) 0.2 (0-0.3) K/mm3 Baso # (Auto) 0.1 (0.0-0.1) K/mm3 Abs Immat Gran (auto) 0.04 H (0.00-0.031) K/mm3 Absolute Neuts (auto) 6.3 (1.3-6.7) K/mm3 Absolute Nucleated RBC 0.000 (0.0-0.012) K/mm3 Nucleated RBC % 0.0 (0.0-0.2) % PT 14.4 (11.1-14.7) Seconds INR 1.1 APTT 27.3 (22.3-36.8) Seconds Sodium 139 (137-145) mmol/L Potassium 3.1 L (3.4-5.0) mmol/L Chloride 107 (98-107) mmol/L Carbon Dioxide 20 L (22-30) mmol/L Anion Gap 12 (4-12) mmol/L BUN 12 (7-17) mg/dL Creatinine 0.64 L (0.7-1.0) mg/dL Estim Creat Clear Calc 85 ml/min Estimated GFR > 60 (59 - ) Glucose 71 (65-110) mg/dL Calcium 8.6 (8.4-10.2) mg/dL Magnesium 2.0 (1.6-2.3) mg/dL Total Bilirubin 0.3 (0.2-1.3) mg/dL AST 28 (14-36) U/L ALT 22 (6-35) U/L Alkaline Phosphatase 57 (38-126) U/L Total Protein 7.1 (6.3-8.2) g/dL Albumin 4.5 (3.5-5.1) g/dL Beta HCG, Quant 2645.10 mIU/ML Blood Type B Positive Antibody Screen Negative Screen Not Reportable Baby's Blood Type Not Reportable Baby's BROOKE Not Reportable Doses of RhIg Required 0 Imaging Data Radiologist's impression: ITS Impressions Obstetrics Ultrasound 09/28/25 12:00 IMPRESSION: 1. Small amount of fluid within the endometrial canal of the lower uterine segment with no evident intrauterine gestational sac. Differential would include early, failed or ectopic . Recommend correlation with any prior outside imaging. Critical Care Time Critical Care Time Critical Care Time: No Discharge Plan Discharge Clinical Impression: Threatened miscarriage, Acute hypokalemia Anemia Qualifiers: Anemia type: unspecified type Qualified Code(s): D64.9 - Anemia, unspecified Patient Disposition: Home Condition: Stable Instructions: Threatened Miscarriage (ED), Hypokalemia (ED), Anemia (ED) Additional Instructions: Return to the ER if you experience fever, shortness of breath, you are soaking through a pad/hour, you pass out, or any other symptoms that are concerning to you Pelvic rest, no tampons or sex. Follow up with OB. Dr. Garsia will see you in her office at 11:15AM in the office. She would like you to have the repeat hormone tomorrow morning Patient Language: Bangladeshi Prescriptions: No Action ondansetron 4 mg tablet,disintegrating 4 mg PO Q8H PRN (Reason: nausea and vomiting) Qty: 14 0RF albuterol sulfate 90 mcg/actuation HFA aerosol inhaler INHALATION Se- 19 29 mg iron- 1 mg tablet PO ursodiol 300 mg Capsule 300 mg PO BID Qty: 14 0RF Other Ambulatory Orders: Beta HCG Quantitative (Routine) Timeframe: 1 Day Location: Determined by Patient Ordered By: Pat Schneider Follow-up/Referrals: UNKNOWN,DOCTOR [Primary Care Provider]
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
--- OUTSIDE RECORDS SUMMARY | 2025-09-28 09:56 | XMS_ITS | Data Portability ---
Author Organization [facility], Main Office Address [address] [place] [address] Assessment Encounter Date Assessment Date Assessment LastModified by Organization Details LastModified Time 09/15/2025 09/15/2025 The patient has a nondisplaced cortical fracture of the distal radius right wrist. The fracture is noted on the lateral view mostly there appeared to be cortical disruptions over the dorsum and the volar surface of the distal radius metaphysis. The patient states she has several children at home who are quite rambunctious she states that she would like to protect it as much as she can. I offered her a short arm cast today she wanted to proceed. Therefore I placed her in a short-arm cast that is well padded she tolerated the procedure well. We talked about cast care in detail I have advised her to keep it clean and dry elevate it if necessary for swelling control. She can work on moving her fingers I have advised her not to do anything too heavy repetitive with the hand. I will see her back in a couple of weeks for a new x-ray we will make sure she is well shielded with lead gown at that time because she is . Anticipate casting for a month followed by a cock-up wrist brace. She voiced understanding agrees above plan she will call for any further problems difficulties or questions. [email or web address] Not available 09/15/2025 12:16:15 Plan of Treatment Reminders Order Date Submit Date Provider Last Modified By Organization Details Last Modified Time Details Appointments Any 5 2024 09:45A RUBEN Brown Not available Not available Not available Lab pancreati c elastase, stool 2022 023 [facility], [address], [place], [address], 02/25/2023 17:01:54 fecal fat, qualitati ve, stool 2022 023 [facility], [address], [place], [address], 02/25/2023 17:01:54 food allergen panel, serum 2022 023 [facility], [address], [place], [address], 02/25/2023 17:01:55 Referral None recorded. Procedures None recorded. Surgeries None recorded. Imaging NM, thyroid scan, w/ uptake 2022 023 [facility] ([facility]), [address] [place] [address], [address], 02/25/2023 17:06:57 Medication Orders None recorded. Patient TargetsNo targets recorded. Patient Instructions Encounter Date Encounter Id Patient Instructions Last Modified By Organization Details Last Modified Time 09/15/2025 [id number] application of cast, short arm cast* Not available 09/15/2025 13:48:17 Reason for Referral None Reported. Results Created Date Observation Date Name Description Value Unit Range Abnormal Flag Note LastModifiedBy Organization Detail LastModifiedTime 10/24/20 22 10/31/2022 HEMOG LOBIN A1C hemoglobin A1C 5.0 %_of_ total _HGB <5.7 normal For the purpo se of miguel howardg for the prese nce of diabe madeleine: <5.7% Consi stent with the absen ce of diabe madeleine 5.7-6 .4% Consi stent with incre ased risk for diabe madeleine (pred iabet es) > or =6.5% Consi stent with diabe madeleine This assay resul t is consi stent with a decre ased risk of diabe madeleine. Curre ntly, no conse nsus exist maru michel use of hemog lobin A1c for diagn osis of diabe madeleine in child abner. Accor ding to Ameri can Diabe madeleine Assoc iatio n (ADA) guide lines , hemog lobin A1c <7.0% repre sents optim al contr ol in non-p regna nt diabe tic patie nts. Diffe rent jonatan cs may apply to speci fic patie nt popul ation s. [facility] in Diabe madeleine(A DA). Not Available [address] [address] [place], [address], 10/31/2022 19:38:00 10/24/20 22 10/31/2022 TSH+F REE T4 TSH 0.82 mIU/L normal Refer ence Range > or = 20 Years 0.40- 4.50 Pregn david Range s First trime ster 0.26- 2.66 Secon d trime ster 0.55- 2.73 Third trime ster 0.43- 2.91 Not Available [address] [address] [place], [address], 10/31/2022 19:38:00 10/24/20 22 10/31/2022 TSH+F REE T4 T4, free 1.0 NG/dL 0.8-1. 8 normal Not Available [address] [place], [address], 10/31/2022 19:38:00 10/24/20 22 10/31/2022 T3, FREE T3, free 2.9 pg/mL 2.3-4. 2 normal Not Available [address] [place], [address], 10/31/2022 19:37:59 10/24/20 22 10/31/2022 VITAM IN B12/F OLATE , SERUM PANEL vitamin B12 910 pg/mL 200-11 00 normal Not Available [facility] [address], [address], 10/31/2022 19:37:59 10/24/20 22 10/31/2022 VITAM IN B12/F OLATE , SERUM PANEL folate, serum 6.7 NG/mL normal Refer ence Range Low: <3.4 Borde rline : 3.4-5 .4 Lynn l: >5.4 Not Available [facility] [address] [address] [place], [address], 10/31/2022 19:37:59 10/24/20 22 10/31/2022 CORTI VIKAS, A.M. cortisol, A.M. 20.6 mcg/d L normal Refer ence Range 8 a.m. (7-9 a.m.) Speci men: 4.0-2 2.0 Not Available [facility] [address] [address] [place], [address], 10/31/2022 19:37:59 10/24/20 22 10/31/2022 INSUL IN [...] (dete john, gluli sine) . Not Available [facility] [address] [address] [place], [address], 10/31/2022 19:37:58 10/24/20 22 10/31/2022 C-PEP TIDE C-peptide 1.33 NG/mL 0.80-3 .85 normal Not Available [facility] [address] [address] [place], [address], 10/31/2022 19:37:58 10/24/20 22 10/31/2022 THYRO ID PEROX IDASE ANTIB ODIES thyroid peroxidase antibodies 1 IU/mL <9 normal Not Available [facility] [address] [address] [place], [address], 10/31/2022 19:37:57 10/24/20 22 10/31/2022 IA-2 ANTIB NIURKA ia-2 antibody <5.4 U/mL <5.4 This test was perfo rmed using the IA-2 Antib niurka SHIVA metho d which is stand sandra padilla st the WHO Refer ence Reage nt 97/55 0. The refer ence range repor jaswant was estab lishe d speci fical ly for this test metho d. Not Available [address], [address], 10/31/2022 19:37:57 10/24/20 22 10/31/2022 CBC (INCL UDES DIFF/ PLT) white blood cell count 4.9 thous and/u L 3.8-10 .8 normal Not Available [address], [address], 10/31/2022 19:37:56 10/24/20 22 10/31/2022 CBC (INCL UDES DIFF/ PLT) red blood cell count 3.90 aristides on/uL 3.80-5 .10 normal Not Available [address], [address], 10/31/2022 19:37:56 10/24/20 22 10/31/2022 CBC (INCL UDES DIFF/ PLT) hemoglobin 13.0 g/dL 11.7-1 5.5 normal Not Available [address], [address], 10/31/2022 19:37:56 10/24/20 22 10/31/2022 CBC (INCL UDES DIFF/ PLT) hematocrit 37.9 % 35.0-4 5.0 normal Not Available [address], [address], 10/31/2022 19:37:56 10/24/20 22 10/31/2022 CBC (INCL UDES DIFF/ PLT) MCV 97.2 fL 80.0-1 00.0 normal Not Available [address], [address], 10/31/2022 19:37:56 10/24/20 22 10/31/2022 CBC (INCL UDES DIFF/ PLT) MCH 33.3 pg 27.0-3 3.0 high Not Available [address], [address], 10/31/2022 19:37:56 10/24/20 22 10/31/2022 CBC (INCL UDES DIFF/ PLT) MCHC 34.3 g/dL 32.0-3 6.0 normal Not Available [address], [address], 10/31/2022 19:37:56 10/24/20 22 10/31/2022 CBC (INCL UDES DIFF/ PLT) RDW 12.0 % 11.0-1 5.0 normal Not Available [address], [address], 10/31/2022 19:37:56 10/24/20 22 10/31/2022 CBC (INCL UDES DIFF/ PLT) platelet count 274 thous and/u L 140-40 0 normal Not Available [address], [address], 10/31/2022 19:37:56 10/24/20 22 10/31/2022 CBC (INCL UDES DIFF/ PLT) MPV 10.8 fL 7.5-12 .5 normal Not Available [address], [address], 10/31/2022 19:37:56 10/24/20 22 10/31/2022 CBC (INCL UDES DIFF/ PLT) absolute neutrophils 2808 cells /uL 1500-7 800 normal Not Available [address], [address], 10/31/2022 19:37:56 10/24/20 22 10/31/2022 CBC (INCL UDES DIFF/ PLT) absolute lymphocytes 1186 cells /uL 850-39 00 normal Not Available [address], [address], 10/31/2022 19:37:56 10/24/20 22 10/31/2022 CBC (INCL UDES DIFF/ PLT) absolute monocytes 500 cells /uL 200-95 0 normal Not Available [address] [place], [address], 10/31/2022 19:37:56 10/24/20 22 10/31/2022 CBC (INCL UDES DIFF/ PLT) absolute eosinophils 368 cells /uL 15-500 normal Not Available [address], [address], 10/31/2022 19:37:56 10/24/20 22 10/31/2022 CBC (INCL UDES DIFF/ PLT) absolute basophils 39 cells /uL 0-200 normal Not Available [address], [address], 10/31/2022 19:37:56 10/24/20 22 10/31/2022 CBC (INCL UDES DIFF/ PLT) neutrophils 57.3 % normal Not Available [address], [address], 10/31/2022 19:37:56 10/24/20 22 10/31/2022 CBC (INCL UDES DIFF/ PLT) lymphocytes 24.2 % normal Not Available [address], [address], 10/31/2022 19:37:56 10/24/20 22 10/31/2022 CBC (INCL UDES DIFF/ PLT) monocytes 10.2 % normal Not Available [address], [address], 10/31/2022 19:37:56 10/24/20 22 10/31/2022 CBC (INCL UDES DIFF/ PLT) eosinophils 7.5 % normal Not Available [address], [address], 10/31/2022 19:37:56 10/24/20 22 10/31/2022 CBC (INCL UDES DIFF/ PLT) basophils 0.8 % normal Not Available [address], [address], 10/31/2022 19:37:56 10/24/20 22 10/31/2022 ALDOS RONAK [...] been deter mined by [facility] bonifacio Dwyeri jason Bills . It has not been clear ed or appro cirstopher by FDA. This assay has been valid ated pursu ant to the CLIA regul ation s and is used for clini joby purpo ses. Not Available [facility] [address], [address], 10/31/2022 19:37:56 10/24/20 22 10/31/2022 ALDOS RONAK E/KWAN SMA RENIN ACTIV ITY RATIO ,LC/M S/MS plasma renin activity, lc/MS/MS 0.78 NG/mL /h 0.25-5 .82 Not Available [facility] [address], [address], 10/31/2022 19:37:56 10/24/20 22 10/31/2022 ALDOS RONAK E/KWAN SMA RENIN ACTIV ITY RATIO ,LC/M S/MS margarito/pra ratio 3.8 ratio 0.9-28 .9 Not Available [facility] [address] [place], [address], 10/31/2022 19:37:56 10/24/20 22 10/31/2022 TSI (THYR OID STIMU LATIN G IMMUN OGLOB ULIN) tsi <89 %_bas padma <140 Thyro id stimu latin g immun oglob ulins (TSI) can engag e the TSH aviation project manager tors resul ting in hyper thyro idism [...] fere with the TSI bioas say and potioana islas y give false posit citlalli resul ts. [...] . The emmanuel tical perfo rmanc e susan cteri stics of this assay have been deter mined by [facility] bonifacio barger [employer] . The modif icati ons have not been clear ed or appro cristopher by the FDA. This assay has been valid ated pursu ant to the CLIA regul ation s and is used for clini joby purpo ses. Not Available [facility] [address] [address] [place], [address], 10/31/2022 19:37:56 10/24/20 22 10/31/2022 GLUTA HUONG ACID DECAR BOXYL ASE 65 AB glutamic acid decarboxylas e 65 Ab <5 IU/mL <5 This test was perfo rmed using the GAD65 SHIVA metho d, which is stand ardiz ed again st the Inter natio nal refer ence prepa ratio n 97/55 0. Not Available [facility] [address] [address] [place], [address], 10/31/2022 19:37:55 10/24/20 22 10/31/2022 IODIN E, SERUM /PLAS MA iodine, serum/plasma 53 mcg/L 52-109 This test was devel oped and its emmanuel tical perfo rmanc e susan cteri stics have been deter mined by [facility] bonifacio gomez [place], [place]. It has not been clear ed or appro cristopher by the U.S. Food and Drug Admin istra tion. This assay has been valid ated pursu ant to the CLIA regul ation s and is used for clini joby purpo ses. Not Available [facility] [address] [address] [place], [address], 10/31/2022 19:37:55 10/24/20 22 10/31/2022 ACTH, PLASM A acth, plasma 18 pg/mL 6-50 Refer ence range appli es only to speci mens colle cted betwe en 7am-1 0am. Not Available [facility] [address] [address] [place], [address], 10/31/2022 19:37:54 10/24/20 22 10/31/2022 COMPR EHENS CITLALLI METAB OLIC PANEL glucose 81 mg/dL 65-99 normal Fasti ng refer ence inter digna Not Available [address] [address] [place], [address], 10/31/2022 19:37:54 10/24/20 22 10/31/2022 COMPR EHENS CITLALLI METAB OLIC PANEL urea nitrogen (BUN) 12 mg/dL 7-25 normal Not Available [address] [address] [place], [address], 10/31/2022 19:37:54 10/24/20 22 10/31/2022 COMPR EHENS CITLALLI METAB OLIC PANEL creatinine 0.70 mg/dL 0.50-0 .96 normal Not Available [address] [address] [place], [address], 10/31/2022 19:37:54 10/24/20 22 10/31/2022 COMPR EHENS CITLALLI METAB OLIC PANEL eGFR 121 mL/mi n/1.7 3m2 > or = 60 normal The eGFR is based on the CKD-E PI 2020 equat ion. To calcu late the new eGFR from a previ ous Creat inine or Cysta gary C resul t, go to https :[email or web address] [email or web address] leiva/piter nava s/ kdoqi /gfr% 5Fcal culat or Not Available [address] [address] [place], [address], 10/31/2022 19:37:54 10/24/20 22 10/31/2022 COMPR EHENS CITLALLI METAB OLIC PANEL BUN/creatini ne ratio not applic able (calc ) 6-22 Not Available [address] [address] [place], [address], 10/31/2022 19:37:54 10/24/20 22 10/31/2022 COMPR EHENS CITLALLI METAB OLIC PANEL sodium 139 mmol/ L 135-14 6 normal Not Available [address] [address] [place], [address], 10/31/2022 19:37:54 10/24/20 22 10/31/2022 COMPR EHENS CITLALLI METAB OLIC PANEL potassium 4.1 mmol/ L 3.5-5. 3 normal Not Available [address], [address], 10/31/2022 19:37:54 10/24/20 22 10/31/2022 COMPR EHENS CITLALLI METAB OLIC PANEL chloride 104 mmol/ L 98-110 normal Not Available [address], [address], 10/31/2022 19:37:54 10/24/20 22 10/31/2022 COMPR EHENS CITLALLI METAB OLIC PANEL carbon dioxide 26 mmol/ L 20-32 normal Not Available [address], [address], 10/31/2022 19:37:54 10/24/20 22 10/31/2022 COMPR EHENS CITLALLI METAB OLIC PANEL calcium 9.5 mg/dL 8.6-10 .2 normal Not Available [address], [address], 10/31/2022 19:37:54 10/24/20 22 10/31/2022 COMPR EHENS CITLALLI METAB OLIC PANEL protein, total 6.9 g/dL 6.1-8. 1 normal Not Available [address], [address], 10/31/2022 19:37:54 10/24/20 22 10/31/2022 COMPR EHENS CITLALLI METAB OLIC PANEL albumin 4.3 g/dL 3.6-5. 1 normal Not Available [address], [address], 10/31/2022 19:37:54 10/24/20 22 10/31/2022 COMPR EHENS CITLALLI METAB OLIC PANEL globulin 2.6 g/dL_ (calc ) 1.9-3. 7 normal Not Available [address], [address], 10/31/2022 19:37:54 10/24/20 22 10/31/2022 COMPR EHENS CITLALLI METAB OLIC PANEL albumin/glob ulin ratio 1.7 (calc ) 1.0-2. 5 normal Not Available [address], [address], 10/31/2022 19:37:54 10/24/20 22 10/31/2022 COMPR EHENS CITLALLI METAB OLIC PANEL bilirubin, total 0.4 mg/dL 0.2-1. 2 normal Not Available [address], [address], 10/31/2022 19:37:54 10/24/20 22 10/31/2022 COMPR EHENS CITLALLI METAB OLIC PANEL alkaline phosphatase 83 U/L 31-125 normal Not Available [address], [address], 10/31/2022 19:37:54 10/24/20 22 10/31/2022 COMPR EHENS CITLALLI METAB OLIC PANEL AST 22 U/L 10-30 normal Not Available [address], [address], 10/31/2022 19:37:54 10/24/20 22 10/31/2022 COMPR EHENS CITLALLI METAB OLIC PANEL ALT 23 U/L 6-29 normal Not Available [address], [address], 10/31/2022 19:37:54 10/24/20 22 10/31/2022 IRON AND TOTAL IRON NOHEMI NG CAPAC ITY iron, total 65 mcg/d L 40-190 normal Not Available [address], [address], 10/31/2022 19:37:54 10/24/20 22 10/31/2022 IRON AND TOTAL IRON NOHEMI NG CAPAC ITY iron binding capacity 358 mcg/d L_(ca lc) 250-45 0 normal Not Available [facility] [address] [place], [address], 10/31/2022 19:37:54 10/24/20 22 10/31/2022 IRON AND TOTAL IRON NOHEMI NG CAPAC ITY % saturation 18 %_(ca lc) 16-45 normal Not Available [facility] [address] [place], [address], 10/31/2022 19:37:54 02/25/20 23 02/24/2023 GLUCO SE KYLEIGH ANCE 2HR dose 75 gms Not Available [facility] (Lab) [address] [place], [address], 02/24/2023 17:49:18 02/25/20 23 02/24/2023 GLUCO SE KYLEIGH ANCE 2HR fasting glucose 84 mg/dL 70-105 Not Available [facility] (Lab) [address] [place], [address], 02/24/2023 17:49:18 02/25/20 23 02/24/2023 GLUCO SE [...] (IF SYMPT OMS ARE PRESE NT) (REFE KENNEY : CELINA PAYNE [facility]) Not Available [facility] (Lab) [address] [place], [address], 02/24/2023 17:49:18 02/25/20 23 02/24/2023 GLUCO SE KYLEIGH ANCE 2HR 2 hour glucose 98 mg/dL -140 Not Available [facility] (Lab) [address] [place], [address], 02/24/2023 17:49:18 09/06/20 22 08/27/2022 XR, cervi joby spine , 4 or 5 view No observ ation record ed. [id number] Not Available 01/16/2023 01:49:49 09/06/20 22 08/27/2022 XR, shoul katelyn No observ ation record ed. [id number] Not Available 01/16/2023 01:49:49 12/23/19 23 12/23/2022 US, thyro id No observ ation record ed. [id number] [facility] [address] [place], [address], 01/16/2023 01:49:49 12/23/19 23 12/23/2022 US, head + neck, soft tissu e [facility] [address] [place], [place] [id number] Patien t Name: IRINA CUBA Lizzette Access ion #: [id number] Sex: F : 1994 6 Locati [...] 4.9 x 1.7 x Page 1 of 2 [facility] t Name: IRINA CUBA Access ion #: [id number] Sex: F : 1994 6 Exam Date: 12/23/19 2:37 PM Exam Name: US NECK HEAD [...] MD (CT) (CT) Page 2 of 2 [id number] [facility] (Imaging) [address] [place], [address], 01/16/2023 01:49:49 09/13/2009/10/2025 XR, forea rm No observ ation record ed. [email or web address] Not Available 08/18 11:28:36 Result Notes None recorded. Problems Name Problem SNOMED Code Status Onset Date Resolution Date Notes Provider Name and Address Organization Details Recorded Time Celiac disease 799122119 Active Not Available [facility] 3 01:48:40 Gastroesop hageal reflux disease without esophagiti s 568531419 Active 2021 Not Available [facility] 3 01:48:40 Specialize d medical examinatio n Active 2021 Not Available [facility] 3 01:48:40 Dizziness 303289751 Active 2021 Not Available [facility] 3 01:48:40 Dizziness of unknown cause 818900723 Active 2021 Not Available [facility] 3 01:48:40 Thyroid nodule 213808522 Active 2022 Ramirez Barnes MD [address], [place], [address] , [facility] 3 16:58:52 Unintentio nal weight loss 354704995 Active 2022 Ramirez Barnes MD [address], [place], [address] , [employer] [facility] [facility] 3 16:59:58 Pain of right forearm 004975618 Active 2024 ALFRED Segura, [employer] [facility] 5 11:01:24 Pain of right wrist 9297121075539 00 Active 2024 Jasmine Barth null, [employer] [facility] 5 11:25:31 Fracture of distal end of right radius 0406700763392 4100 Active 2024 RUBEN Yu [address], [place], [address] , [employer] [facility] 5 12:16:40 Problem Notes None recorded. Procedures Surgical History Date Name Laterality Status Provider Name and Address Organization Details Recorded Time other completed Jaci Mast CNA [place] [facility] 09/15/2025 11:00:34 Imaging Results None recorded. Procedure Notes None recorded. Medical Equipment None Reported. Allergies No known drug allergies Medications Name Sig Start Date Stop Date Status Note LastModified by Organization Details LastModified Time celecoxib 200 mg capsule TAKE 1 CAPSULE BY MOUTH EVERY 12 HOURS NEEDED. TAKE WITH FOOD. 09/15 completed Not Available Not Available Not Available cyclobenzap rine 10 mg tablet TAKE 1 TABLET BY MOUTH TWICE DAILY NEEDED FOR MUSCLE SPASMS OR PAIN. DO NOT DRIVE OR OPERATE HEAVY MACHINERY WHILE TAKING MEDICATIO N 09/15 completed Not Available Not Available Not Available fluconazole 100 mg tablet 02/25 completed Not Available Not Available Not Available methocarbam ol 500 mg tablet TAKE 1 TABLET BY MOUTH EVERY 8 HOURS 09/15 completed Not Available Not Available Not Available [...] mg capsule TAKE 1 CAPSULE BY MOUTH THREE TIMES DAILY 09/14 completed Not Available Not Available Not Available fluconazole 150 mg tablet TAKE 1 TABLET BY MOUTH NOW AND 1 TABLET ON DAYS 2-5 09/15 completed Not Available Not Available Not Available fluconazole 200 mg tablet TAKE 1 TABLET BY MOUTH AT END OF ANTIBIOTI CS OR WHEN SYMPTOMS START AND 1 TABLET 72 HOURS LATER 09/15 completed Not Available Not Available Not Available metronidazo le 0.75 % (37.5 mg/5 gram) vaginal gel INSERT 1 APPLICATO RFUL VAGINALLY EVERY DAY AT BEDTIME FOR 5 DAYS 09/15 completed Not Available Not Available Not Available metronidazo le 500 mg tablet 09/15 completed Not Available Not Available Not Available hydroxyzine HCl 50 mg tablet TAKE 1 TABLET BY MOUTH THREE TIMES DAILY NEEDED FOR BREAKTHRO UGH ANXIETY 09/15 completed Not Available Not Available Not Available amlodipine 5 mg tablet TAKE 1 TABLET BY MOUTH DAILY FOR HIGH BLOOD PRESSURE active Not Available Not Available No t Available omeprazole 40 mg capsule,del ayed release TAKE 1 CAPSULE BY MOUTH DAILY active Not Available Not Available No t Available famotidine 20 mg tablet TAKE 1 TABLET BY MOUTH TWICE DAILY active Not Available Not Available No t Available methocarbam ol 750 mg tablet TAKE 1 TABLET BY MOUTH AT BEDTIME FOR JAW PAIN 09/15 completed Not Available Not Available Not Available [...] completed Not Available Not Available Not Available sertraline 25 mg tablet TAKE 1 TABLET BY MOUTH DAILY FOR ANXIETY 09/15 completed Not Available Not Available Not Available montelukast 10 mg tablet TAKE 1 TABLET BY MOUTH EVERY DAY AT BEDTIME FOR ASTHMA 02/25 completed Not Available Not Available Not Available ibuprofen 600 mg tablet 12/12 completed Not Available Not Available Not Available methylpredn isolone 4 mg tablets in a dose pack FOLLOW PACKAGE DIRECTION S 09/15 completed Not Available Not Available Not Available albuterol sulfate HFA 90 mcg/actuati on aerosol inhaler INHALE 2 PUFFS BY MOUTH EVERY 6 HOURS NEEDED FOR WHEEZING active Not Available Not Available No t Available celecoxib 100 mg capsule TAKE 1 CAPSULE BY MOUTH EVERY DAY FOR LEFT SHOULDER PAIN 09/15 completed Not Available Not Available Not Available ondansetron 4 mg disintegrat ing tablet DISSOLVE 1 TABLET ON THE TONGUE EVERY DAY FOR 7 DAYS 09/15 completed Not Available Not Available Not Available sertraline 50 mg tablet TAKE 1 TABLET BY MOUTH DAILY 09/15 completed Not Available Not Available Not Available naproxen 500 mg tablet TAKE 1 TABLET BY MOUTH TWICE DAILY WITH FOOD 09/15 completed Not Available Not Available Not Available amoxicillin 875 mg-potassiu m clavulanate 125 mg tablet TAKE 1 TABLET BY MOUTH EVERY 12 HOURS FOR 10 DAYS 09/15 completed Not Available Not Available Not Available escitalopra m 10 mg tablet TAKE 1 TABLET BY MOUTH DAILY 09/15 completed Not Available Not Available Not Available escitalopra m 20 mg tablet TAKE 1 TABLET BY [...] % 72 /min 12 /min 98.6 [degF] 96385.6 1 g Not Available [facility] 3 01:48:04 Date Recorded Body mass index (BMI) Body height Oxygen saturation Oxygen saturation in Arterial blood by Pulse oximetry Heart rate Body temperature Body weight Systolic And Diastolic Provider Name and Address Organization Details Last Updated DateTime 2 19.2 kg/m2 162.56 cm 98 % 98 % 79 /min 97.2 [degF] 87385.3 5 g 104/72 mm[Hg] Not Available [facility] 3 01:48:04 Date Recorded Body height Body mass index (BMI) Body weight Body temperature Respiratory rate Heart rate Systolic And Diastolic Provider Name and Address Organization Details Last Updated DateTime 3 162.56 cm 18.6 kg/m2 57219.6 9 g 97.6 [degF] 18 /min 62 /min 125/79 mm[Hg] ALLYN Chong [facility] 3 16:45:52 Date Recorded Body height Body mass index (BMI) Body weight Provider Name and Address Organization Details Last Updated DateTime 09/15/2025 162.56 cm 17.7 kg/m2 73593.01 g Jaci Mast CNA [employer] 09/15/2025 10:55:36 Date Recorded Body mass index (BMI) Body height Heart rate Body temperature Body weight Systolic And Diastolic Provider Name and Address Organization Details Last Updated DateTime 2 17.9 kg/m2 162.56 cm 90 /min 97.3 [degF] 98955.0 4 g 112/80 mm[Hg] Not Available [facility] 3 01:48:04 Social History Question Answer Notes LastModified by [employer] Details LastModified Time Tobacco Smoking Status Never Smoker Azalea Aiken RN [facility], [place] - [facility] [employer] [facility] 02/25/2023 16:31:28 What Is Your Level Of Caffeine Consumption? None [id number] Information not available 01/16/2023 In The [...] Type Of Diet Are You Following? REGULAR [id number] Information not available 01/16/2023 What Was The Date Of Your Most Recent Tobacco Screening? 09/15/2025 Information not available 09/15/2025 Have You Ever Been Counseled For Unhealthy Alcohol Use? No Information not available 02/25/2023 Do You Have Any Pets? No Information not available 02/25/2023 What Is Your Relationship Status? Single [id number] Information not available 01/16/2023 Do You Use Your Seat Belt Or Car Seat Routinely? Yes Information not available 02/25/2023 Have You Recently Traveled Abroad? No Information not available 02/25/2023 Do You Have Any Dietary Restrictions? No Information not available 02/25/2023 Sex: Female Functional Status Question Answer Note LastModified by Organizat [employer] Details LastModified Time Do you use any illicit or recreational drugs? No Information not available 02/25/2023 What is your level of alcohol consumption? 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
--- OUTSIDE RECORDS SUMMARY | 2025-09-28 09:56 | XMS_ITS | Encounter Summary ---
Author Organization [facility] Facility Care Team Providers Care Computer Specialist Name Role Phone Leigh Nagy MD Primary Care Provider Kamala Donis Primary Care Provider [phone] Davey Benton MD Unavailable [phone] No, Physician Primary Care Provider [phone] Fay Ayala ADJUNCT PSYCHOLOGY PROFESSOR Primary Care Provider [phone] Encounter Details Date Type Department Care Team (Latest Contact Info) Description 07/15/2017 Orders Only [facility] Provider, MD Rolando [address] [place] [address] Social History Tobacco Use Types Packs/Day Years Used Date Smoking Tobacco: Never Assessed Comments Unknown Sex and Gender Information Value Date Recorded Sex Assigned at Not on file 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 us Historical Provider Final Res ult documented in this encounter Visit Diagnoses Not on filedocumented in this encounter Care Teams Computer Specialist Relationship Specialty Start Date End Date Leigh Nagy MD [address] [place] [address] PCP - General 01/01/19 08/23/20 Kamala Donis PA [address] [place] [address] PCP - General Family Medicine 08/24/20 05/21/21 No, Physician PCP - General 05/24/21 11/13/23 Fay Ayala NP PCP - General Family Medicine 11/14/23 Davey Benton MD [address] [place] [address] Consulting Physician Family Medicine 08/24/20 05/21/21 documented as of this encounter
--- OUTSIDE RECORDS SUMMARY | 2025-09-28 09:56 | XMS_ITS | Encounter Summary ---
Author Organization [facility] Address [address] [place] [address] Care Team Providers Care Statistical Technician Name Role Phone Unavailable Primary Care Provider Unavailabl e Reason for Visit * Reason Onset Date Comments Patient Requested Call 01/20/2019 Encounter Details Date Type Department Care Team (Late st Contact Info) Description 01/20/2019 Telephone [facility] MAT[facility]NAL/ EVALUATION UNIT 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 Answer Date of Assessment Author No 06/06/2015 2:18 PM CDT Tati Kim ra, RN * Is person blind or have serious [...] Pt verbalized that she will attend appointment. ICIAN CODER documented in this encounter Plan of Treatment Not on file documented as of this encounter Visit Diagnoses Not on filedocumented in this encounter
--- OUTSIDE RECORDS SUMMARY | 2025-09-28 09:56 | XMS_ITS | Data Portability ---
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 Lab test, urine 2024 025 [email or web address] [facility], [address] [place], [address], 5 12:54:19 test, urine 2023 024 [email or web address] 1 [facility], [address] [place], [address], 4 12:22:26 bacterial vaginosis + vaginitis panel, vaginal 2022 023 [facility], [address] [place], [address], 3 09:27:26 biopsy, tissue - ecc 2022 023 [email or web address] 6 [facility], [address] [place], [address], 3 15:14:00 biopsy, tissue - 11 o'clock 2022 023 SOTERO [facility], [address] [place], [address], 3 16:48:30 biopsy, tissue - 1 o'clock 2022 023 [email or web address] 6 [facility], [address] [place], [address], 3 15:14:01 biopsy, tissue - 4 o'clock 2022 023 [email or web address] 6 [facility], [address] [place], [address], 3 15:14:01 biopsy, tissue - 7 o'clock 2022 023 [email or web address] 6 [facility], [address] [place], [address], 3 15:14:01 test, urine 2022 023 0 [facility], [address] [place], [address], 3 13:17:33 bacterial vaginosis + vaginitis panel, vaginal 2022 023 [facility], [address] [place] [address], [address], 3 15:55:07 pap, LB 2022 023 SOTERO [facility], [address] [place], [address], 3 11:31:20 unlisted lab - Pap reflex hold 2022 023 [email or web address] [facility], [address] [place], [address], 3 16:26:17 Referral None recorded. Procedures None recorded. Surgeries None recorded. Imaging US, transvagina l 2024 025 SOTERO [facility], [address] [place], [address], 5 14:39:11 US, transvagina l 2023 024 [email or web address] [facility], [address] [place], [address], 4 12:16:41 Medication Orders Vitamins with Minerals 28 mg iron-800 mcg tablet 2023 024 [email or web address] 8 [facility], [address], [place], [place], [id number], 5 12:45:46 clindamycin HCl 300 mg capsule 2022 023 [email or web address] 8 [facility]84[facility], [address], [place], [place], [id number], 5 12:44:48 fluconazole 150 mg tablet 2022 023 [email or web address] 1 [facility]06206, [address], [place], [place], [id number], 3 13:28:18 Patient TargetsNo targets recorded. Patient Instructions Encounter Date Encounter Id Patient Instructions Last Modified By Organization Details Last Modified Time 02/19/2023 [id number] learning about dietary guidelines Not available 02/19/2023 14:46:49 eating healthy foods: care instructions Not available 02/19/2023 14:46:49 bacterial vaginosis: care instructions Not available 02/19/2023 14:46:49 04/03/2023 [id number] vaginitis: care instructions [email or web address] Not available 04/03/2023 15:03:01 11/19/2023 [id number] gluten-free diet: care instructions Not available 11/25/2023 [...] BV POS negati ve abnormal Not Available [facility] [address] [place], [address], 02/21/2023 15:55:07 02/20/2002/21/2023 VAGIN ITIS PLUS STD PANEL adam species C. spp neg negati ve normal Not Available [address], [address], 02/21/2023 15:55:07 02/20/20 23 02/21/2023 VAGIN ITIS PLUS STD PANEL adam glabrata C. gla neg negati ve normal Not Available [address], [address], 02/21/2023 15:55:07 02/20/20 23 02/21/2023 VAGIN ITIS PLUS STD PANEL trichomonas vaginalis CV/TV TRICH neg negati ve normal Not Available [address], [address], 02/21/2023 15:55:07 02/20/20 23 02/21/2023 VAGIN ITIS PLUS STD PANEL chlamydia trachomatis CT neg negati ve normal This repor t is inten ded for us in clini joby monit oring and manag ement of [facility]. It is not inten ded for use in medic al-le gal appli catio n. Not Available [address], [address], 02/21/2023 15:55:07 02/20/20 23 02/21/2023 VAGIN ITIS PLUS STD PANEL neisseria gonorrhoeae GC neg negati ve normal This repor t is inten ded for us in clini joby monit oring and manag ement of patie nts. It is not inten ded for use in medic al-le gal appli catio n. Not Available [address], [address], 02/21/2023 15:55:07 02/20/20 23 02/28/2023 THINP REP TIS PAP clinical information: normal None given Not Available [email or web address] [facility] [address] [place], [address], 02/28/2023 11:31:20 02/20/20 23 02/28/2023 THINP REP TIS PAP LMP: normal None given Not Available [facility] [address] [place], [address], 02/28/2023 11:31:20 02/20/20 23 02/28/2023 THINP REP TIS PAP prev. Pap: normal None given Not Available [address] [place], [address], 02/28/2023 11:31:20 02/20/20 23 02/28/2023 THINP REP TIS PAP prev. BX: normal None given Not Available [address], [address], 02/28/2023 11:31:20 02/20/20 23 02/28/2023 THINP REP TIS PAP source: normal Cervi x Not Available [address], [address], 02/28/2023 11:31:20 02/20/20 23 02/28/2023 THINP REP TIS PAP statement of adequacy: normal Satis facto ry for evalu ation . Endoc ervic al/tr ansfo rmati on zone compo nent prese nt. 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 To steven t in maint vinay flannery the highe st degre e of accur acy and corre latio n betwe en cytol ogic and histo logic findi ngs, pleas e forwa rd follo w-up data for subse quent biops ies perfo rmed by any other non-Q uest labor atory . Not Available [email or web address] [address] [address] [place], [address], 02/28/2023 11:31:20 02/20/20 23 02/28/2023 THINP REP TIS PAP cytotechnolo gist: normal MVB, CT( CP) CT Scree sara Locat ion: [address] [address] [place] [address] Not Available [email or web address] [address] [address] [place], [address], 02/28/2023 11:31:20 02/20/20 23 02/28/2023 THINP REP TIS PAP pathologist: normal Lynn bass M.D., Board Certi fied in Anato syd Patho logy and Cytop athol ogy. Phone : [phone] (elec troni c signa ture) Not Available [email or web address] [address] [address] [place], [address], 02/28/2023 11:31:20 02/20/20 23 02/28/2023 THINP REP [...] clini joby infor matio n. Not Available [address] [address] [place], [address], 02/28/2023 11:31:20 03/24/20 23 03/27/2023 TISSU E PATHO LOGY clinical information Abnor mal Papan icola ou smear Not Available [facility] [address] [address] [place], [address], 03/27/2023 16:48:29 03/24/20 23 03/27/2023 TISSU E PATHO LOGY pathologist Ann mahoney M.D., Board Certi fied in Anato syd Patho logy and Clini joby Patho logy [phone] (elec troni c signa ture) Not Available [facility] [address] [address] [place], [address], 03/27/2023 16:48:29 03/24/20 23 03/27/2023 TISSU E [...] rmanc e of the test. Not Available [facility] [address] [address] [place], [address], 03/27/2023 16:48:29 03/24/20 23 03/27/2023 TISSU E PATHO LOGY A source Endoc ervix , curet tage Not Available [facility] [address] [address] [place], [address], 03/27/2023 16:48:29 03/24/20 23 03/27/2023 TISSU E [...] [facility] [address] [place] [address] [place], [place] [address] Labor atory Direc tor: KAYLEY Mahoney MD Not Available [facility] [address] [address] [place], [address], 03/27/2023 16:48:29 03/24/20 23 03/27/2023 TISSU E PATHO LOGY A diagnosis Fragm ents of benig n endoc ervic al epith elium with mucus . Not Available [facility] [address] [address] [place], [address], 03/27/2023 16:48:29 03/24/20 23 03/27/2023 TISSU E PATHO LOGY B source Cervi x, 11 o'ethel ck, biops y Not Available [facility] [address] [address] [place], [address], 03/27/2023 16:48:29 03/24/20 23 03/27/2023 TISSU E [...] one casse tte. Not Available [facility] [address] [address] [facility] [place], [address], 03/27/2023 16:48:29 03/24/20 23 03/27/2023 TISSU E PATHO LOGY B diagnosis Mild chron ic cervi citis . There is no evide nce of dyspl tita. Not Available [facility] [address] [address] [address] , [place], [address], 03/27/2023 16:48:29 03/24/20 23 03/27/2023 TISSU E PATHO LOGY C source Cervi x, 1 o'ethel ck, biops y Not Available [facility] [address] [place], [address], 03/27/2023 16:48:29 03/24/20 23 03/27/2023 TISSU E [...] one casse tte. Not Available [facility] [address] [address] [address], [place], [address], 03/27/2023 16:48:29 03/24/20 23 03/27/2023 TISSU E PATHO LOGY C diagnosis Low-g rade squam ous intra epith elial lesio n (АЛЕКСАНДР 1). Not Available [facility] [address] [address] [place], [address], 03/27/2023 16:48:29 03/24/20 23 03/27/2023 TISSU E PATHO LOGY C comment Low-g rade disea se partl y invol ves atypi joby squam ous metap lasia ; speci al stain ing (p16) suppo rts the diagn osis (all posit divine and requi red negat divine contr ols stain ed appro priat brandon). Not Available [facility] [address] [address] [place], [address], 03/27/2023 16:48:29 03/24/20 23 03/27/2023 TISSU E PATHO LOGY D source Cervi x, 4 o'ethel ck, biops y Not Available [facility] [address] [place], [address], 03/27/2023 16:48:29 03/24/20 23 03/27/2023 TISSU E [...] one casse tte. Not Available [facility] [address] [address] [address] , [place], [address], 03/27/2023 16:48:29 03/24/20 23 03/27/2023 TISSU E PATHO LOGY D diagnosis Low-g rade squam ous intra epith elial lesio n (АЛЕКСАНДР 1). Not Available [facility] [address] [address] [place], [address], 03/27/2023 16:48:29 03/24/2003/27/2023 TISSU E PATHO LOGY D comment A small focus of low-g rade disea se is noted . Trans forma tion zone not ident ified . Not Available [facility] [address] [address] [place], [address], 03/27/2023 16:48:29 03/24/20 23 03/27/2023 TISSU E PATHO LOGY E source Cervi x, 7 o'ethel ck, biops y Not Available [address], [address], 03/27/2023 16:48:29 03/24/20 23 03/27/2023 TISSU E [...] tted in one casse tte. Not Available [address], [address], 03/27/2023 16:48:29 03/24/20 23 03/27/2023 TISSU E PATHO LOGY E diagnosis Low-g rade squam ous intra epith elial lesio n (АЛЕКСАНДР 1). Not Available [address], [address], 03/27/2023 16:48:29 03/24/20 23 03/27/2023 TISSU E PATHO LOGY E comment Trans forma tion zone not ident ified . Not Available [address], [address], 03/27/2023 16:48:29 03/24/20 23 03/24/2023 pregn david test, urine HCG negati ve Not Available [facility] [address] [facility], [place], [address], 03/24/2023 13:16:55 04/03/20 23 04/07/2023 VAGIN ITIS PANEL bacterial vaginosis BV POS negati ve abnormal Not Available [address], [address], 04/08/2023 09:27:26 04/03/20 23 04/07/2023 VAGIN ITIS PANEL adam species C. spp neg negati ve normal Not Available [address], [address], 04/08/2023 09:27:26 04/03/20 23 04/07/2023 VAGIN ITIS PANEL adam glabrata C. gla neg negati ve normal Not Available [address], [address], 04/08/2023 09:27:26 04/03/20 23 04/07/2023 VAGIN ITIS PANEL trichomonas vaginalis CV/TV TRICH neg negati ve normal Not Available [address], [address], 04/08/2023 09:27:26 11/19/19 24 11/19/2023 pregn david test, urine HCG positi ve Not Available [address], [address], 11/18/2023 10:35:24 09/06/20 25 09/06/2025 pregn david test, urine HCG positi ve Not Available [address], [address], 09/06/2025 12:06:54 11/21/19 24 11/19/2023 US, trans vagin al No observ ation record ed. [email or web address] Irena [address] [address], [place], [address], 11/25/2023 13:45:16 09/06/20 25 09/06/2025 US, trans vagin al No observ ation record ed. [email or web address] [facility] [address], [address], 09/06/2025 15:13:05 Result Notes None recorded. Problems Name Problem SNOMED Code Status Onset Date Resolution Date Notes Provider Name and Address Organization Details Recorded Time Leukorrh ea 695989677 Completed 201308/18/2014 Physiolo gic vaginal discharg e; Progress : Stable Added By: Liana Ernst Add to Current Problems : NO ProblemS tatus: Resolve Vaginal Discharg e; Progress : Stable Added By: Darryn Sanford Add to Current Problems : NO ProblemS tatus: Resolve; Start Date : 04/29/20 14 Not Available [employer] 2 19:46:28 Pregnanc y, childbir th and puerperi um finding Completed 201702/19/2023 Encounte r for supervis ion of normal first pregnanc y, first trimeste r; Progress : Stable Added By: Nancy Narvaez Add to Current Problems : YES ProblemS tatus: Current Ayla Britsch null, [place] [facility] 3 02:09:45 Gestatio n period, 9 weeks 911198 Completed 201702/19/2023 9 weeks gestatio n of pregnanc y; Progress : Stable Added By: Nancy Narvaez Add to Current Problems : YES ProblemS tatus: Current Ayla Britsch null, [place] [facility] 3 02:09:59 Antenata l screenin g Completed 201702/19/2023 Encounte r for other specifie d antenata l screenin g; Progress : Stable Added By: Nancy Narvaez Add to Current Problems : YES ProblemS tatus: Current Ayla Britsch null, [place] [facility] 3 02:09:34 Syphilis test finding 053109420 Completed 201902/19/2023 Encounte r for screenin g for infectio ns with a predomin antly sexual mode of transmis asad; Progress : Stable Added By: Luther Lewis Add to Current Problems : YES ProblemS tatus: Current Ayla Britsch null, [place] [facility] 3 02:09:47 Sampling of vagina for Papanico laou smear Completed 201902/19/2023 Encounte r for gynecolo gical examinat ion (general ) (routine ) without abnormal findings ; Progress : Stable Added By: Arianna Lindsay Add to Current Problems : YES ProblemS tatus: Current Ayla Britsch null, [place] [facility] 3 02:09:50 Acute vaginiti s 83239705 Completed 201902/19/2023 Acute vaginiti s; Progress : Stable Added By: Luther Lewis Add to Current Problems : YES ProblemS tatus: Current Ayla Britsch null, [place] [facility] 3 02:09:36 Screenin g for malignan t neoplasm of cervix Completed 201908/10/2023 Encounte r for screenin g for malignan t neoplasm of cervix; Progress : Stable Added By: Arianna Lindsay Add to Current Problems : YES ProblemS tatus: Current Ayla Britsch null, [place] [facility] 3 23:36:17 Vaginola bial hernia Completed 201902/19/2023 Other specifie d noninfla mmatory disorder s of vagina; Progress : Stable Added By: Cornelia Brock Add to Current Problems : YES ProblemS tatus: Current Ayla Britsch null, [place] [facility] 3 02:09:42 Atypical squamous cells of undeterm ined signific ance on cervical Papanico laou smear 479766013 Completed 201902/19/2023 Atypical squamous cells of undeterm ined signific ance on cytologi c smear of cervix (ASC-US) ; Progress : Stable Added By: Luther Lewis Add to Current Problems : YES ProblemS tatus: Current Ayla Britsch null, [place] [facility] 3 02:09:53 Human papillom avirus deoxyrib onucleic acid detected , high risk on cervical specimen 746231969 Completed 201902/19/2023 Cervical high risk human papillom avirus (HPV) DNA test positive ; Progress : Stable Added By: Luther Lewis Add to Current Problems : YES ProblemS tatus: Current Ayla lee, [facility] [employer] IV 3 02:09:56 Bacteria l vaginosi s 615733320 Active 2022 Luther Garcialinda, [address], [address] , [facility] [employer] IV 3 14:46:27 Celiac disease 813697085 Active 2023 Kellygaby Lewis, [address], [address] , [facility] [employer] [facility] IV 4 12:23:27 Multinod ular goiter 569114035 Active 2023 Luther Garcialinda, [address], [address] , [facility] 4 17:29:39 Thyroid nodule 448699552 Active 2023 Kellygaby Lewis, [address], [address] , [facility] [employer] IV 4 17:29:54 Problem Notes None recorded. Procedures Surgical History Date Name Laterality Status Provider Name and Address Organization Details Recorded Time 3 Colposcopy - Cervix completed Beatrice Ayala [address], [address], [facility] [employer] [facility] 03/24/2023 13:15:27 3 Date of Last Pap Smear completed Ayla Sanchez [facility] [employer] [facility] 08/10/2023 23:37:17 Imaging Results None recorded. Procedure Notes None recorded. Medical Equipment None Reported. Allergies Allergen ID Allergen Name Allergen Category Reaction Reaction Severity Criticality Documentation Date Start Date Code Code System Note Provider Name and Address Organization Details Recorded Time 566747 wheat gluten extract food Not available Not available low 09/06/20252022 39156 81 RxNorm Candy c disea se unrec ogniz ed react ion (text : Other , code: 88344 07) (from exter nal [facility] e) Not Available [employer] - External Data Service - prod 03:59:21 150754 latex environme nt,medica tion rash Not available high 09/06/20252023 10464 91 RxNorm Not Available [employer] - External Data Service - prod 03:59:45 Medications Name Sig Start Date Stop Date Status Note LastModified by Organization Details LastModified Time celecoxib 200 mg capsule TAKE 1 CAPSULE BY MOUTH EVERY 12 HOURS NEEDED. TAKE WITH FOOD. 09/06 completed Not Available Not Available Not Available cyclobenz aprine 10 mg tablet TAKE 1 TABLET BY MOUTH TWICE DAILY NEEDED FOR MUSCLE SPASMS OR PAIN. DO NOT DRIVE OR OPERATE HEAVY MACHINER Y WHILE TAKING MEDICATI ON 09/06 completed Not Available Not Available Not Available fluconazo le 100 mg tablet 07/09 [...] completed Not Available Not Available Not Available labetalol 200 mg tablet active Not Available Not Available Not Available clindamyc in HCl 300 mg capsule TAKE 1 CAPSULE BY MOUTH TWICE DAILY 09/06 completed Not Available Not Available Not Available fluconazo le 150 mg tablet take 1 tablet (150 mg) by oral route once after completi on of antibiot ics if experien cing symptoms of yeast infectio n 03/20 completed Not Available Not Available Not Available fluconazo le 200 mg tablet TAKE 1 TABLET BY MOUTH AT END OF ANTIBIOT ICS OR WHEN SYMPTOMS START AND 1 TABLET 72 HOURS LATER 09/06 completed Not Available Not Available Not Available metronida zole 0.75 % (37.5 mg/5 gram) vaginal gel INSERT 1 APPLICAT ORFUL VAGINALL Y EVERY DAY AT BEDTIME FOR 5 DAYS 08/10 completed Not Available Not Available Not Available hydroxyzi ne HCl 50 mg tablet TAKE 1 TABLET BY MOUTH THREE TIMES DAILY NEEDED FOR BREAKTHR OUGH ANXIETY 09/06 completed Not Available Not Available Not Available amlodipin e 5 mg tablet TAKE 1 TABLET BY MOUTH DAILY FOR HIGH BLOOD PRESSURE 09/06 completed Not Available Not Available Not Available omeprazol e 40 mg capsule,d elayed release TAKE 1 CAPSULE BY MOUTH DAILY 09/06 completed Not Available Not Available Not Available tramadol 50 mg tablet TAKE 1 [...] BY MOUTH AT BEDTIME FOR JAW PAIN active Not Available Not Available No [...] TAKE 1 CAPSULE BY MOUTH TWICE DAILY 09/06 completed Not Available Not Available Not Available docusate sodium 100 mg capsule TAKE 1 CAPSULE BY MOUTH EVERY DAY 09/06 completed Not Available Not Available Not Available sertralin e 25 mg tablet TAKE 1 TABLET BY MOUTH DAILY FOR ANXIETY 09/06 completed Not Available Not Available Not Available monteluka st 10 mg tablet TAKE [...] MOUTH DAILY AT SAME TIME EVERY DAY 09/06 completed Not Available Not Available Not Available celecoxib 100 mg capsule TAKE 1 CAPSULE BY MOUTH EVERY DAY FOR LEFT SHOULDER PAIN 09/06 completed Not Available Not Available Not Available ondansetr on 4 mg disintegr ating tablet DISSOLVE 1 TABLET ON THE TONGUE EVERY DAY FOR 7 DAYS 09/06 completed Not Available Not Available Not Available clotrimaz ole 1 % topical cream APPLY GRAM TOPICALL Y TO THE AFFECTED AREA THREE TIMES DAILY 11/19 completed Not Available Not Available Not Available sertralin e 50 mg tablet TAKE 1 TABLET BY MOUTH DAILY 09/06 completed Not Available Not Available Not Available naproxen 500 mg tablet TAKE 1 TABLET BY MOUTH TWICE DAILY WITH FOOD 09/06 completed Not Available Not Available Not Available amoxicill in 875 mg-potass ium clavulana te 125 mg tablet TAKE 1 TABLET BY MOUTH EVERY 12 HOURS FOR 10 DAYS active Not Available Not Available No t Available escitalop jermaine 10 mg tablet TAKE 1 TABLET BY MOUTH DAILY active Not Available Not Available No t Available escitalop jermaine 20 mg tablet TAKE 1 TABLET BY MOUTH DAILY active Not Available Not Available No t Available Vitamins with Minerals 28 mg iron-800 mcg tablet Take 1 tablet every day by oral route for 30 days. 09/06 completed Not Available Not Available Not Available amlodipin e 02/19 completed amLODIPi ne RxNorm: 443299 Allow Substitu tion: False Refill Denied: No Refill DateOccu rred: 02/22/20 20 Edited by: Cecily robins, Guerda ) on 03/13/20 20 Stopped by: Guerda Jones ) on Not Available Not Available Not Available ProAir HFA 2017 active ProAir HFA RxNorm: 752700 Allow Substitu tion: True Refill Denied: No Refill DateOccu rred: 11/16/20 18 Edited by: Arianna Gore ) on 02/22/20 20 Stopped by: Arianna Gore ) on Not Available Not Available Not Available Symbicort 160 mcg-4.5 mcg/actua tion HFA aerosol inhaler INHALE 2 PUFFS BY MOUTH TWICE DAILY FOR ASTHMA active Not Available Not Available No t Available Se- 19 29 mg iron-1 mg tablet TAKE 1 TABLET BY MOUTH EVERY DAY active Not Available Not Available No t Available Vitals Date Recorded Body height Body mass index (BMI) Body weight Systolic And Diastolic Provider Name and Address Organization Details Last Updated DateTime 11/19/2023 162.56 cm 18.5 kg/m2 13488.98 g 118/72 mm[Hg] Carolyn Luna [facility] [employer] [facility] 11/19/2023 12:03:00 Date Recorded Body height Body mass index (BMI) Body weight Body temperature Systolic And Diastolic Provider Name and Address Organization Details Last Updated DateTime 02/19/2023 162.56 cm 18.9 kg/m2 87126.1 6 g 97.6 [degF] 98/60 mm[Hg] Aylarobin Sanchez [facility] [employer] [facility] IV 3 14:24:27 Date Recorded Body height Body mass index (BMI) Body weight Systolic And Diastolic Provider Name and Address Organization Details Last Updated DateTime 03/24/2023 162.56 cm 18.5 kg/m2 95426.54 g 122/80 mm[Hg] Flora Luke [facility] [employer] [facility] 03/24/2023 13:00:31 Date Recorded Body height Body mass index (BMI) Body weight Body temperature Systolic And Diastolic Provider Name and Address Organization Details Last Updated DateTime 04/03/2023 162.56 cm 18.8 kg/m2 17388.4 4 g 98 [degF] 100/70 mm[Hg] Yessica Cuello [facility] [employer] [facility] IV 3 14:43:59 Date Recorded Body height Body mass index (BMI) Body weight Systolic And Diastolic Provider Name and Address Organization Details Last Updated DateTime 09/06/2025 162.56 cm 18.2 kg/m2 90931.79 g 118/62 mm[Hg] Trell Shannon [facility] [employer] [facility] 09/06/2025 12:48:44 Social History Question Answer Notes LastModified by Organizat ion Details LastModified Time Tobacco Smoking Status Never Smoker Lucy lee, [facility] [employer] [facility] 04/29/2022 11:38:57 Are You Blind Or [...] Functional Status Question Answer Note LastModified by [email or web address] ion Details LastModified Time Do you use [...] of last HPV 02/19/2023 Date of LMP 07/05/2025 HPV Vaccine N Duration of Flow (days) [...] ICD10 Code Diagnosis IMO Codes Diagnosis Note [id number] Leda Whitfield CNM [facility] [address] [place] [address] 04/29/2022 11:00:12 04/29/2022 12:40:10 Missed miscarriage [id number] O02.1 reviewed ultrasound findings. Followup in 2 weeks and PRN Vaginal odor [id number] N 89.8 [id number] Leda Whitfield CNM [facility] [address] [place] [address] 07/09/2022 11:00:08 07/09/2022 12:49:31 Cyst of ovary [id number] N83.209 Reviewed ultrasound findings. Pain improved. Followup PRN [id number] MARY Combs [facility] [facility] [address] [place] [address] 02/19/2023 13:54:15 02/20/2023 11:14:57 Gynecologic examination [id number] Z01.419 WWE completedP ap obtainedST I screening- swab obtainedCo ntraceptio n- declinesCB E nml. Discussed breast self-aware nessDiscus sed healthy diet, regular exercise, probiotics Screening for malignant neoplasm of cervix [id number] Z12.4 Cervical cancer screening is used to find abnormal changes in the cells of the cervix that could lead to cancer. Screening includes the Pap test and, for some women, testing for a virus called human papillomav irus (HPV). The main cause of cervical cancer is infection with HPV. Depression screening [id number] 577781 Z13.31 Score 15; Irina has reached out to a mental health care provider. She denies SI/thought s of self-harm. Vaginal odor [id number] N 89.8 Bacterial vaginosis [id number] 86947 N76.0 [id number] MARY Werner [address] [address] 03/24/2023 12:55:23 03/24/2023 13:18:05 Abnormal cervical Papanicolaou smear [id number] R87.619 UPT in office is negative. Pt [...] Colposcopy recommende d. Procedure reviewed in detail. [id number] GARRISON HUIZAR MD [facility] [address] [place] [address] 04/03/2023 14:36:19 05/05/2023 04:43:41 Vaginal discharge [id number] N89.8 N76.0 [id number] Luther Lewis VINAY [facility] [address] [place] [address] 11/19/2023 11:28:09 11/19/2023 18:37:35 test positive [id number] Z32.01 [id number] Z33.1 SIUP @ 9.4 weeks gestationE DD [...] visit Past pregn david history of pre-eclampsia [id number] 48715 Z87.59 add baseline pre-eclamp dilip labs to NOB labsASA 81 mg after 12 weeks Past pregn david history of premature delivery [id number] Z87.51 Delivered at 36 weeks gestation d/t preeclamps ia Past pregn david history of growth restriction 113634042 Z87.59 Discussed weight gain in pregnancyB SD 18.5-- 25 to 35 lb Celiac disease 852008795 K90.0 [id number] [facility] [address] [place] [address] 09/06/2025 11:58:45 09/06/2025 14:20:38 test positive [id number] Z32.01 Missed miscarriage 15146 004 O02.1 [id number] Us today showed MAB. GS measuring 26.9 mm. -- Discussed the common nature of SAB as up to 20% of pregnancie s, the likely genetic cause, and the lack of fault or blame within these circumstan kaley. Discussed the fact that most likely this event will minimally impact future fertility. Discussed Management Options:Ex pectant Management , Medical Management , and D&C. EXPECTANT MANAGEMENT - Gestationa l age <13 weeks without evidence of infection/ hemorrhage .- It is successful in achieving complete expulsion in approximat brandon 80% of women.- Discussed possibilit y of prolonged course, may take 2-4 week. Education/ Precaution s on risk of infection and bleeding. Bleeding likely will be much heavier than menses and potentiall y with severe cramping.- Discussed if Expectant Management fails, it will lead to Medical Management and/or D & C. MEDICAL MANAGEMENT - ACOG: Medication Up to 70 Days of Gestation- Misoprosto l 800 micrograms vaginally or buccally, with one repeat dose as needed if there is no response the the first dose; 48 hours after first dose.- Most women will experience cramping/b leeding within 4 hours of administra tion, bleeding will slow down within 2 hours after passing the . Should expect complete resolution of by 5 days post treatment. - Ibuprofen 800 mg PO Q 8 hours as baseline pain control. Tramadol 50 mg PO Q 6 hours PRN. Heating pad to abdomen and/or lower back PRN.- Discussed if Medical Management fails, it will lead to D & C. DILATION & CURETTAGE (D&C)- The convention al treatment for early miscarriag e is a surgical procedure called dilation and curettage, or D&C.- The cervix (the opening to the uterus) is dilated, and an instrument is inserted that uses suction and/or a gentle scraping motion to remove the contents of the uterus.- D&C is generally recommende d for people who do not want to wait for spontaneou s passage of the , and in people with heavy bleeding or infection. - You should be able to resume most regular activities within a day or two. Mild cramping and spotting may occur for a few hours or days; cramping can be treated with NSAIDs. Plan of Care-- Return Precaution s Given: Increased Bleeding- Soaking more than 1 pad in 1 hour for 2 consecutiv e hours, passing more than two lemon sized blood clots in 1 hour, fever/chil ls, severe pain, or other worrisome symptoms.- - Educated that she does not have to decide right now. She can go home and think about it. She will call the clinic and/or send me a message on the portal to let me know what she has decided. Right now, pt would like expectant management . Health Concerns Section Related Observation LastModified by Organization Kristofer ls LastModified Time None Recorded Concern Status LastModified by Organization Details LastModified Time None Recorded Advance Directives Directive None Recorded Payers Insurance Date Sequence Insurance Name Policy Number Policy Cruz Covered Member ID Cruz Member ID Guarantor Name 09/19/2025 1 [facility] - DOS ON OR AFTER 21 (MEDICAID REPLACEMENT - HMO) Irina Cuba [id number] Irina Cuba 09/22/2025 1 [employer] - DOS ON OR AFTER 21 (MEDICAID REPLACEMENT - HMO) Irina Cuba [id number] Irina Cuba Notes Date Note Type Note Provider Name and Address Organization Details Recorded Time 3 text/html Annual GYNReported by PatientGenitourinary symptomsFor menstrual cycle, patient reportsnormal menses. For urinary symptoms, patient reportsno hematuriaandno incontinence. For vulva, patient reportsno genital lesion. For vagina, patient reportsnormal vaginal discharge.Breast symptomsFor breast, patient reportsno breast pain,no breast lump, andno nipple discharge.ContraceptionFo r current contraception, patient reportsbirth control not practiced.Endocrine symptomsFor sexual complaints, patient reportsno sexual complaints,no pain during intercourse, andnormal libido. For menopausal symptoms, patient reportsno menopausal symptomsandnormal vaginal lubrication.Psychological symptomsFor psychological symptoms, patient reportsno depression,no anxiety, andno pmdd. Irina presents for her annual exam with pap. She reports vaginal discharge and odor. Denies vaginal irritation and pelvic pain. MARY Combs [facility] [place], [address], [facility] [employer] IV 02/22/2023 15:39:56 3 text/html ROS as noted in the HPI Irina is here for colpo for 02/19/23 HGSIL pap. She is currently sexually active. She declines STI testing. Her LMP was 03/11/23. She has not been sexually active since her LMP. She has a long standing hx of abnormal paps. MARY Werner [address] [facility], [place], [address], [facility] [employer] IV 03/24/2023 14:09:17 3 text/html Vaginal/Vulvar ProblemReported by PatientROS as noted in the HPI Pt presents for vaginal discharge.treated last month for BV with clindamycin.felt a little better and restarted s/s again.Hx of celiac disease on gluten free diet- had significant GI s/s with flagyl/ concern for gluten in pills. GARRISON MITCHELL MD [facility] [place], [address], [employer] IV 04/03/2023 15:05:26 4 text/html Confirmation VisitReported by PatientHPIFor obstetrics and gynecology, patient reportsgravida 5,para 2,us iup confirmed, heart tones: (121 bpm),edc (us): (07/07/2024), andga (lmp): (9.4; kris 06/19/24). Irina presents for a confirmation visit.She was seen in the ER for c/o abdominal cramping. She was told to have two small JULIA, measuring 0.6 cm and one right ovarian cyst 2.1 cm.seen in er for abdominal cramping. 28 y.o. S5C3OBA 09/14/23She denies vaginal bleeding, discharge, abdominal pain, and fever. She denies nausea and vomiting. Luther Lewis V[facility]AY [address] [facility], [place], [address], [facility] [employer] IV 11/25/2023 17:50:17 5 text/html ROS as noted in the HPI Irina is here for a missed period. Her LMP was 07/05/25. RJ GUIDO, [facility] [facility], [place], [address], [facility] [employer] IV 09/06/2025 12:56:53 OBGyn Episode Ob Episode Information Episode Created Date Number of Fetuses Patient Bloodtype Patient rh Status Prepregnancy Weight lbs Domestic Partner Domestic Partner Phone Father Name [employer] Status 02/01/20 22 1 CLOSED Fetus Data First Name Last Name Admitted to NICU Weight (g) Sex Living Outcome Pediatric Complications Fetus ID Race Codes Race Delivery Type 2182.91 15 M [id number] Kris Calculation Initial Kris Date Initial Exam Date Initial Exam Provider Initial Ultrasound Date Last Menstrual Period Date Ultra Sound Weeks Gestation 0 Eighteen To Twenty Week Kris Update Ultra Sound Date Fundal Height At Umbil Quickening Date Ultra Sound Latest Weeks Gestation Final Kris Confirmed By Final Kris Confirmed Date Final Kris Date Ultra Sound Latest Days Gestation 0 [...] Domestic Partner Domestic Partner Phone Father Name [employer] Driver Status 02/01/20 22 1 CLOSED Fetus Data First Name Last Name Admitted to NICU Weight (g) Sex Living Outcome Pediatric Complications Fetus ID Race Codes Race Delivery Type [id number] Kris Calculation Initial Kris Date Initial Exam Date Initial Exam Provider Initial Ultrasound Date Last Menstrual Period Date Ultra Sound Weeks Gestation 0 Eighteen To Twenty Week Kris Update Ultra Sound Date Fundal Height At Umbil Quickening Date Ultra Sound Latest Weeks Gestation Final Kris Confirmed By Final Kris Confirmed Date Final Kris Date Ultra Sound Latest Days Gestation 0 [...] Domestic Partner Domestic Partner Phone Father Name [employer] Status 02/01/20 22 1 CLOSED Fetus Data First Name Last Name Admitted to NICU Weight (g) Sex Living Outcome Pediatric Complications Fetus ID Race Codes Race Delivery Type 1955.11 55 F [id number] Kris Calculation Initial Kris Date Initial Exam Date Initial Exam Provider Initial Ultrasound Date Last Menstrual Period Date Ultra Sound Weeks Gestation 0 Eighteen To Twenty Week Kris Update Ultra Sound Date Fundal Height At Umbil Quickening Date Ultra Sound Latest Weeks Gestation Final Kris Confirmed By Final Kris Confirmed Date Final Kris Date Ultra Sound Latest Days Gestation 0 [...]
--- OUTSIDE RECORDS SUMMARY | 2025-09-28 09:57 | XMS_ITS | Clinical Summary ---
Author Organization [address] Address [address] [place] [address] Care Team Providers Care Overhead Cleaner Maintainer Name Role Phone Fay Aayla PICK PULLING MACHINE TENDER Primary Care Provider [phone] Allergies Active Allergy Reactions Criticality Noted Date [...] pain 60 tablet 4 Active PNV with uvipxdz-pias-TL 27 mg iron- 1 mg tabletIndications: Vitamin Deficiency Prevention Take 1 tablet by mouth daily 60 tablet 5 4 Active polyethylene glycol (MIRALAX) 17 gram/dose bulk powderIndications: constipation Take 17 g by mouth daily 510 g 4 Active ferrous sulfate 325 mg (65 mg of elemental iron) tabletIndications: Iron Deficiency Anemia Take 1 tablet (325 mg total) by mouth every other day 60 tablet 2 4 Active lactic frvd-qwhzqk-rtgdha ium (Phexxi) 1.8-1-0.4 % gel vaginal gel Insert 5 g into the vagina as needed (when needed) 60 g 3 4 Active magnesium oxide (MAG-OX) 400 mg (241.3 mg elemental magnesium) tabletIndications: hypomagnesemia Take 1 tablet (400 mg total) by mouth daily 30 tablet 11 4 Active butalbital-acetami nophen-caffeine (FIORICET) 50-300-40 mg per capsuleIndications :Nonintractable episodic headache, unspecified headache type Take 1 capsule by mouth every 8 (eight) hours as needed (for headache) 30 capsule 4 Active labetaloL (NORMODYNE,TRANDAT E) 200 mg tabletIndications: Gestational hypertension, antepartum Take 1.5 tablets (300 mg total) by mouth 2 (two) times a day 90 tablet 11 4 Active norethindrone (MICRONOR) 0.35 mg tabletIndications: Contraception [...] CV/Pulm: Vital signs stable, within normal limits. #[place] Asthma: continue home symbicort and albuterol # [...] # Disposition: Follow up task sent to [facility] scheduling pool. Desires discharge home today. [...] reports prior symptoms of abdominal pain/weight loss/anemia. #[place] asthma: continue Symbicort, albuterol #Thyroid nodule: No thyroid disease symptoms, negative prior work-up, follows with Joana via [facility], TSH 0.844 on 12/17/23 Thyroid nodule 03/16/2024 Overview (03/16/2024): No thyroid disease symptoms, negative prior work-up, follows with Joana via [facility] at [facility],TSH 0.844 on 12/17/23 [...] education: completed in all 3 trimesters [x] Certified Peer Specialist: List provided [x] Car seat discussed, patient [...] , as well as referral to a assistant merchandiser and pulmonary function testing. During delivery, recommend [...] persistent asthma w ithout complication 03/27/2015 03/16/2024 Encounters Date Type Department Care Team Description 08/17/2025 Telephone Obstetrics and Gynecology Clinic [address] [facility] [address] [place] [address] Jeferson Godoy from Last 3 Months Immunizations Immunization Administration Dates Next Due Tdap [...] Tobacco: Never Tobacco Cessation:Counseling Given: Not Answered [facility] Utilities Answer Date Recorded In the past 12 months has e electric, gas, oil, or water company threatened to shut off services in your home? No 06/28/2024 Social Connection and Isolation Panel Answer Date Recorded In a typical week, how many times do you talk on the phone with family, friends, or neighbors? More than three times a week 06/28/2024 How often do you get togethe r with friends or relatives? Twice a week 06/28/2024 How often do you attend chur ch or alevism services? Never 06/28/2024 Do you belong to any clubs o r organizations such as jain groups, unions, fraternal or athletic groups, or [...] things needed for daily living? No 06/28/2024 [place] Depression Scale Answer Date Recorded [place] Depression Scale Total 2 08/27/2024 The thought [...] any time in the past 12 m [facility], were you homeless or living in a [place] facility (including now)? No 06/28/2024 Personal Safety Answer Date Recorded Have you ever been in or are you currently in a harmful physical or emotional relationship or is someone making you feel afraid or unsafe? Denies 06/26/2024 Comments No Sex and Gender Information Value Date Recorded Sex Assigned at Not on file Legal Sex Female 9:13 PM LOW VISION THERAPIST Gender Identity Not on file Sexual Orientation [...] Kayla bass, Bao dumont MD Complications:None Delivery Location:[facility] ([facility]) Last Filed Vital Signs Vital Sign [...] Screening Completed 1995 , 1995, 1995 Insurance [facility] Advance Directives For more information, please contact: [phone] Documents on File Type Date Recorded Patient Dip Tube Assembler Machine Expl anation Advance Directives and Livin g Will 06/18/2024 10:13 PM * Full Code (Latest Code Status on File) Date Activated Date Inactivated Comments 06/27/2024 9:57 AM 06/28/2024 7:49 PM * Full Code Date Activated Date Inactivated Comments 06/26/2024 9:47 PM 06/27/2024 9:57 AM Full CPR in case of cardiopulmonary arrest Care Teams Overhead Cleaner Maintainer Relationship Specialty Start Date End Date Fay Ayala NP PCP - General Family Medicine 11/14/23
[2025-09-28 10:17] LABS: Hematocrit 31.2 % (37.0-47.0); Hemoglobin 10.9 g/dL (12.0-15.0); Immature Granulocyte Percent A 0.5 % (0-0.5); Lymphocytes Absolute Auto 1.33 K/mm3 (0.9-3.2); Mean Corpuscular HGB Conc 34.9 g/dl (32-36); Mean Corpuscular Hemoglobin 33.7 pg (26-34); Mean Corpuscular Volume 96.6 fl (80-100); Nucleated Red Blood Cells Absolute Auto 0.000 K/mm3 (0.0-0.012); Nucleated Red Blood Cells Perc 0.0 % (0.0-0.2); Platelet Count Result 231 k/mm3 (150-375); Red Blood Count 3.23 M/mm3 (4.2-5.4); White Blood Count 8.3 K/mm3 (4.5-10.0)
[2025-09-28 10:30] LABS: Alanine Aminotransferase 22 U/L (6-35); Albumin Level 4.5 g/dL (3.5-5.1); Alkaline Phosphatase 57 U/L (38-126); Anion Gap 12 mmol/L (4-12); Aspartate Amino Transferase 28 U/L (14-36); Bilirubin,Total 0.3 mg/dL (0.2-1.3); Blood Urea Nitrogen 12 mg/dL (7-17); Calcium 8.6 mg/dL (8.4-10.2); Carbon Dioxide 20 mmol/L (22-30); Chloride 107 mmol/L (98-107); Estimated CRCL calculation 85 ml/min; Estimated Glomerular Filt Rate > 60; Glucose 71 mg/dL (65-110); Potassium 3.1 mmol/L (3.4-5.0); Sodium 139 mmol/L (137-145); Total Protein 7.1 g/dL (6.3-8.2)
[2025-09-28 10:31] LABS: INR 1.1; Partial Thromboplastin Time 27.3 Seconds (22.3-36.8); Prothrombin Time 14.4 Seconds (11.1-14.7)
[2025-09-28 10:56] LABS: Magnesium 2.0 mg/dL (1.6-2.3)
--- NOTE | 2025-09-28 11:02 | PC.NURSE ---
Pt got up to go to x-ray and had bled through the pad that was given to her approx 1 hour ago. PT had a large amount of bleeding and some large clots in her pad. Pt was given a depend. Pts linens were chanegd as well. Chux pads were placed on the bed. Provider notified of the bleeding
--- NOTE | 2025-09-28 11:05 | PC.NURSE ---
PT to US
[2025-09-28] MEDS: MORPHINE SULFATE (*CRX) 4 MG/ML INJ IV PUSH (11:41)
[2025-09-28] MEDS: ONDANSETRON INJ 4 MG/2 ML VIAL IV PUSH (11:41)
[2025-09-28 12:14] VITALS: BP 133/64; PULSE 76; RESP 17; TEMP 36.7; O2SAT 100
[2025-09-28] MEDS: POTASSIUM CHLORIDE 20 MEQ ER TABLET 40 MEQ PO (13:03)
[2025-09-28 13:05] VITALS: BP 114/68; PULSE 74; RESP 18; O2SAT 99
== END 2025-09-28 13:10 | disposition home or self-care (01) ==
PROVIDERS: Emergency Provider Physician Assistant
DX: O20.0 Threatened abortion (principal); E87.6 Hypokalemia
CPT/HCPCS: 36415; 76801; 76817; 80053; 83735; 84702; 85025; 85461; 85610; 85730; 86850; 86900; 86901; 96374; 96375; 99284; A9270; J2270; J2405

== ENCOUNTER 2025-11-15 19:03 | Observation (INO) | payer OTHER, SELFPAY ==
[2025-11-15] VITALS (9 sets, daily range): BP systolic 112–136; BP diastolic 67–93; PULSE 67–95; RESP 14–20; TEMP 36.6–36.9; O2SAT 98–100
--- NOTE | ~2025-11-15 | US_ITS ---
US OB <= 14 weeks fetus INDICATION:vaginal bleeding, recent COMPARISON: None. TECHNIQUE: Transabdominal ultrasound of the pelvis was performed. FINDINGS: The uterus measures 8.2 x 9.4 x 6.4 cm. No intrauterine identified. Endometrium is thickened measuring 1.7 cm. The right ovary measures 4.7 x 3.7 x 3.5 cm. The left ovary measures 4.2 x 2 x 2.8 cm. The ovaries are normal in appearance. No adnexal masses are seen. No pelvic fluid or mass is seen. IMPRESSION: No intrauterine identified. This may be due to early in . Correlation with beta-hCG and follow-up with action installer is recommended. BILATERAL OVARIAN DOPPLER FINDINGS: Hardy scale, color Doppler, and spectral waveform analysis of the ovaries was performed. There is symmetric arterial and venous flow bilaterally. Impression: Normal bilateral ovarian Doppler. No evidence of ovarian torsion. Reviewed, dictated and finalized at location S. STERED ACCOUNT ADMINISTRATOR IMPRESSION: No intrauterine identified. This may be due to early in p regnancy. Correlation with beta-hCG and follow-up with action installer is recommen ded. BILATERAL OVARIAN DOPPLER FINDINGS: Hardy scale, color Doppler, and spectral waveform analysis of the ovar ies was performed. There is symmetric arterial and venous flow bilaterally. Impression: Normal bilateral ovarian Doppler. No evidence of ovarian torsion.
[2025-11-15 20:02] LABS: Hematocrit 21.1 % (37.0-47.0); Immature Granulocyte Percent A 0.2 % (0-0.5); Lymphocytes Absolute Auto 1.56 K/mm3 (0.9-3.2); Mean Corpuscular HGB Conc 30.3 g/dl (32-36); Mean Corpuscular Hemoglobin 27.0 pg (26-34); Mean Corpuscular Volume 89.0 fl (80-100); Nucleated Red Blood Cells Absolute Auto 0.000 K/mm3 (0.0-0.012); Nucleated Red Blood Cells Perc 0.0 % (0.0-0.2); Platelet Count Result 170 k/mm3 (150-375); Red Blood Count 2.37 M/mm3 (4.2-5.4); White Blood Count 5.0 K/mm3 (4.5-10.0)
[2025-11-15 20:03] LABS: Hemoglobin 6.4 g/dL (12.0-15.0)
--- NOTE | 2025-11-15 20:10 | PC.NURSE ---
Ultrasound at bedside.
[2025-11-15 20:15] LABS: Add Urine Microscopic? YES; Appearance Urine Clear (Clear); Glucose Urine UA Negative (Negative); Leukocyte Esterase Ur Negative LEU/UL (Negative); Nitrate Urine Negative (Negative); Non Pathogenic Casts 0-2; Specific Grav Ur 1.027 (1.001-1.035)
[2025-11-15 20:15] LABS: Alanine Aminotransferase 27 U/L (6-35); Albumin Level 3.9 g/dL (3.5-5.1); Alkaline Phosphatase 71 U/L (38-126); Anion Gap 3 mmol/L (4-12); Aspartate Amino Transferase 30 U/L (14-36); Bilirubin,Total < 0.1 mg/dL (0.2-1.3); Blood Urea Nitrogen 14 mg/dL (7-17); Calcium 8.9 mg/dL (8.4-10.2); Carbon Dioxide 28 mmol/L (22-30); Chloride 108 mmol/L (98-107); Estimated CRCL calculation 70 ml/min; Estimated Glomerular Filt Rate > 60; Glucose 78 mg/dL (65-110); Potassium 3.3 mmol/L (3.4-5.0); Sodium 139 mmol/L (137-145); Total Protein 6.6 g/dL (6.3-8.2)
--- NOTE | 2025-11-15 20:28 | ED_ITS ---
HPI - Abdominal Pain General Chief Complaint: Abdominal Pain <Essie Johnson APRN - Last Filed: 11/15/25 22:37> Stated Complaint: BLEEDING FROM MISCARRIAGE <Essie Johnson APRN - Last Filed: 11/15/25 22:37> Time Seen by Provider: 11/15/25 19:13 <Essie Johnson APRN - Last Filed: 11/15/25 22:37> History of Present Illness HPI narrative: Patient is a 30-year-old female who presents to the ER points of heavy vaginal bleeding. She reports she was seen in this ER September 28, 2025 and diagnosed with a miscarriage. Patient reports she has been experiencing vaginal bleeding since then including clots and intermittent abdominal cramping. She is a with her last lab for delivery in 2023. Patient reports her last menstrual was July 05, 2025. She has an OBGYN at [facility] in [place], [place]. Patient sources a history of celiac disease, anxiety, and asthma. <Essie Johnson APRN - Last Filed: 11/15/25 22:37> Related Data Home Medications: Home Medications ?Medication ?Instructions ?Recorded ?Confirmed ?Last Taken ?Type albuterol sulfate 90 mcg/actuation inhalation 06/06/24 11/14/25 History aerosol inhaler vitamins no.119-iron tablet PO 06/06/24 Unkn own History fumarate 29 mg-folic acid 1 mg tablet (Se-Lizet 19) budesonide-formoterol HFA 160 inhalation 11/16/25 Unk nown History mcg-4.5 mcg/actuation aerosol inhaler (Symbicort) escitalopram oxalate 20 mg tablet mg 11/16/25 Unknown History labetalol 200 mg tablet mg 11/16/25 Unknown History <Essie Johnson APRN - Last Filed: 11/15/25 22:37> Allergies/Adverse Reactions: Allergies Allergy/AdvReac Type Severity Reaction Status Date / Time Latex, Natural Rubber Allergy Rash Verified 11/16/25 02:26 metoclopramide (From Reglan) AdvReac Intermediate Agitated Verified 11/16/25 02:26 <Essie Johnson APRN - Last Filed: 11/15/25 22:37> Review of Systems 2 Review of Systems: All systems reviewed & are unremarkable except as noted in HPI and below <Essie Johnson APRN - Last Filed: 11/15/25 22:37> [facility] Past Medical History Medical History: Medical History History of gastroesophageal reflux (GERD) <Essie Johnson APRN - Last Filed: 11/15/25 22:37> Social History Social History: Social History Smoking status: Current every day smoker Tobacco type: cigarettes Second hand tobacco smoke exposure: Yes Alcohol intake: current Substance use: current Substance use type: marijuana Lack of Transportation: No Lack of Food: Never True Current Housing: I Have Housing Concerned About Future Housing: No Difficulty Paying Gas/Electric Bills: No Difficulty Paying for Meds: No Currently Unemployed: Decline to Answer Education: Decline to Answer Difficulty w/ Childcare or Family Care: Decline to Answer Spiritual care concerns: No <Essie Johnson APRN - Last Filed: 11/15/25 22:37> Exam 2 Narrative: GENERAL: Ill appearing, well-nourished, non-toxic, in no acute distress. HEAD: Normocephalic, atraumatic. NECK: Supple. No adenopathy, no masses. RESPIRATORY: Airway patent, respirations nonlabored. Clear to auscultation bilaterally, no rales, rhonchi, wheezing. CARDIOVASCULAR: Regular rate and rhythm without murmurs, rubs, or gallops. Peripheral pulses 2+ and equal bilaterally. ABDOMINAL: Soft, nontender, nondistended, no hepatosplenomegaly. Normoactive BS. MUSCULOSKELETAL: Moves all extremities. Strength/ROM intact without gross deformities. SKIN: Warm, dry, pallor. No rashes. NEURO: A&O X3. Speech clear. Cranial nerves II-XII intact. No ataxic movements. PSYCHIATRIC: Appropriate mood and affect. Normal interaction. : Pt's vaginal exam indicates pooling blood in her vaginal canal. Moderate amount of bleeding from cervix <Essie Johnson APRN - Last Filed: 11/15/25 22:37> Course NURSE FIRST ASSIST/PA Physician Supervision NURSE FIRST ASSIST did inform me this patient was being admitted due to vaginal bleeding requiring blood transfusion. ObGyn has been contacted. Labs and chart reviewed asynchronously. I was available for consultation while patient was in the ed but did not personally evaluate them and was not directly involved in their care. < Yolis Pratt MD - Last Filed: 11/16/25 11:48> Vital Signs Vital signs: Vital Signs Temperature 98.4 F 11/15/25 19:01 Pulse Rate 76 11/15/25 19:01 Respiratory Rate 17 11/15/25 19:01 Blood Pressure 125/74 11/15/25 19:01 Pulse Oximetry 100 11/15/25 19:01 Oxygen Delivery Room Air 11/15/25 19:01 Temperature 97.1 F L 11/16/25 05:31 Pulse Rate 71 11/16/25 05:31 Respiratory Rate 14 11/16/25 05:31 Blood Pressure 125/76 11/16/25 05:31 Pulse Oximetry 100 11/16/25 05:31 Oxygen Delivery Room Air 11/15/25 19:01 <Essie Johnson TOOL AND EQUIPMENT RENTAL CLERK - Last Filed: 11/15/25 22:37> Vital Signs Temperature 98.4 F 11/15/25 19:01 Pulse Rate 76 11/15/25 19:01 Respiratory Rate 17 11/15/25 19:01 Blood Pressure 125/74 11/15/25 19:01 Pulse Oximetry 100 11/15/25 19:01 Oxygen Delivery Room Air 11/15/25 19:01 Temperature 97.1 F L 11/16/25 05:31 Pulse Rate 71 11/16/25 05:31 Respiratory Rate 14 11/16/25 05:31 Blood Pressure 125/76 11/16/25 05:31 Pulse Oximetry 100 11/16/25 05:31 Oxygen Delivery Room Air 11/15/25 19:01 <Yolis Pratt MD - Last Filed: 11/16/25 11:48> MDM MDM Narrative Medical decision making narrative: Patient is a 30-year-old female who presents to the ER points of heavy vaginal bleeding. She reports she was seen in this ER September 28, 2025 and diagnosed with a miscarriage. Patient reports she has been experiencing vaginal bleeding since then including clots and intermittent abdominal cramping. She is a with her last lab for delivery in 2023. Patient reports her last menstrual was July 05, 2025. She has an OBGYN at [facility] in [place], [place]. Patient sources a history of celiac disease, anxiety, and asthma. Labs Ordered: CBC, CMP, PTT, INR, beta hCG, UA, type and screen Imaging Ordered: Vaginal ultrasound Medications Ordered: 2 units packed RBCs, Benadryl IV 25mg x2, Reglan IV Results: Pt's US indicates Normal bilateral ovarian Doppler. No evidence of ovarian torsion. Diagnosis: intrauterine vaginal bleeding, low hemoglobin Consults: 2214- Spoke with OBGYN, Dr. Shannon, who is in agreement with plan for admission. She would like pt to have a total of [address] Shannon requests pt receive Tylenol and/or Ibuprofen for pain control. Dr. Shannon reports pt can receive Roxicodone as needed for worsening pain. She would like pt to have a repeat CBC in the morning. Dr. Shannon or Dr. Dumont will consult on pt in the morning. MDM: Results of imaging and lab work shared with patient. It was advised patient be admitted to the hospital for further evaluation and treatment. Patient verbalized understanding and are in agreement with plan. <Essie Johnson APRN - Last Filed: 11/15/25 22:37> Differential Diagnosis Differential Diagnosis: Vaginal bleeding, incomplete miscarriage, urinary tract infection, low hemoglobin <Essie Johnson APRN - Last Filed: 11/15/25 22:37> Lab Data [facility] Lab Attestation statement: I personally reviewed the patient's lab results. <Essie Johnson APRN - Last Filed: 11/15/25 22:37> Result diagrams: 11/16/25 06:10 11/15/25 19:53 <Essie Johnson APRN - Last Filed: 11/15/25 22:37> Labs: Lab Results 11/15/25 11/15/25 11/15/25 Range/Units 19:53 20:03 20:32 WBC 5.0 (4.5-10.0) K/mm3 RBC 2.37 L (4.2-5.4) M/mm3 Hgb 6.4 L* D (12.0-15.0) g/dL Hct 21.1 L (37.0-47.0) % MCV 89.0 (80-100) fl MCH 27.0 (26-34) pg MCHC 30.3 L (32-36) g/dl RDW 17.2 H (11.5-14.5) % Plt Count 170 (150-375) k/mm3 MPV 10.4 (7.4-10.4) fl Immature Gran % (Auto) 0.2 (0-0.5) % Neut % (Auto) 49.7 (45.5-73.1) % Lymph % (Auto) 31.5 (18.3-44.2) % Elk % (Auto) 12.3 H (2.6-8.5) % Eos % (Auto) 5.5 H (0-4.4) % Baso % (Auto) 0.8 (0.2-1.2) % Lymph # (Auto) 1.56 (0.9-3.2) K/mm3 Elk # (Auto) 0.6 (0.1-0.6) K/mm3 Eos # (Auto) 0.3 (0-0.3) K/mm3 Baso # (Auto) 0.0 (0.0-0.1) K/mm3 Abs Immat Gran (auto) 0.01 (0.00-0.031) K/mm3 Absolute Neuts (auto) 2.5 (1.3-6.7) K/mm3 Absolute Nucleated RBC 0.000 (0.0-0.012) K/mm3 Nucleated RBC % 0.0 (0.0-0.2) % PT 14.3 (11.1-14.7) Seconds INR 1.1 APTT 29.6 (22.3-36.8) Seconds Sodium 139 (137-145) mmol/L Potassium 3.3 L (3.4-5.0) mmol/L Chloride 108 H (98-107) mmol/L Carbon Dioxide 28 (22-30) mmol/L Anion Gap 3 L (4-12) mmol/L BUN 14 (7-17) mg/dL Creatinine 0.78 (0.7-1.0) mg/dL Estim Creat Clear Calc 70 ml/min Estimated GFR > 60 (59 - ) Glucose 78 (65-110) mg/dL Calcium 8.9 (8.4-10.2) mg/dL Total Bilirubin < 0.1 L (0.2-1.3) mg/dL AST 30 (14-36) U/L ALT 27 (6-35) U/L Alkaline Phosphatase 71 (38-126) U/L Total Protein 6.6 (6.3-8.2) g/dL Albumin 3.9 (3.5-5.1) g/dL Beta HCG, Quant < 2.39 mIU/ML Urine Color Yellow (Yellow) Urine Appearance Clear (Clear) Urine pH 7.0 (5.0-9.0) Ur Specific [place] 1.027 (1.001-1.035) Urine Protein Trace (Negative) mg/dL Urine Glucose (UA) Negative (Negative) mg/dL Urine Ketones Trace H (Negative) mg/dL Ur Blood (Man) Non-hemolyzed trace H (Negative) Urine Nitrate Negative (Negative) Urine Bilirubin Negative (Negative) Urine Urobilinogen 1.0 (<2.0) mg/dL Leukocyte Esterase Rfl Negative (Negative) ELE/UL Urine RBC 11-20 H (0-2) /hpf Urine WBC 0-5 (0-3) /hpf Ur Squamous Epith Cells None seen (Few) /hpf Urine Bacteria None seen /hpf Urine Casts 0-2 Influenza A (RT-PCR) (Negative) Influenza B (RT-PCR) (Negative) RSV (RT-PCR) (Negative) SARS-CoV-2 RNA (RT-PCR) (Negative) Blood Type B Positive Antibody Screen Negative Crossmatch See Detail 11/15/25 Range/Units 22:42 WBC (4.5-10.0) K/mm3 RBC (4.2-5.4) M/mm3 Hgb (12.0-15.0) g/dL Hct (37.0-47.0) % MCV (80-100) fl MCH (26-34) pg MCHC (32-36) g/dl RDW (11.5-14.5) % Plt Count (150-375) k/mm3 MPV (7.4-10.4) fl Immature Gran % (Auto) (0-0.5) % Neut % (Auto) (45.5-73.1) % Lymph % (Auto) (18.3-44.2) % Elk % (Auto) (2.6-8.5) % Eos % (Auto) (0-4.4) % Baso % (Auto) (0.2-1.2) % Lymph # (Auto) (0.9-3.2) K/mm3 Elk # (Auto) (0.1-0.6) K/mm3 Eos # (Auto) (0-0.3) K/mm3 Baso # (Auto) (0.0-0.1) K/mm3 Abs Immat Gran (auto) (0.00-0.031) K/mm3 Absolute Neuts (auto) (1.3-6.7) K/mm3 Absolute Nucleated RBC (0.0-0.012) K/mm3 Nucleated RBC % (0.0-0.2) % PT (11.1-14.7) Seconds INR APTT (22.3-36.8) Seconds Sodium (137-145) mmol/L Potassium (3.4-5.0) mmol/L Chloride (98-107) mmol/L Carbon Dioxide (22-30) mmol/L Anion Gap (4-12) mmol/L BUN (7-17) mg/dL Creatinine (0.7-1.0) mg/dL Estim Creat Clear Calc ml/min Estimated GFR (59 - ) Glucose (65-110) mg/dL Calcium (8.4-10.2) mg/dL Total Bilirubin (0.2-1.3) mg/dL AST (14-36) U/L ALT (6-35) U/L Alkaline Phosphatase (38-126) U/L Total Protein (6.3-8.2) g/dL Albumin (3.5-5.1) g/dL Beta HCG, Quant mIU/ML Urine Color (Yellow) Urine Appearance (Clear) Urine pH (5.0-9.0) Ur Specific [place] (1.001-1.035) Urine Protein (Negative) mg/dL Urine Glucose (UA) (Negative) mg/dL Urine Ketones (Negative) mg/dL Ur Blood (Man) (Negative) Urine Nitrate (Negative) Urine Bilirubin (Negative) Urine Urobilinogen (<2.0) mg/dL Leukocyte Esterase Rfl (Negative) LEE/UL Urine RBC (0-2) /hpf Urine WBC (0-3) /hpf Ur Squamous Epith Cells (Few) /hpf Urine Bacteria /hpf Urine Casts Influenza A (RT-PCR) Negative (Negative) Influenza B (RT-PCR) Negative (Negative) RSV (RT-PCR) Negative (Negative) SARS-CoV-2 RNA (RT-PCR) Negative (Negative) Blood Type Antibody Screen Crossmatch <Essie RaymundoSandie Johnson, TOOL AND EQUIPMENT RENTAL CLERK - Last Filed: 11/15/25 22:37> Lab Results 11/15/25 11/15/25 11/15/25 Range/Units 19:53 20:03 20:32 WBC 5.0 (4.5-10.0) K/mm3 RBC 2.37 L (4.2-5.4) M/mm3 Hgb 6.4 L* D (12.0-15.0) g/dL Hct 21.1 L (37.0-47.0) % MCV 89.0 (80-100) fl MCH 27.0 (26-34) pg MCHC 30.3 L (32-36) g/dl RDW 17.2 H (11.5-14.5) % Plt Count 170 (150-375) k/mm3 MPV 10.4 (7.4-10.4) fl Immature Gran % (Auto) 0.2 (0-0.5) % Neut % (Auto) 49.7 (45.5-73.1) % Lymph % (Auto) 31.5 (18.3-44.2) % Elk % (Auto) 12.3 H (2.6-8.5) % Eos % (Auto) 5.5 H (0-4.4) % Baso % (Auto) 0.8 (0.2-1.2) % Lymph # (Auto) 1.56 (0.9-3.2) K/mm3 Elk # (Auto) 0.6 (0.1-0.6) K/mm3 Eos # (Auto) 0.3 (0-0.3) K/mm3 Baso # (Auto) 0.0 (0.0-0.1) K/mm3 Abs Immat Gran (auto) 0.01 (0.00-0.031) K/mm3 Absolute Neuts (auto) 2.5 (1.3-6.7) K/mm3 Absolute Nucleated RBC 0.000 (0.0-0.012) K/mm3 Nucleated RBC % 0.0 (0.0-0.2) % PT 14.3 (11.1-14.7) Seconds INR 1.1 APTT 29.6 (22.3-36.8) Seconds Sodium 139 (137-145) mmol/L Potassium 3.3 L (3.4-5.0) mmol/L Chloride 108 H (98-107) mmol/L Carbon Dioxide 28 (22-30) mmol/L Anion Gap 3 L (4-12) mmol/L BUN 14 (7-17) mg/dL Creatinine 0.78 (0.7-1.0) mg/dL Estim Creat Clear Calc 70 ml/min Estimated GFR > 60 (59 - ) Glucose 78 (65-110) mg/dL Calcium 8.9 (8.4-10.2) mg/dL Total Bilirubin < 0.1 L (0.2-1.3) mg/dL AST 30 (14-36) U/L ALT 27 (6-35) U/L Alkaline Phosphatase 71 (38-126) U/L Total Protein 6.6 (6.3-8.2) g/dL Albumin 3.9 (3.5-5.1) g/dL Beta HCG, Quant < 2.39 mIU/ML Urine Color Yellow (Yellow) Urine Appearance Clear (Clear) Urine pH 7.0 (5.0-9.0) Ur Specific [place] 1.027 (1.001-1.035) Urine Protein Trace (Negative) mg/dL Urine Glucose (UA) Negative (Negative) mg/dL Urine Ketones Trace H (Negative) mg/dL Ur Blood (Man) Non-hemolyzed trace H (Negative) Urine Nitrate Negative (Negative) Urine Bilirubin Negative (Negative) Urine Urobilinogen 1.0 (<2.0) mg/dL Leukocyte Esterase Rfl Negative (Negative) LEE/UL Urine RBC 11-20 H (0-2) /hpf Urine WBC 0-5 (0-3) /hpf Ur Squamous Epith Cells None seen (Few) /hpf Urine Bacteria None seen /hpf Urine Casts 0-2 Influenza A (RT-PCR) (Negative) Influenza B (RT-PCR) (Negative) RSV (RT-PCR) (Negative) SARS-CoV-2 RNA (RT-PCR) (Negative) Blood Type B Positive Antibody Screen Negative Crossmatch See Detail 11/15/25 Range/Units 22:42 WBC (4.5-10.0) K/mm3 RBC (4.2-5.4) M/mm3 Hgb (12.0-15.0) g/dL Hct (37.0-47.0) % MCV (80-100) fl MCH (26-34) pg MCHC (32-36) g/dl RDW (11.5-14.5) % Plt Count (150-375) k/mm3 MPV (7.4-10.4) fl Immature Gran % (Auto) (0-0.5) % Neut % (Auto) (45.5-73.1) % Lymph % (Auto) (18.3-44.2) % Elk % (Auto) (2.6-8.5) % Eos % (Auto) (0-4.4) % Baso % (Auto) (0.2-1.2) % Lymph # (Auto) (0.9-3.2) K/mm3 Elk # (Auto) (0.1-0.6) K/mm3 Eos # (Auto) (0-0.3) K/mm3 Baso # (Auto) (0.0-0.1) K/mm3 Abs Immat Gran (auto) (0.00-0.031) K/mm3 Absolute Neuts (auto) (1.3-6.7) K/mm3 Absolute Nucleated RBC (0.0-0.012) K/mm3 Nucleated RBC % (0.0-0.2) % PT (11.1-14.7) Seconds INR APTT (22.3-36.8) Seconds Sodium (137-145) mmol/L Potassium (3.4-5.0) mmol/L Chloride (98-107) mmol/L Carbon Dioxide (22-30) mmol/L Anion Gap (4-12) mmol/L BUN (7-17) mg/dL Creatinine (0.7-1.0) mg/dL Estim Creat Clear Calc ml/min Estimated GFR (59 - ) Glucose (65-110) mg/dL Calcium (8.4-10.2) mg/dL Total Bilirubin (0.2-1.3) mg/dL AST (14-36) U/L ALT (6-35) U/L Alkaline Phosphatase (38-126) U/L Total Protein (6.3-8.2) g/dL Albumin (3.5-5.1) g/dL Beta HCG, Quant mIU/ML Urine Color (Yellow) Urine Appearance (Clear) Urine pH (5.0-9.0) Ur Specific [place] (1.001-1.035) Urine Protein (Negative) mg/dL Urine Glucose (UA) (Negative) mg/dL Urine Ketones (Negative) mg/dL Ur Blood (Man) (Negative) Urine Nitrate (Negative) Urine Bilirubin (Negative) Urine Urobilinogen (<2.0) mg/dL Leukocyte Esterase Rfl (Negative) LEE/UL Urine RBC (0-2) /hpf Urine WBC (0-3) /hpf Ur Squamous Epith Cells (Few) /hpf Urine Bacteria /hpf Urine Casts Influenza A (RT-PCR) Negative (Negative) Influenza B (RT-PCR) Negative (Negative) RSV (RT-PCR) Negative (Negative) SARS-CoV-2 RNA (RT-PCR) Negative (Negative) Blood Type Antibody Screen Crossmatch <Yolis Pratt MD - Last Filed: 11/16/25 11:48> Imaging Data Attestation: I personally reviewed and interpreted this imaging study as follows: < Essie Johnson APRN - Last Filed: 11/15/25 22:37> Radiologist's impression: ITS Impressions Ultrasound 11/15/25 21:21 IMPRESSION: No intrauterine identified. This may be due to early in . Correlation with beta-hCG and follow-up with senior vice president and chief information officer is recommended. BILATERAL OVARIAN DOPPLER FINDINGS: Hardy scale, color Doppler, and spectral waveform analysis of the ovaries was performed. There is symmetric arterial and venous flow bilaterally. Impression: Normal bilateral ovarian Doppler. No evidence of ovarian torsion. <Essie Johnson APRN - Last Filed: 11/15/25 22:37> ITS Impressions Ultrasound 11/15/25 21:21 IMPRESSION: No intrauterine identified. This may be due to early in . Correlation with beta-hCG and follow-up with senior vice president and chief information officer is recommended. BILATERAL OVARIAN DOPPLER FINDINGS: Hardy scale, color Doppler, and spectral waveform analysis of the ovaries was performed. There is symmetric arterial and venous flow bilaterally. Impression: Normal bilateral ovarian Doppler. No evidence of ovarian torsion. <Yolis Pratt MD - Last Filed: 11/16/25 11:48> Discharge Plan Discharge Clinical Impression: Abnormal vaginal bleeding, Low hemoglobin <Essie Johnson APRN - Last Filed: 11/15/25 22:37> Patient Disposition: Still a Patient <Essie Johnson APRN - Last Filed: 11/15/25 22:37> Condition: Serious <Essie Johnson APRN - Last Filed: 11/15/25 22:37>
[2025-11-15 20:30] LABS: Beta HCG Quantitative < 2.39 mIU/ML
[2025-11-15 20:44] LABS: INR 1.1; Prothrombin Time 14.3 Seconds (11.1-14.7)
[2025-11-15 20:45] LABS: Partial Thromboplastin Time 29.6 Seconds (22.3-36.8)
[2025-11-15] MEDS: METOCLOPRAMIDE HCL INJ 10 MG/2 ML VIAL IV PUSH (20:53)
[2025-11-15] MEDS: SODIUM CHLORIDE 0.9% IV 250 ML 30 ML IV CONT ×2 (21:05→23:11)
[2025-11-15] MEDS: TUBING, BLOOD SET 1 EACH XX (21:05)
--- NOTE | 2025-11-15 21:17 | PC.NURSE ---
Pt. became agitated after reglan administration. HR increased to 120, pt. tearful and pulling off blanket and thrashing about in bed. SITE PROJECT MANAGER [place] notified. Additional benadryl ordered. Pt. agitation improved after 2nd dose of benadryl was given.
--- NOTE | 2025-11-15 21:42 | PC.NURSE ---
Pt. continues to c/o intermittent all over itching. No hives present. Pt. mildly agitated as a result of the itching. Pt. states this started a few nights ago. It comes and goes. I don't know why it happens. Pt. remains A&Ox4, and is cooperative. VSS. Breathing equal and unlabored.
--- NOTE | 2025-11-15 22:10 | PC.NURSE ---
CAN OPERATOR Elizabeth at bedside performing pelvic exam.
[2025-11-15] MEDS: TUBING, BLOOD PLUM PUMP TUBING 1 EACH XX (23:11)
[2025-11-15 23:23] LABS: Influenza A QL RT-PCR Negative (Negative); Influenza B QL RT-PCR Negative (Negative); RSV RNA, RT-PCR Negative (Negative); SARS-CoV-2 RNA PCR Negative (Negative)
--- NOTE | 2025-11-15 23:25 | PC.NURSE ---
Report given to ILEANA Nuñez.
[2025-11-16 00:02] VITALS: BP 140/77; PULSE 83; RESP 18; O2SAT 100
--- NOTE | 2025-11-16 00:08 | WPCEDHO ---
ED Hand Off Checklist All vitals saved:Yes IV Site documented:Yes All med administrations documented:Yes Triage Note Triage Note pt to ED [facility] via [facility] 11/15/25 19:01 EMS. EMS states pt had a miscarriage a month ago and is continuously bleeding. pt states she has not stopped bleeding since diagnosed with miscarriage but the bleeding has worsened today with clots. pt states she 11 weeks at the time. pt has a hx of hypertension. . pt states she has had 2 prior miscarriages. Allergies Latex, Natural Rubber Allergy (Verified 11/15/25 21:20) Rash metoclopramide (From Reglan) Adverse Reaction (Intermediate, Verified 11/15/25 21:20) Agitated Active Medications including assessments/comments Sodium Chloride (Normal Saline Iv) 250 mls @ 30 mls/hr IV CONT .Q8H20M STA Stop: 11/16/25 04:30 Last Infusion: 11/15/25 22:45 Dose: Infused Documented By: KJT Infusion/Titration Document 11/15/25 22:45 KJT (Rec: 11/15/25 23:34 KJT [id number]) Intake Intake 50 Cumulative Intake ( 50 bag) Cumulative Intake ( 50 Rx) Container Volume 0 Waste Amount 200 Dosing Infusion Rate 0 Cumulative Dose Not Applicable Increase/Decrease Infused Elapsed Time Elapsed Time ( 1h 40m minutes) Admin: 11/15/25 21:05 Dose: 30 mls/hr Documented By: KJT Infusion/Titration Document 11/15/25 21:05 KJT (Rec: 11/15/25 21:05 KJT [id number]) Intake IV Site Peripheral Access Left Forearm Container Volume 250 Waste Amount 0 Dosing Infusion Rate 30 Cumulative Dose Not Applicable Increase/Decrease Started Elapsed Time Elapsed Time ( 0m minutes) Sodium Chloride (Normal Saline Iv) 250 mls @ 30 mls/hr IV CONT .Q8H20M STA Stop: 11/16/25 06:41 Last Admin: 11/15/25 23:11 Dose: 30 mls/hr Documented By: KJT Infusion/Titration Document 11/15/25 23:11 KJT (Rec: 11/15/25 23:34 KJT [id number]) Intake IV Site Peripheral Access Left Forearm Container Volume 250 Waste Amount 0 Dosing Infusion Rate 30 Cumulative Dose Not Applicable Increase/Decrease Started Elapsed Time Elapsed Time ( 0m minutes) Administered/Completed Medications Discontinued Medications Diphenhydramine HCl (Diphenhydramine Hcl Inj 50 Mg/Ml Vial) 25 mg IV PUSH ONCE STA Stop: 11/15/25 20:27 Last Admin: 11/15/25 20:53 Dose: 25 mg Documented By: MATHEW Diphenhydramine HCl (Diphenhydramine Hcl Inj 50 Mg/Ml Vial) 25 mg IV PUSH ONCE STA Stop: 11/15/25 21:11 Last Admin: 11/15/25 21:13 Dose: 25 mg Documented By: MATHEW IV Miscellaneous Supplies (Tubing, Blood Set) Confirm Administered Dose 1 each XX .STK-MED ONE Stop: 11/15/25 20:51 Last Admin: 11/15/25 21:05 Dose: 1 each Documented By: MATHEW IV Miscellaneous Supplies (Tubing, Blood [place] Pump Tubing) Confirm Administered Dose 1 each XX .STK-MED ONE Stop: 11/15/25 22:58 Last Admin: 11/15/25 23:11 Dose: 1 each Documented By: MATHEW Metoclopramide HCl (Metoclopramide Hcl Inj 10 Mg/2 Ml Vial) 10 mg IV PUSH ONCE STA Stop: 11/15/25 20:27 Last Admin: 11/15/25 20:53 Dose: 10 mg Documented By: MATHEW Notes 11/15/25 23:25 Nurse Note by Kamala Alcala. Report given to ILEANA Nuñez. Initialized on 11/15/25 23:25 - END OF NOTE 11/15/25 22:10 (created 11/15/25 22:19) Nurse Note by Kamala Alcala COURT REPORTER [place] at bedside performing pelvic exam. Initialized on 11/15/25 22:19 - END OF NOTE 11/15/25 21:42 (created 11/15/25 21:49) Nurse Note by Kamala Alcala Pt. continues to c/o intermittent all over itching. No hives present. Pt. mildly agitated as a result of the itching. Pt. states this started a few nights ago. It comes and goes. I don't know why it happens. Pt. remains A&Ox4, and is cooperative. VSS. Breathing equal and unlabored. Initialized on 11/15/25 21:49 - END OF NOTE 11/15/25 21:17 Nurse Note by Kamala Alcala Pt. became agitated after reglan administration. HR increased to 120, pt. tearful and pulling off blanket and thrashing about in bed. COURT REPORTER [place] notified. Additional benadryl ordered. Pt. agitation improved after 2nd dose of benadryl was given. Initialized on 11/15/25 21:17 - END OF NOTE 11/15/25 20:10 Nurse Note by Kamala Alcala Ultrasound at bedside. Initialized on 11/15/25 20:10 - END OF NOTE Interventions/Assessments IV / Saline Lock, Insert Start: 11/15/25 18:56 Freq: Status: Active Protocol: Document 11/15/25 20:34 KJT (Rec: 11/15/25 20:34 KJT [id number]) IV Assessment Peripheral Access Left Forearm IV Catheter Access Initiated IV Insertion Date 11/15/25 IV Insertion Time 20:34 Catheter Gauge 20 IV Insertion 1 Attempts Ultrasound Used for No Placement IV Site Assessment WNL IV Care and WNL Maintenance PA: Gastrointestinal Assessment Start: 11/15/25 18:56 Freq: Status: Active Protocol: Document 11/15/25 19:59 KJT (Rec: 11/15/25 20:00 KJT [id number]) GI Assessment Gastrointestinal Constipation,Pain Symptoms Description Flat,Soft Pattern Constipated Nausea/Vomiting Assessment Nausea Frequency None Emesis Frequency None PA: Reproductive Assessment Start: 11/15/25 20:00 Freq: Status: Active Protocol: Document 11/15/25 20:00 KJT (Rec: 11/15/25 20:02 KJT [id number]) Reproductive Assessment Reproductive Abnormal Bleeding Symptoms Vaginal Discharge Large Amount Vaginal Discharge Clots,Thick Description Vaginal Discharge Red Color Now No Breast Feeding Now No 6 Para 3 Vaginal Bleeding Assessment Associated Symptoms Abdominal Pain,Back Pain,Cramping,Dizziness Amount Moderate,With Clots Description Bright Red Onset 09/28/25 Last Vital Signs Temperature 98 F 11/15/25 23:26 Pulse Rate 83 11/16/25 00:02 Respiratory Rate 18 11/16/25 00:02 Pulse Oximetry 100 11/16/25 00:02 Blood Pressure 140/77 11/16/25 00:02 Blood Pressure Mean 98 11/16/25 00:02 Blood Pressure Position Left Lateral 11/15/25 23:26 Oxygen Delivery Room Air 11/15/25 19:01 Weight 48.3 kg 11/15/25 19:01 Last Result - Abnormals Only RBC 2.37 M/mm3 (4.2-5.4) L 11/15/25 19:53 Hgb 6.4 g/dL (12.0-15.0) L* D 11/15/25 19:53 Hct 21.1 % (37.0-47.0) L 11/15/25 19:53 MCHC 30.3 g/dl (32-36) L 11/15/25 19:53 RDW 17.2 % (11.5-14.5) H 11/15/25 19:53 [place] % (Auto) 12.3 % (2.6-8.5) H 11/15/25 19:53 Eos % (Auto) 5.5 % (0-4.4) H 11/15/25 19:53 Potassium 3.3 mmol/L (3.4-5.0) L 11/15/25 19:53 Chloride 108 mmol/L (98-107) H 11/15/25 19:53 Anion Gap 3 mmol/L (4-12) L 11/15/25 19:53 Total Bilirubin < 0.1 mg/dL (0.2-1.3) L 11/15/25 19:53 Urine Ketones Trace mg/dL (Negative) H 11/15/25 20:03 Ur Blood (Man) Non-hemolyzed trace (Negative) H 11/15/25 20:03 Urine RBC 11-20 /hpf (0-2) H 11/15/25 20:03 Crossmatch See Detail 11/15/25 20:32 Most Recent Suicide Severity Rating Suicide Severity Rating NO RISK INDICATED 11/15/25 19:01
[2025-11-16 00:26] VITALS: BP 140/77; PULSE 60; RESP 14; TEMP 36.9; O2SAT 100
[2025-11-16 01:03] VITALS: BP 129/83; PULSE 61; RESP 16; O2SAT 99
--- NOTE | 2025-11-16 01:05 | WPCEDHO ---
ED Hand Off Checklist All vitals saved:Yes IV Site documented:Yes All med administrations documented:Yes Triage Note Triage Note pt to ED [facility] 11/15/25 19:01 EMS. EMS states pt had a miscarriage a month ago and is continuously bleeding. pt states she has not stopped bleeding since diagnosed with miscarriage but the bleeding has worsened today with clots. pt states she 11 weeks at the time. pt has a hx of hypertension. . pt states she has had 2 prior miscarriages. Allergies Latex, Natural Rubber Allergy (Verified 11/15/25 21:20) Rash metoclopramide (From Reglan) Adverse Reaction (Intermediate, Verified 11/15/25 21:20) Agitated Active Medications including assessments/comments Sodium Chloride (Normal Saline Iv) 250 mls @ 30 mls/hr IV CONT .Q8H20M STA Stop: 11/16/25 04:30 Last Infusion: 11/15/25 22:45 Dose: Infused Documented By: KJT Infusion/Titration Document 11/15/25 22:45 KJT (Rec: 11/15/25 23:34 KJT [id number]) Intake Intake 50 Cumulative Intake ( 50 bag) Cumulative Intake ( 50 Rx) Container Volume 0 Waste Amount 200 Dosing Infusion Rate 0 Cumulative Dose Not Applicable Increase/Decrease Infused Elapsed Time Elapsed Time ( 1h 40m minutes) Admin: 11/15/25 21:05 Dose: 30 mls/hr Documented By: KJT Infusion/Titration Document 11/15/25 21:05 KJT (Rec: 11/15/25 21:05 KJT [id number]) Intake IV Site Peripheral Access Left Forearm Container Volume 250 Waste Amount 0 Dosing Infusion Rate 30 Cumulative Dose Not Applicable Increase/Decrease Started Elapsed Time Elapsed Time ( 0m minutes) Sodium Chloride (Normal Saline Iv) 250 mls @ 30 mls/hr IV CONT .Q8H20M STA Stop: 11/16/25 06:41 Last Admin: 11/15/25 23:11 Dose: 30 mls/hr Documented By: KJT Infusion/Titration Document 11/15/25 23:11 KJT (Rec: 11/15/25 23:34 KJT [id number]) Intake IV Site Peripheral Access Left Forearm Container Volume 250 Waste Amount 0 Dosing Infusion Rate 30 Cumulative Dose Not Applicable Increase/Decrease Started Elapsed Time Elapsed Time ( 0m minutes) Administered/Completed Medications Discontinued Medications Diphenhydramine HCl (Diphenhydramine Hcl Inj 50 Mg/Ml Vial) 25 mg IV PUSH ONCE STA Stop: 11/15/25 20:27 Last Admin: 11/15/25 20:53 Dose: 25 mg Documented By: MATHEW Diphenhydramine HCl (Diphenhydramine Hcl Inj 50 Mg/Ml Vial) 25 mg IV PUSH ONCE STA Stop: 11/15/25 21:11 Last Admin: 11/15/25 21:13 Dose: 25 mg Documented By: MATHEW IV Miscellaneous Supplies (Tubing, Blood Set) Confirm Administered Dose 1 each XX .STK-MED ONE Stop: 11/15/25 20:51 Last Admin: 11/15/25 21:05 Dose: 1 each Documented By: MATHEW IV Miscellaneous Supplies (Tubing, Blood [place] Pump Tubing) Confirm Administered Dose 1 each XX .STK-MED ONE Stop: 11/15/25 22:58 Last Admin: 11/15/25 23:11 Dose: 1 each Documented By: MATHEW Metoclopramide HCl (Metoclopramide Hcl Inj 10 Mg/2 Ml Vial) 10 mg IV PUSH ONCE STA Stop: 11/15/25 20:27 Last Admin: 11/15/25 20:53 Dose: 10 mg Documented By: MATHEW Notes 11/16/25 00:08 ED Hand Off by Savannah Schwarz ED Hand Off Checklist All vitals saved:Yes IV Site documented:Yes All med administrations documented:Yes Triage Note Triage Note pt to ED [facility] 11/15/25 19:01 EMS. EMS states pt had a miscarriage a month ago and is continuously bleeding. pt states she has not stopped bleeding since diagnosed with miscarriage but the bleeding has worsened today with clots. pt states she 11 weeks at the time. pt has a hx of hypertension. . pt states she has had 2 prior miscarriages. Allergies Latex, Natural Rubber Allergy (Verified 11/15/25 21:20) Rash metoclopramide (From Reglan) Adverse Reaction (Intermediate, Verified 11/15/25 21:20) Agitated Active Medications including assessments/comments Sodium Chloride (Normal Saline Iv) 250 mls @ 30 mls/hr IV CONT .Q8H20M STA Stop: 11/16/25 04:30 Last Infusion: 11/15/25 22:45 Dose: Infused Documented By: MATHEW Infusion/Titration Document 11/15/25 22:45 KJT (Rec: 11/15/25 23:34 KJT [id number]) Intake Intake 50 Cumulative Intake ( 50 bag) Cumulative Intake ( 50 Rx) Container Volume 0 Waste Amount 200 Dosing Infusion Rate 0 Cumulative Dose Not Applicable Increase/Decrease Infused Elapsed Time Elapsed Time ( 1h 40m minutes) Admin: 11/15/25 21:05 Dose: 30 mls/hr Documented By: MATHEW Infusion/Titration Document 11/15/25 21:05 KJT (Rec: 11/15/25 21:05 KJT [id number]) Intake IV Site Peripheral Access Left Forearm Container Volume 250 Waste Amount 0 Dosing Infusion Rate 30 Cumulative Dose Not Applicable Increase/Decrease Started Elapsed Time Elapsed Time ( 0m minutes) Sodium Chloride (Normal Saline Iv) 250 mls @ 30 mls/hr IV CONT .Q8H20M STA Stop: 11/16/25 06:41 Last Admin: 11/15/25 23:11 Dose: 30 mls/hr Documented By: MATHEW Infusion/Titration Document 11/15/25 23:11 KJT (Rec: 11/15/25 23:34 KJT [id number]) Intake IV Site Peripheral Access Left Forearm Container Volume 250 Waste Amount 0 Dosing Infusion Rate 30 Cumulative Dose Not Applicable Increase/Decrease Started Elapsed Time Elapsed Time ( 0m minutes) Administered/Completed Medications Discontinued Medications Diphenhydramine HCl (Diphenhydramine Hcl Inj 50 Mg/Ml Vial) 25 mg IV PUSH ONCE STA Stop: 11/15/25 20:27 Last Admin: 11/15/25 20:53 Dose: 25 mg Documented By: MATHEW Diphenhydramine HCl (Diphenhydramine Hcl Inj 50 Mg/Ml Vial) 25 mg IV PUSH ONCE STA Stop: 11/15/25 21:11 Last Admin: 11/15/25 21:13 Dose: 25 mg Documented By: MATHEW IV Miscellaneous Supplies (Tubing, Blood Set) Confirm Administered Dose 1 each XX .STK-MED ONE Stop: 11/15/25 20:51 Last Admin: 11/15/25 21:05 Dose: 1 each Documented By: MATHEW IV Miscellaneous Supplies (Tubing, Blood [place] Pump Tubing) Confirm Administered Dose 1 each XX .STK-MED ONE Stop: 11/15/25 22:58 Last Admin: 11/15/25 23:11 Dose: 1 each Documented By: MATHEW Metoclopramide HCl (Metoclopramide Hcl Inj 10 Mg/2 Ml Vial) 10 mg IV PUSH ONCE STA Stop: 11/15/25 20:27 Last Admin: 11/15/25 20:53 Dose: 10 mg Documented By: MATHEW Notes 11/15/25 23:25 Nurse Note by Kamala Alcala Report given to ILEANA Nuñez. Initialized on 11/15/25 23:25 - END OF NOTE 11/15/25 22:10 (created 11/15/25 22:19) Nurse Note by Kamala Alcala DIST[employer]ION SYSTEM OPERATOR [place] at bedside performing pelvic exam. Initialized on 11/15/25 22:19 - END OF NOTE 11/15/25 21:42 (created 11/15/25 21:49) Nurse Note by Kamala Alcala Pt. continues to c/o intermittent all over itching. No hives present. Pt. mildly agitated as a result of the itching. Pt. states this started a few nights ago. It comes and goes. I don't know why it happens. Pt. remains A&Ox4, and is cooperative. VSS. Breathing equal and unlabored. Initialized on 11/15/25 21:49 - END OF NOTE 11/15/25 21:17 Nurse Note by Kamala Alcala Pt. became agitated after reglan administration. HR increased to 120, pt. tearful and pulling off blanket and thrashing about in bed. DISTRIBUTION SYSTEM OPERATOR [place] notified. Additional benadryl ordered. Pt. agitation improved after 2nd dose of benadryl was given. Initialized on 11/15/25 21:17 - END OF NOTE 11/15/25 20:10 Nurse Note by Kamala Alcala Ultrasound at bedside. Initialized on 11/15/25 20:10 - END OF NOTE Interventions/Assessments IV / Saline Lock, Insert Start: 11/15/25 18:56 Freq: Status: Active Protocol: Document 11/15/25 20:34 MATHEW (Rec: 11/15/25 20:34 MATHEW [id number]) IV Assessment Peripheral Access Left Forearm IV Catheter Access Initiated IV Insertion Date 11/15/25 IV Insertion Time 20:34 Catheter Gauge 20 IV Insertion 1 Attempts Ultrasound Used for No Placement IV Site Assessment WNL IV Care and WNL Maintenance PA: Gastrointestinal Assessment Start: 11/15/25 18:56 Freq: Status: Active Protocol: Document 11/15/25 19:59 KJT (Rec: 11/15/25 20:00 KJT [id number]) GI Assessment Gastrointestinal Constipation,Pain Symptoms Description Flat,Soft Pattern Constipated Nausea/Vomiting Assessment Nausea Frequency None Emesis Frequency None PA: Reproductive Assessment Start: 11/15/25 20:00 Freq: Status: Active Protocol: Document 11/15/25 20:00 KJT (Rec: 11/15/25 20:02 KJT [id number]) Reproductive Assessment Reproductive Abnormal Bleeding Symptoms Vaginal Discharge Large Amount Vaginal Discharge Clots,Thick Description Vaginal Discharge Red Color Now No Breast Feeding Now No 6 Para 3 Vaginal Bleeding Assessment Associated Symptoms Abdominal Pain,Back Pain,Cramping,Dizziness Amount Moderate,With Clots Description Bright Red Onset 09/28/25 Last Vital Signs Temperature 98 F 11/15/25 23:26 Pulse Rate 83 11/16/25 00:02 Respiratory Rate 18 11/16/25 00:02 Pulse Oximetry 100 11/16/25 00:02 Blood Pressure 140/77 11/16/25 00:02 Blood Pressure Mean 98 11/16/25 00:02 Blood Pressure Position Left Lateral 11/15/25 23:26 Oxygen Delivery Room Air 11/15/25 19:01 Weight 48.3 kg 11/15/25 19:01 Last Result - Abnormals Only RBC 2.37 M/mm3 (4.2-5.4) L 11/15/25 19:53 Hgb 6.4 g/dL (12.0-15.0) L* D 11/15/25 19:53 Hct 21.1 % (37.0-47.0) L 11/15/25 19:53 MCHC 30.3 g/dl (32-36) L 11/15/25 19:53 RDW 17.2 % (11.5-14.5) H 11/15/25 19:53 [place] % (Auto) 12.3 % (2.6-8.5) H 11/15/25 19:53 Eos % (Auto) 5.5 % (0-4.4) H 11/15/25 19:53 Potassium 3.3 mmol/L (3.4-5.0) L 11/15/25 19:53 Chloride 108 mmol/L (98-107) H 11/15/25 19:53 Anion Gap 3 mmol/L (4-12) L 11/15/25 19:53 Total Bilirubin < 0.1 mg/dL (0.2-1.3) L 11/15/25 19:53 Urine Ketones Trace mg/dL (Negative) H 11/15/25 20:03 Ur Blood (Man) Non-hemolyzed trace (Negative) H 11/15/25 20:03 Urine RBC 11-20 /hpf (0-2) H 11/15/25 20:03 Crossmatch See Detail 11/15/25 20:32 Most Recent Suicide Severity Rating Suicide Severity Rating NO RISK INDICATED 11/15/25 19:01 Initialized on 11/16/25 00:08 - END OF NOTE 11/15/25 23:25 Nurse Note by Kamala Alcala Report given to ILEANA Nuñez. Initialized on 11/15/25 23:25 - END OF NOTE 11/15/25 22:10 (created 11/15/25 22:19) Nurse Note by Kamala Alcala DISTRI[employer]ION SYSTEM OPERATOR [facility] at bedside performing pelvic exam. Initialized on 11/15/25 22:19 - END OF NOTE 11/15/25 21:42 (created 11/15/25 21:49) Nurse Note by Kamala Alcala Pt. continues to c/o intermittent all over itching. No hives present. Pt. mildly agitated as a result of the itching. Pt. states this started a few nights ago. It comes and goes. I don't know why it happens. Pt. remains A&Ox4, and is cooperative. VSS. Breathing equal and unlabored. Initialized on 11/15/25 21:49 - END OF NOTE 11/15/25 21:17 Nurse Note by Kamala Alcala Pt. became agitated after reglan administration. HR increased to 120, pt. tearful and pulling off blanket and thrashing about in bed. DISTRIBUTION SYSTEM OPERATOR [place] notified. Additional benadryl ordered. Pt. agitation improved after 2nd dose of benadryl was given. Initialized on 11/15/25 21:17 - END OF NOTE 11/15/25 20:10 Nurse Note by Kamala Alcala Ultrasound at bedside. Initialized on 11/15/25 20:10 - END OF NOTE Interventions/Assessments IV / Saline Lock, Insert Start: 11/15/25 18:56 Freq: Status: Active Protocol: Document 11/15/25 20:34 KJT (Rec: 11/15/25 20:34 KJT [id number]) IV Assessment Peripheral Access Left Forearm IV Catheter Access Initiated IV Insertion Date 11/15/25 IV Insertion Time 20:34 Catheter Gauge 20 IV Insertion 1 Attempts Ultrasound Used for No Placement IV Site Assessment WNL IV Care and WNL Maintenance PA: Gastrointestinal Assessment Start: 11/15/25 18:56 Freq: Status: Active Protocol: Document 11/15/25 19:59 KJT (Rec: 11/15/25 20:00 KJT [id number]) GI Assessment Gastrointestinal Constipation,Pain Symptoms Description Flat,Soft Pattern Constipated Nausea/Vomiting Assessment Nausea Frequency None Emesis Frequency None PA: Reproductive Assessment Start: 11/15/25 20:00 Freq: Status: Active Protocol: Document 11/15/25 20:00 KJT (Rec: 11/15/25 20:02 KJT [id number]) Reproductive Assessment Reproductive Abnormal Bleeding Symptoms Vaginal Discharge Large Amount Vaginal Discharge Clots,Thick Description Vaginal Discharge Red Color Now No Breast Feeding Now No 6 Para 3 Vaginal Bleeding Assessment Associated Symptoms Abdominal Pain,Back Pain,Cramping,Dizziness Amount Moderate,With Clots Description Bright Red Onset 09/28/25 Last Vital Signs Temperature 98.4 F 11/16/25 00:26 Pulse Rate 61 11/16/25 01:03 Respiratory Rate 16 11/16/25 01:03 Pulse Oximetry 99 11/16/25 01:03 Blood Pressure 129/83 11/16/25 01:03 Blood Pressure Mean 98 11/16/25 01:03 Blood Pressure Position Left Lateral 11/15/25 23:26 Oxygen Delivery Room Air 11/15/25 19:01 Weight 48.3 kg 11/15/25 19:01 Last Result - Abnormals Only RBC 2.37 M/mm3 (4.2-5.4) L 11/15/25 19:53 Hgb 6.4 g/dL (12.0-15.0) L* D 11/15/25 19:53 Hct 21.1 % (37.0-47.0) L 11/15/25 19:53 MCHC 30.3 g/dl (32-36) L 11/15/25 19:53 RDW 17.2 % (11.5-14.5) H 11/15/25 19:53 [place] % (Auto) 12.3 % (2.6-8.5) H 11/15/25 19:53 Eos % (Auto) 5.5 % (0-4.4) H 11/15/25 19:53 Potassium 3.3 mmol/L (3.4-5.0) L 11/15/25 19:53 Chloride 108 mmol/L (98-107) H 11/15/25 19:53 Anion Gap 3 mmol/L (4-12) L 11/15/25 19:53 Total Bilirubin < 0.1 mg/dL (0.2-1.3) L 11/15/25 19:53 Urine Ketones Trace mg/dL (Negative) H 11/15/25 20:03 Ur Blood (Man) Non-hemolyzed trace (Negative) H 11/15/25 20:03 Urine RBC 11-20 /hpf (0-2) H 11/15/25 20:03 Crossmatch See Detail 11/15/25 20:32 Most Recent Suicide Severity Rating Suicide Severity Rating NO RISK INDICATED 11/15/25 19:01
[2025-11-16 02:12] LABS: Hematocrit 26.2 % (37.0-47.0); Hemoglobin 8.4 g/dL (12.0-15.0)
[2025-11-16 02:20] VITALS: BP 124/97; PULSE 63; RESP 18; TEMP 36.6; O2SAT 100; BMI 19.0
[2025-11-16 05:31] VITALS: BP 125/76; PULSE 71; RESP 14; TEMP 36.2; O2SAT 100
[2025-11-16 06:29] LABS: Hematocrit 27.8 % (37.0-47.0); Hemoglobin 8.7 g/dL (12.0-15.0)
[2025-11-16] MEDS: IBUPROFEN 400 MG TABLET PO (10:23)
[2025-11-16 12:19] LABS: Hematocrit 28.5 % (37.0-47.0); Hemoglobin 9.1 g/dL (12.0-15.0)
--- NOTE | 2025-11-16 13:54 | P.HP_ITS ---
H&P: HPI History of Present Illness Date/Time: 11/16/25 13:54 Chief Complaint: Vaginal bleeding Narrative: This patient is a 30-year-old female, multiparous, recent miscarriage with excessive post miscarriage bleeding. Presented to the emergency department for management of bleeding and was found have a hemoglobin of 6. Ultrasound did not reveal retained products conception. Patient was transfused. She had been observed. Her bleeding has improved. We discussed her treatment options. We agreed to follow-up in 2 days at the office. Will consider D&C. Patient desires salpingectomy. Review of Systems Review of Systems: All systems reviewed & are unremarkable except as noted in HPI and below Constitutional: Constitutional: Denies chills, Denies fatigue, Denies fever(s) and Denies weakness Eyes: Eyes: Denies blurry vision, Denies change in vision, Denies loss of peripheral vision, Denies loss of vision, Denies other visual disturbances and Denies eye pain ENT: Denies vertigo, Denies dizziness, Denies hearing loss, Denies mouth pain, Denies nasal obstruction, Denies neck mass and Denies neck pain Cardiovascular: Cardiovascular: Denies chest pain, Denies diaphoresis, Denies syncope, Denies leg edema and Denies dyspnea Respiratory: Respiratory: Denies chest congestion, Denies cough, Denies hemoptysis, Denies dyspnea and Denies wheezing Gastrointestinal: Gastrointestinal: Denies abdominal pain, Denies constipat ion, Denies diarrhea, Denies nausea and Denies vomiting Genitourinary: Genitourinary: Denies hematuria, Denies change in libido, Denies nocturia, Denies genital lesions, Denies flank pain and Denies urinary urgency Musculoskeletal: Musculoskeletal: Denies abnormal gait, Denies back pain, Den ies myalgias, Denies arthralgias, Denies joint swelling, Denies muscle weakness and Denies neck pain Integumentary/Breasts: Skin/Breast: Denies swelling, Denies breast pain, Denies breast mass, Denies dry skin, Denies nipple discharge, Denies unusual bruising and Denies jaundice Neurologic: Denies Neuro-related abnormal movements, Denies Abnormal speech present, Denies abnormal gait, Denies behavioral changes, Denies confusion, Denies vertigo, Denies dizziness, Denies syncope, Denies loss of vision, Denies memory loss, Denies convulsions and Denies weakness Psychiatric: Psychiatric: Denies abnormal sleep pattern, Denies behavioral changes, Denies change in libido, Denies confusion, Denies depression, Denies anhedonia and Denies memory loss Endocrine: Endocrine: Reports no additional endocrine complaints, Denies change in libido and Denies fatigue Hematologic/Lymphatic: Hematologic/Lymphatic: Reports no additional hematologic/lymphatic complaints Allergic/Immunologic: Allergic/Immunologic: Reports no additional allergic/immunologic complaints and Denies wheezing PMFSH Past Medical History Medical History History of gastroesophageal reflux (GERD) Social History Social History Smoking status: Current every day smoker Tobacco type: cigarettes Second hand tobacco smoke exposure: Yes Alcohol intake: current Substance use: current Substance use type: marijuana Lack of Transportation: No Lack of Food: Never True Current Housing: I Have Housing Concerned About Future Housing: No Difficulty Paying Gas/Electric Bills: No Difficulty Paying for Meds: No Currently Unemployed: Decline to Answer Education: Decline to Answer Difficulty w/ Childcare or Family Care: Decline to Answer Spiritual care concerns: No Meds Home Medications and Allergies Home Medications ?Medication ?Instructions ?Recorded ?Confirmed ?Type albuterol sulfate 90 mcg/actuation inhalation 06/06/24 History aerosol inhaler vitamins no.119-iron tablet PO 06/06/24 Hist ory fumarate 29 mg-folic acid 1 mg tablet (Se- 19) ursodiol 300 mg capsule 300 mg PO BID #14 caps 06/0611/16/25 Rx ondansetron 4 mg disintegrating 4 mg PO Q8H PRN nausea and 12/02/24 11/16/25 Rx tablet vomiting #14 tabs budesonide-formoterol HFA 160 inhalation 11/16/25 His tory mcg-4.5 mcg/actuation aerosol inhaler (Symbicort) escitalopram oxalate 20 mg tablet mg 11/16/25 History labetalol 200 mg tablet mg 11/16/25 History Allergies Allergy/AdvReac Type Severity Reaction Status Date / Time Latex, Natural Rubber Allergy Rash Verified 11/16/25 02:26 metoclopramide (From Reglan) AdvReac Intermediate Agitated Verified 11/16/25 02:26 Vital Signs Vital Signs - 24 hr 11/15/25 19:01 11/15/25 19:16 11/15/25 19:31 Temperature 98.4 F Pulse Rate 76 71 75 Respiratory Rate 17 16 18 Blood Pressure 125/74 120/70 112/72 Pulse Oximetry 100 100 98 Oxygen Delivery Room Air 11/15/25 20:01 11/15/25 21:46 11/15/25 22:02 Temperature 98.1 F 98.1 F Pulse Rate 80 95 85 Respiratory Rate 20 16 16 Blood Pressure 127/67 124/77 133/93 H Pulse Oximetry 100 99 100 Oxygen Delivery 11/15/25 22:45 11/15/25 23:11 11/15/25 23:26 Temperature 98.2 F 98.3 F 98 F Pulse Rate 71 67 78 Respiratory Rate 16 16 14 Blood Pressure 125/84 120/76 136/88 Pulse Oximetry 100 100 100 Oxygen Delivery 11/16/25 00:02 11/16/25 00:26 11/16/25 01:03 Temperature 98.4 F Pulse Rate 83 60 61 Respiratory Rate 18 14 16 Blood Pressure 140/77 140/77 129/83 Pulse Oximetry 100 100 99 Oxygen Delivery 11/16/25 02:20 11/16/25 05:31 Temperature 97.8 F 97.1 F L Pulse Rate 63 71 Respiratory Rate 18 14 Blood Pressure 124/97 H 125/76 Pulse Oximetry 100 100 Oxygen Delivery Exam Const: General: cooperative, healthy appearing, comfortable and no acute distress Orientation/consciousness: oriented to person, oriented to place and oriented to time HENMT: Head: normal to inspection Ears: external ears normal Face/Nose/Sinus: Normal external nose present and normal facial exam Face and sinus: normal facial exam Eyes: General: appearance normal, both eyes and all related structures Neck: Neck: normal visual inspection, trachea midline and supple Resp: Auscultation: clear to auscultation bilaterally, no crackles, no rales, no rhonchi and no wheezes Cardio: Rate: regular rate Rhythm: regular rhythm Heart sounds: no click, no murmurs and no rubs GI: GI Palp: No abdominal tenderness, No Soft to palpation, No Tenderness to palpation present (GI) and No Palpable mass present Auscultation: normal bowel sounds Skin: General skin exam: normal color and no rashes or lesions noted Neuro: General: oriented to person, oriented to place and oriented to time Extrem: General: normal to inspection, no joint enlargement, no clubbing, cyanosis or edema, no pedal edema and no calf tenderness Psych: Appearance: grossly normal Mental Status: mental status grossly normal Speech and movement: Normal speech and movement present Results Labs Labs: Short CBC 11/15/25 11/16/25 11/16/25 Range/Units 19:53 02:05 06:10 WBC 5.0 (4.5-10.0) K/mm3 Hgb 6.4 L* D 8.4 L 8.7 L (12.0-15.0) g/dL Hct 21.1 L 26.2 L 27.8 L (37.0-47.0) % Plt Count 170 (150-375) k/mm3 11/16/25 Range/Units 11:59 WBC (4.5-10.0) K/mm3 Hgb 9.1 L (12.0-15.0) g/dL Hct 28.5 L (37.0-47.0) % Plt Count (150-375) k/mm3 [facility] 11/15/25 19:53 Sodium 139 Potassium 3.3 L Chloride 108 H Carbon Dioxide 28 BUN 14 Creatinine 0.78 Glucose 78 Calcium 8.9 Liver Function 11/15/25 Range/Units 19:53 Total Bilirubin < 0.1 L (0.2-1.3) mg/dL AST 30 (14-36) U/L ALT 27 (6-35) U/L Alkaline Phosphatase 71 (38-126) U/L Albumin 3.9 (3.5-5.1) g/dL Urine 11/15/25 Range/Units 20:03 Urine Color Yellow (Yellow) Urine Appearance Clear (Clear) Urine pH 7.0 (5.0-9.0) Ur Specific [place] 1.027 (1.001-1.035) Urine Protein Trace (Negative) mg/dL Urine Glucose (UA) Negative (Negative) mg/dL Assessment and Plan Assessment and plan (1) Vaginal bleeding: Code(s): N93.9 - Abnormal uterine and vaginal bleeding, unspecified Status: Acute Plan This patient is a 30-year-old female, multiparous, recent miscarriage with excessive post miscarriage bleeding. Presented to the emergency department for management of bleeding and was found have a hemoglobin of 6. Ultrasound did not reveal retained products conception. Patient was transfused. She had been observed. Her bleeding has improved. We discussed her treatment options. We agreed to follow-up in 2 days at the office. Will consider D&C. Patient desires salpingectomy.
--- NOTE | 2025-11-16 13:58 | P.DS_ITS ---
DS: Admitting Diagnosis Discharge Date 11/16/2025 Admitting Diagnosis Vaginal bleeding DS: Discharge Diagnosis Discharge Diagnosis (1) Abnormal vaginal bleeding: Code(s): N93.9 - Abnormal uterine and vaginal bleeding, unspecified Status: Acute DS: Summary Hospital Course Hospital Course: This patient is a 30-year-old female, multiparous, recent miscarriage with excessive post miscarriage bleeding. Presented to the emergency department for management of bleeding and was found have a hemoglobin of 6. Ultrasound did not reveal retained products conception. Patient was transfused. She had been observed. Her bleeding has improved. We discussed her treatment options. We agreed to follow-up in 2 days at the office. Will consider D&C. Patient desires salpingectomy. Time Spent with Patient Time attestation: Total time spent providing and/or coordinating discharge services: DS: Data Data Completed and Pending Labs on day of discharge: Labs from last 24 hours 11/16/25 11/16/25 11/16/25 11:59 06:10 02:05 WBC RBC Hgb 9.1 L 8.7 L 8.4 L Hct 28.5 L 27.8 L 26.2 L MCV MCH MCHC RDW Plt Count MPV Immature Gran % (Auto) Neut % (Auto) Lymph % (Auto) [place] % (Auto) Eos % (Auto) Baso % (Auto) Lymph # (Auto) [place] # (Auto) Eos # (Auto) Baso # (Auto) Abs Immat Gran (auto) Absolute Neuts (auto) Absolute Nucleated RBC Nucleated RBC % PT INR APTT Sodium Potassium Chloride Carbon Dioxide Anion Gap BUN Creatinine Estim Creat Clear Calc Estimated GFR Glucose Calcium Total Bilirubin AST ALT Alkaline Phosphatase Total Protein Albumin Beta HCG, Quant Urine Color Urine Appearance Urine pH Ur Specific [place] Urine Protein Urine Glucose (UA) Urine Ketones Ur Blood (Man) Urine Nitrate Urine Bilirubin Urine Urobilinogen Leukocyte Esterase Rfl Urine RBC Urine WBC Ur Squamous Epith Cells Urine Bacteria Urine Casts Influenza A (RT-PCR) Influenza B (RT-PCR) RSV (RT-PCR) SARS-CoV-2 RNA (RT-PCR) Blood Type Antibody Screen Crossmatch 11/15/25 11/15/25 11/15/25 22:42 20:32 20:03 WBC RBC Hgb Hct MCV MCH MCHC RDW Plt Count MPV Immature Gran % (Auto) Neut % (Auto) Lymph % (Auto) [place] % (Auto) Eos % (Auto) Baso % (Auto) Lymph # (Auto) [place] # (Auto) Eos # (Auto) Baso # (Auto) Abs Immat Gran (auto) Absolute Neuts (auto) Absolute Nucleated RBC Nucleated RBC % PT INR APTT Sodium Potassium Chloride Carbon Dioxide Anion Gap BUN Creatinine Estim Creat Clear Calc Estimated GFR Glucose Calcium Total Bilirubin AST ALT Alkaline Phosphatase Total Protein Albumin Beta HCG, Quant Urine Color Yellow Urine Appearance Clear Urine pH 7.0 Ur Specific [place] 1.027 Urine Protein Trace Urine Glucose (UA) Negative Urine Ketones Trace H Ur Blood (Man) Non-hemolyzed trace H Urine Nitrate Negative Urine Bilirubin Negative Urine Urobilinogen 1.0 Leukocyte Esterase Rfl Negative Urine RBC 11-20 H Urine WBC 0-5 Ur Squamous Epith Cells None seen Urine Bacteria None seen Urine Casts 0-2 Influenza A (RT-PCR) Negative Influenza B (RT-PCR) Negative RSV (RT-PCR) Negative SARS-CoV-2 RNA (RT-PCR) Negative Blood Type B Positive Antibody Screen Negative Crossmatch See Detail 11/15/25 19:53 WBC 5.0 RBC 2.37 L Hgb 6.4 L* D Hct 21.1 L MCV 89.0 MCH 27.0 MCHC 30.3 L RDW 17.2 H Plt Count 170 MPV 10.4 Immature Gran % (Auto) 0.2 Neut % (Auto) 49.7 Lymph % (Auto) 31.5 [place] % (Auto) 12.3 H Eos % (Auto) 5.5 H Baso % (Auto) 0.8 Lymph # (Auto) 1.56 [place] # (Auto) 0.6 Eos # (Auto) 0.3 Baso # (Auto) 0.0 Abs Immat Gran (auto) 0.01 Absolute Neuts (auto) 2.5 Absolute Nucleated RBC 0.000 Nucleated RBC % 0.0 PT 14.3 INR 1.1 APTT 29.6 Sodium 139 Potassium 3.3 L Chloride 108 H Carbon Dioxide 28 Anion Gap 3 L BUN 14 Creatinine 0.78 Estim Creat Clear Calc 70 Estimated GFR > 60 Glucose 78 Calcium 8.9 Total Bilirubin < 0.1 L AST 30 ALT 27 Alkaline Phosphatase 71 Total Protein 6.6 Albumin 3.9 Beta HCG, Quant < 2.39 Urine Color Urine Appearance Urine pH Ur Specific [place] Urine Protein Urine Glucose (UA) Urine Ketones Ur Blood (Man) Urine Nitrate Urine Bilirubin Urine Urobilinogen Leukocyte Esterase Rfl Urine RBC Urine WBC Ur Squamous Epith Cells Urine Bacteria Urine Casts Influenza A (RT-PCR) Influenza B (RT-PCR) RSV (RT-PCR) SARS-CoV-2 RNA (RT-PCR) Blood Type Antibody Screen Crossmatch Discharge Plan Discharge Discharging Clinician: Froylan Dumont Patient Disposition: Home Activity: pelvic rest Diet: regular Patient Instructions: Antibiotic Form Patient Language: Yi Stand Alone Forms: General Discharge Information Follow-up/Referrals: Froylan Dumont MD [Physician, [employer]] Discharge Medications: Continued ondansetron 4 mg tablet,disintegrating 4 mg PO Q8H PRN (Reason: nausea and vomiting) Qty: 14 0RF albuterol sulfate 90 mcg/actuation HFA aerosol inhaler INHALATION Se-Lizet 19 29 mg iron- 1 mg tablet PO ursodiol 300 mg Capsule 300 mg PO BID Qty: 14 0RF labetalol 200 mg tablet Patient Comments: cant remember exact day of intake, she said few days ago escitalopram oxalate 20 mg tablet Patient Comments: unable to remember exact date she last took it, she said few days ago budesonide-formoterol [Symbicort] 160-4.5 mcg/actuation HFA aerosol inhaler INHALATION Patient Comments: cant remember when was the last time she used it Date of admission: 11/15/25 23:34 Primary Care Provider: UNKNOWN,DOCTOR Admitting Provider: Shantanu Shannon Attending physician on admission: Shantanu Shannon Condition: Serious
[2025-11-16 14:00] VITALS: BP 138/77; PULSE 106; RESP 18; TEMP 36.4; O2SAT 100
== END 2025-11-16 14:52 | disposition home or self-care (01) ==
LOC: ANHED 22:37 → ANHLDR 11-16 00:17 → ANH3MEDSUR 11-16 01:10
PROVIDERS: Admitting Provider Obstetrics & Gynecology; Emergency Provider Registered Nurse; Visit Provider Obstetrics & Gynecology
DX: O03.6 Delayed or excessive hemorrhage following complete or unspecified spontaneous abortion (principal); K21.9 Gastro-esophageal reflux disease without esophagitis; F17.210 Nicotine dependence, cigarettes, uncomplicated; F12.90 Cannabis use, unspecified, uncomplicated; Z20.822 Contact with and (suspected) exposure to COVID-19; Z79.51 Long term (current) use of inhaled steroids
CPT/HCPCS: 36415; 36430; 76801; 80053; 81001; 84702; 85014; 85018; 85025; 85610; 85730; 86850; 86900; 86901; 86923; 87637; 96361; 96374; 96375; 99285; A9270; G0378; G0379; J1200; J2765; J7050; P9016